=== PATIENT | male | born 1970 | race American Indian/Alaskan Native ===

== ENCOUNTER 2021-09-22 09:37 | Emergency (ER) | payer SELFPAY ==
[2021-09-22] MEDS ORDERED: ASPIRIN 81 MG TAB CHEW PO ONE ×2 (11:11→19:00)
[2021-09-22 12:00] LABS: Basophils # (Auto) 0.1 K/mm3 (0.0-0.1); Basophils % (Auto) 0.9 % (0.0-1.8); Eosinophils % (Auto) 0.5 % (0.0-4.3); Hematocrit 45.8 % (35.5-45.6); Lymphocytes # (Auto) 1.4 K/mm3 (1.2-5.4); Lymphocytes % (Auto) 21.2 % (13.4-35.0); Mean Corpuscular HGB Conc 33 % (32-34); Mean Corpuscular Volume 83 fl (84-94); Monocytes # (Auto) 0.6 K/mm3 (0.0-0.8); Monocytes % (Auto) 8.1 % (0.0-7.3); Platelet Count 407 K/mm3 (140-440); Red Cell Distribution Width 15.9 % (13.2-15.2)
--- NOTE | 2021-09-22 12:16 | XRay Report ---
CHEST 2 VIEWS, 09/22/2021 INDICATION: Shortness of breath COMPARISON: Chest radiograph, 01/06/2014 FINDINGS: Support devices: None. Heart: There is stable moderate enlargement of the cardiac silhouette. Lungs/pleura: Stable faint interstitial markings are noted bilaterally. No focal consolidation, large pleural effusion or pneumothorax. Additional findings: No significant acute abnormality. IMPRESSION: 1. Stable enlargement of the cardiac silhouette. 2. Stable faint interstitial markings suggesting mild pulmonary edema. Signer Name: Kathrine Morejon MD Signed: 09/22/2021 12:06 PM Workstation Name: [id number]
[2021-09-22 12:25] LABS: Albumin 4.1 g/dL (3.9-5); Calcium 9.5 mg/dL (8.4-10.2)
[2021-09-22] MEDS ORDERED: POTASSIUM CHLORIDE ER 20 MEQ TAB PO ONE ×2 (13:19→19:00)
[2021-09-22] MEDS ORDERED: MAGNESIUM SULFATE 2 GM/50 ML BAG IV ONE (13:30)
[2021-09-22 16:29] LABS: Calcium 9.4 mg/dL (8.4-10.2)
--- NOTE | 2021-09-22 18:00 | Emergency Department Report ---
ED General Adult HPI - General Chief complaint: Dyspnea/Respdistress Stated complaint: BREATHING PROBLEMS/STOMACH PAINS Time Seen by Provider: 09/22/21 17:52 Source: patient, RN notes reviewed Mode of arrival: Ambulatory Limitations: No Limitations - History of Present Illness Initial comments: The patient was evaluated in the emergency department for symptoms described in the history of present illness. He/she was evaluated in the context of the [facility] COVID-19 pandemic, which necessitated consideration that the patient might be at risk for infection with the virus that causes COVID-19. Institutional protocols and algorithms that pertain to the evaluation of patients at risk for COVID-19 are in a state of rapid change based on information released by regulatory bodies including the CDC and federal and state organizations. These policies and algorithms were followed during the patient's care in the emergency department. Please note that these policies, procedures and recommendations changed on a rapid basis. This is a 51-year-old gentleman who has a history of hypertension and is poorly compliant with his lisinopril. To the best of his knowledge he does not have a past medical history of renal insufficiency, or congestive heart failure. He presents to the department today with a complaint of shortness of breath, epigastric tightness, some trouble breathing, and lower extremity swelling. He denies physical pain per se. His symptoms are present for about a week. He denies travel, surgery, immobilization, DVT and pulmonary embolism risk factors. -: Gradual, days(s) Location: abdomen, left, right, lower extremity Severity scale (0 -10): 0 Consistency: constant Improves with: none Worsens with: none - Related Data Allergies Allergy/AdvReac Type Severity Reaction Status Date / Time No Known Allergies Allergy Unverified 09/22/21 11:03 ED Review of Systems ROS: Stated complaint: BREATHING PROBLEMS/STOMACH PAINS Other details as noted in HPI Constitutional: denies: fever ENT: congestion Respiratory: orthopnea, shortness of breath, SOB with exertion, SOB at rest, wheezing Cardiovascular: edema Gastrointestinal: abdominal pain. denies: nausea, vomiting, hematemesis, melena, hematochezia Genitourinary: denies: dysuria Musculoskeletal: denies: back pain Neurological: denies: weakness Hematological/Lymphatic: denies: easy bleeding ED Past Medical Hx - Past Medical History Hx Hypertension: Yes - Surgical History Past Surgical History?: Yes Additional Surgical History: abd surgery ED Physical Exam - General Limitations: No Limitations General appearance: alert, in no apparent distress - Head Head exam: Present: atraumatic, normocephalic - Eye Eye exam: Present: normal appearance, EOMI. Absent: nystagmus - ENT ENT exam: Present: normal exam, normal orophraynx, mucous membranes moist, normal external ear exam - Neck Neck exam: Present: normal inspection, full ROM. Absent: tenderness, meningismus - Respiratory Respiratory exam: Present: rales. Absent: respiratory distress, rhonchi, stridor - Cardiovascular Cardiovascular Exam: Present: regular rate, normal rhythm, JVD. Absent: marshal ycardia, tachycardia, irregular rhythm, systolic murmur, diastolic murmur, rubs, gallop - GI/Abdominal GI/Abdominal exam: Present: soft. Absent: distended, tenderness, guarding, rebound, rigid, pulsatile mass - Rectal Rectal exam: Present: deferred - Extremities Exam Extremities exam: Present: normal inspection, full ROM, pedal edema (2+ edema in the bilateral lower extremity), other (2+ pulses noted in the bilateral upper and lower extremities. There is no palpable cord. negative Homans sign. Muscular compartments are soft. The pelvis is stable.). Absent: calf tenderne ss - Back Exam Back exam: Present: normal inspection. Absent: tenderness, CVA tenderness (R), CVA tenderness (L), paraspinal tenderness, vertebral tenderness - Neurological Exam Neurological exam: Present: alert, oriented X3, other (No facial droop. Tongue midline. Extraocular movements intact bilaterally. Facial sensation intact to light touch in V1, V2, V3 distribution bilaterally. 5 and a 5 strength in 4 extremities. Sensation intact to light touch in 4 extremities.). Absent: motor sensory deficit - Psychiatric Psychiatric exam: Present: normal affect, normal mood - Skin Skin exam: Present: warm, dry, intact, normal color. Absent: rash ED Course Vital Signs 09/22/21 10:56 Temperature 98.1 F Pulse Rate 78 Respiratory 20 Rate Blood Pressure 217/145 [Right] O2 Sat by Pulse 97 Oximetry ED Medical Decision Making - Lab Data Result diagrams: 09/22/21 11:31 09/22/21 15:46 Vital Signs 09/22/21 10:56 Temperature 98.1 F Pulse Rate 78 Respiratory 20 Rate Blood Pressure 217/145 [Right] O2 Sat by Pulse 97 Oximetry Lab Results 09/22/21 09/22/21 09/22/21 Range/Units 01:43 11:31 11:31 WBC 6.8 (4.5-11.0) K/mm3 RBC 5.50 H (3.65-5.03) M/mm3 Hgb 15.0 (11.8-15.2) gm/dl Hct 45.8 H (35.5-45.6) % MCV 83 L (84-94) fl MCH 27 L (28-32) pg MCHC 33 (32-34) % RDW 15.9 H (13.2-15.2) % Plt Count 407 (140-440) K/mm3 Lymph % (Auto) 21.2 (13.4-35.0) % [place] % (Auto) 8.1 H (0.0-7.3) % Eos % (Auto) 0.5 (0.0-4.3) % Baso % (Auto) 0.9 (0.0-1.8) % Lymph # (Auto) 1.4 (1.2-5.4) K/mm3 [place] # (Auto) 0.6 (0.0-0.8) K/mm3 Eos # (Auto) 0.0 (0.0-0.4) K/mm3 Baso # (Auto) 0.1 (0.0-0.1) K/mm3 Seg Neutrophils % 69.3 (40.0-70.0) % Seg Neutrophils # 4.7 (1.8-7.7) K/mm3 Sodium 135 L (137-145) mmol/L Potassium 2.7 L* (3.6-5.0) mmol/L Chloride 93.0 L (98-107) mmol/L Carbon Dioxide 27 (22-30) mmol/L Anion Gap 18 mmol/L BUN 44 H (9-20) mg/dL Creatinine 1.9 H (0.8-1.3) mg/dL Estimated GFR 37 ml/min BUN/Creatinine Ratio 23 % Glucose 129 H (75-100) mg/dL Calcium 9.5 (8.4-10.2) mg/dL Magnesium 1.90 (1.7-2.3) mg/dL Total Bilirubin 2.30 H (0.1-1.2) mg/dL AST 57 H (5-40) units/L ALT 64 H (7-56) units/L Alkaline Phosphatase 85 (35-129) units/L Troponin T 0.022 (0.00-0.029) ng/mL NT-Pro-B Natriuret Pep 5697 H (0-900) pg/mL Total Protein 6.9 (6.3-8.2) g/dL Albumin 4.1 (3.9-5) g/dL Albumin/Globulin Ratio 1.5 % Lipase (13-60) units/L 09/22/21 09/22/21 09/22/21 Range/Units 11:31 14:37 15:46 WBC (4.5-11.0) K/mm3 RBC (3.65-5.03) M/mm3 Hgb (11.8-15.2) gm/dl Hct (35.5-45.6) % MCV (84-94) fl MCH (28-32) pg MCHC (32-34) % RDW (13.2-15.2) % Plt Count (140-440) K/mm3 Lymph % (Auto) (13.4-35.0) % [place] % (Auto) (0.0-7.3) % Eos % (Auto) (0.0-4.3) % Baso % (Auto) (0.0-1.8) % Lymph # (Auto) (1.2-5.4) K/mm3 [place] # (Auto) (0.0-0.8) K/mm3 Eos # (Auto) (0.0-0.4) K/mm3 Baso # (Auto) (0.0-0.1) K/mm3 Seg Neutrophils % (40.0-70.0) % Seg Neutrophils # (1.8-7.7) K/mm3 Sodium 136 L (137-145) mmol/L Potassium 2.8 L* (3.6-5.0) mmol/L Chloride 94.5 L (98-107) mmol/L Carbon Dioxide 24 (22-30) mmol/L Anion Gap 20 mmol/L BUN 44 H (9-20) mg/dL Creatinine 1.9 H (0.8-1.3) mg/dL Estimated GFR 37 ml/min BUN/Creatinine Ratio 23 % Glucose 139 H (75-100) mg/dL Calcium 9.4 (8.4-10.2) mg/dL Magnesium (1.7-2.3) mg/dL Total Bilirubin (0.1-1.2) mg/dL AST (5-40) units/L ALT (7-56) units/L Alkaline Phosphatase (35-129) units/L Troponin T 0.017 (0.00-0.029) ng/mL NT-Pro-B Natriuret Pep (0-900) pg/mL Total Protein (6.3-8.2) g/dL Albumin (3.9-5) g/dL Albumin/Globulin Ratio % Lipase 28 (13-60) units/L - EKG Data -: EKG Interpreted by Ca EKG shows normal: sinus rhythm Rate: normal - EKG Data When compared to previous EKG there are: previous EKG unavailable 09/22/21 18:15 The EKG is interpreted at 11: 07 Sinus rhythm, rate 86 bpm. Left axis deviation, left anterior fascicular block, interventricular conduction delay, QTC is 509 ms. This is an abnormal EKG. This is not a STEMI - Radiology Data Radiology results: pending, report reviewed, image reviewed CHEST 2 VIEWS, 09/22/2021 INDICATION: Shortness of breath COMPARISON: Chest radiograph, 01/06/2014 FINDINGS: Support devices: None. Heart: There is stable moderate enlargement of the cardiac silhouette. Lungs/pleura: Stable faint interstitial markings are noted bilaterally. No focal consolidation, large pleural effusion or pneumothorax. Additional findings: No significant acute abnormality. IMPRESSION: 1. Stable enlargement of the cardiac silhouette. 2. Stable faint interstitial markings suggesting mild pulmonary edema. Signer Name: Kathrine Morejon MD Signed: 09/22/2021 11:06 AM Workstation Name: [id number] - Medical Decision Making Differential diagnosis, include but not limited to: Acute congestive heart failure, congestive heart failure with cardiorenal syndrome, hypertensive urgency, noncompliance, hypokalemia, electrolyte derangement, congestive hepatopathy Assessment and plan: 51-year-old gentleman with evidence of mild to moderate decompensated congestive heart failure with cardiorenal syndrome, manifested by JVD, pulmonary edema, congestive hepatopathy, and elevated proBNP. He denies DVT and pulmonary embolism risk factors, and is low risk by Wells criteria for pulmonary embolism, and he also has a component of hypertensive urgency. Start Lasix, labetalol, potassium supplementation. He is agreeable to admission and hospitalization. Hospital physician, Dr. Peralta to assume care. Contacted cardiology on-call, Dr. Sullivan Discussed the patient's history, physical, laboratory studies and imaging studies and clinical impression. Cardiology will follow in consultation and is agreement with the plan of care. Critical Care Time: Yes Critical care time in (mins) excluding proc time.: 35 Critical care attestation.: If time is entered above; I have spent that time in minutes in the direct care of this critically ill patient, excluding procedure time. ED Disposition Clinical Impression: Cardiorenal syndrome with renal failure, Hypertensive urgency, Hypokalemia, No ncompliance with medication regimen Disposition: ADMITTED INPATIENT Is pt being admited?: Yes Does the pt Need Aspirin: No Condition: Good
[2021-09-22] MEDS ORDERED: FUROSEMIDE 40 MG/4 ML INJ IV ONE (18:05)
--- NOTE | 2021-09-22 18:19 | Consultation ---
History of Present Illness - Reason for Consult Consult date: 09/22/21 Hypertension Requesting physician: ROBERT MARTINEZ - History of Present Illness 51 YO Male with HTN, Medication Noncompliance, Obesity presents ED for evaluation. Patient reports "I feel like my food is getting stuck". Patient states that he has experienced epigastric discomfort over the past 2 days and he is running out of his medication. Patient seen and evaluated in the emergency department. All lab and imaging studies reviewed. Patient found to have uncontrolled hypertension, gastroesophageal reflux disease secondary to medication noncompliance. Patient also found to have clinical symptoms consistent with cardiomyopathy. Patient had fever, chills, chest pain, palpitation, productive cough, skin rash and recent contact, unilateral leg swelling, calf pain, individual/family history of DVT/PE/bleeding/blood clotting disorders, known exposure to COVID-19. Patient treated with antihypertensive therapy with normalization of patient blood pressure. Patient medically optimized and safely discharged home. Patient instructed to follow-up with primary care physician within 1 week with blood pressure log. Patient counseled regarding medication compliance. Past History Past Medical History: hypertension Past Surgical History: No surgical history, Other (Reviewed) Social history: . denies: smoking, alcohol abuse, prescription drug abuse Family history: diabetes, hypertension Medications and Allergies Allergies Allergy/AdvReac Type Severity Reaction Status Date / Time No Known Allergies Allergy Unverified 09/22/21 11:03 Home Medications Medication Instructions Recorded Confirmed Last Taken Type Furosemide [Lasix] 20 mg PO QDAY #30 tablet 09/22/21 Unknown Rx Lisinopril [Zestril] 5 mg PO DAILY #30 09/22/21 Unknown Rx Metoprolol [Lopressor TAB] 25 mg PO BID #60 tablet 09/22/21 Unknown Rx Pantoprazole [Protonix TAB] 20 mg PO QDAY #30 tablet 09/22/21 Unknown Rx Potassium Chloride [K-Dur] 10 meq PO QDAY #30 09/22/21 Unknown Rx Simvastatin 10 mg PO QHS #30 09/22/21 Unknown Rx Active Meds: Active Medications Potassium Chloride (Kcl 10meq/100ml) 10 meq in 100 mls @ 100 mls/hr IV Q1H CAROL Stop: 09/22/21 20:59 Review of Systems Constitutional: no weight loss, no weight gain, no fever, no chills, no sweats Ears, nose, mouth and throat: no nose pain, no nasal congestion, no sinus pressure Respiratory: no cough, no excessive sputum, no hemoptysis, no dyspnea on exertion Gastrointestinal: no abdominal pain, no constipation, no change in bowel habits, no hematemesis Genitourinary Male: no hematuria, no flank pain, no urinary hesitancy, no incontinence Rectal: no pain, no incontinence Musculoskeletal: no neck stiffness, no neck pain, no arm numbness/tingling, no low back pain, no shooting leg pain, no redness of joints Integumentary: no pruritis, no redness, no sores Neurological: no head injury, no transient paralysis, no seizures, no tremors Psychiatric: no memory loss, no sleep disturbances, no hypersomnia, no change in appetite, no change in libido, no suicidal ideation Endocrine: no cold intolerance, no excessive thirst, no polydipsia, no nocturia, no flushing Hematologic/Lymphatic: no easy bleeding Allergic/Immunologic: no urticaria, no wheezing Exam - Constitutional Vitals: Temp Pulse Resp BP Pulse Ox 98.1 F 78 20 217/145 97 09/22/21 10:56 09/22/21 10:56 09/22/21 10:56 09/22/21 10:56 09/22/21 10:56 General appearance: Present: no acute distress, well-nourished - EENT Eyes: Present: PERRL ENT: hearing intact, clear oral mucosa - Neck Neck: Present: supple, normal ROM - Respiratory Respiratory effort: normal Respiratory: bilateral: CTA - Cardiovascular Heart Sounds: Present: S1 & S2. Absent: rub, click - Extremities Extremities: pulses symmetrical, No edema Peripheral Pulses: within normal limits - Abdominal General gastrointestinal: Present: soft, non-tender, non-distended, normal bowel sounds Male genitourinary: Present: normal - Integumentary Integumentary: Present: clear, warm, dry - Musculoskeletal Musculoskeletal: gait normal, strength equal bilaterally - Psychiatric Psychiatric: appropriate mood/affect, intact judgment & insight - Neurologic Neurologic: CNII-XII intact, moves all extremities Results - Labs CBC & Chem 7: 09/22/21 11:31 09/22/21 15:46 Labs: Abnormal lab results 09/22/21 09/22/21 09/22/21 Range/Units 11:31 11:31 15:46 RBC 5.50 H (3.65-5.03) M/mm3 Hct 45.8 H (35.5-45.6) % MCV 83 L (84-94) fl MCH 27 L (28-32) pg RDW 15.9 H (13.2-15.2) % [place] % (Auto) 8.1 H (0.0-7.3) % Sodium 135 L 136 L (137-145) mmol/L Potassium 2.7 L* 2.8 L* (3.6-5.0) mmol/L Chloride 93.0 L 94.5 L (98-107) mmol/L BUN 44 H 44 H (9-20) mg/dL Creatinine 1.9 H 1.9 H (0.8-1.3) mg/dL Glucose 129 H 139 H (75-100) mg/dL Total Bilirubin 2.30 H (0.1-1.2) mg/dL AST 57 H (5-40) units/L ALT 64 H (7-56) units/L NT-Pro-B Natriuret Pep 5697 H (0-900) pg/mL Assessment and Plan - Patient Problems (1) Uncontrolled hypertension Status: Acute Plan to address problem: Patient and reinitiated on antihypertensive therapy with lisinopril and metoprolol with concomitant diuretic therapy with Lasix. Patient struck to follow-up with primary care physician within 1 week for blood pressure management. Patient struck to follow-up with cardiology as needed as outpatient. Patient counseled regarding low-sodium diet. (2) Cardiomyopathy Status: Suspected Qualifiers: Cardiomyopathy type: unspecified Qualified Code(s): I42.9 - Cardiomyopathy, unspecified Plan to address problem: Outpatient cardiology follow-up. (3) GERD (gastroesophageal reflux disease) Status: Acute Qualifiers: Esophagitis presence: without esophagitis Qualified Code(s): K21.9 - Gastro-esophageal reflux disease without esophagitis Plan to address problem: PPI therapy, outpatient GI follow-up. (4) Noncompliance with medication regimen Status: Acute Plan to address problem: Patient counseled regarding medication compliance. Patient acknowledges understanding instructions. (5) Advance care planning Status: Acute Plan to address problem: Disease education conducted, care plan discussed, diagnoses discussed, prognosis discussed, patient is full code. Patient acknowledges understanding agreement with care plan, +30 minutes. (6) Preventative health care Status: Acute Plan to address problem: Patient counseled regarding low-sodium diet, increase physical activity discha rge, outpatient follow-up with primary care physician for all age and risk factor appropriate screening test.
[2021-09-22] MEDS ORDERED: POTASSIUM CHLORIDE 10 MEQ 10 MEQ/100 ML BAG IV SCH (19:00)
[2021-09-22 21:53] VITALS: BP 165/118
--- NOTE | 2021-09-24 17:15 | Electrocardiograph Report ---
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
== END 2021-09-22 21:51 | disposition admitted as inpatient to this hospital (09) ==
LOC: EDBD → ED 09:37
DX: I12.9 Hypertensive chronic kidney disease with stage 1 through stage 4 chronic kidney disease, or unspecified chronic kidney disease (principal); N18.9 Chronic kidney disease, unspecified; N17.8 Other acute kidney failure; E87.6 Hypokalemia; Z91.14 Patient's other noncompliance with medication regimen; Z98.890 Other specified postprocedural states
CPT/HCPCS: 36415; 71046; 80048; 80053; 83690; 83735; 83880; 84484; 85025; 93005; 96374; 96375; 99284; J1940; J3490; 99291; J3480

== ENCOUNTER 2021-10-29 18:14 | Inpatient (IN) | payer SELFPAY ==
[2021-10-29] MEDS ORDERED: hydrALAZINE 20 MG/1 ML INJ IV ONE (18:49)
--- NOTE | 2021-10-29 18:50 | Emergency Department Report ---
ED General Adult HPI - General Chief complaint: High BP Stated complaint: I am fine Time Seen by Provider: 10/29/21 18:39 Source: patient, EMS ( EMS documentation not available at time of chart dictation ), RN notes reviewed (Verbal report received from nursing team) Mode of arrival: Stretcher Limitations: Altered Mental Status - History of Present Illness Initial comments: The patient was evaluated in the emergency department for symptoms described in the history of present illness. He/she was evaluated in the context of the global COVID-19 pandemic, which necessitated consideration that the patient might be at risk for infection with the virus that causes COVID-19. Institutional protocols and algorithms that pertain to the evaluation of henrique ents at risk for COVID-19 are in a state of rapid change based on information released by regulatory bodies including the CDC and federal and state organizations. These policies and algorithms were followed during the patient's care in the emergency department. Please note that these policies, procedures and recommendations changed on a rapid basis. This is a 51-year-old gentleman who was brought to the hospital by emergency medical services. As per verbal report from charge nurse, who received report from EMS, 911 was called because the patient has been having intermittent confusion. He is also jaundiced and has lower extremity swelling. Apparently, the patient lives with his girlfriend. EMS reported to the charge nurse who took triage that this patient has no trauma and has unremarkable vital signs with exception of hypertension. In the department, the patient denies physical pain. He states that he thinks he has hypertension, and thinks that he is jaundiced, but he is not certain. He currently denies headache, neck pain, chest pain, abdominal pain, shortness of breath, nausea, vomiting and diarrhea. He is not currently accompanied by friends or family at this time for collateral information or additional information. His last known well time is not explicitly known -: unknown Severity scale (0 -10): 0 - Related Data Allergies Allergy/AdvReac Type Severity Reaction Status Date / Time No Known Allergies Allergy Verified 10/29/21 18:23 ED Review of Systems ROS: Stated complaint: HYPERTENSION Other details as noted in HPI Constitutional: denies: fever Eyes: denies: eye discharge ENT: denies: epistaxis Respiratory: denies: cough Cardiovascular: edema. denies: chest pain Gastrointestinal: denies: abdominal pain, hematemesis, melena, hematochezia Neurological: confusion Hematological/Lymphatic: denies: easy bleeding ED Past Medical Hx - Past Medical History Previous Medical History?: Yes Hx Hypertension: Yes Hx Congestive Heart Failure: Yes ED Physical Exam - General Limitations: Altered Mental Status, Physical Limitation General appearance: in no apparent distress, obese - Head Head exam: Present: atraumatic, normocephalic - Eye Eye exam: Present: normal appearance, EOMI, scleral icterus - ENT ENT exam: Present: normal exam, normal orophraynx, mucous membranes moist, normal external ear exam - Neck Neck exam: Present: normal inspection, full ROM. Absent: tenderness, meningismus - Respiratory Respiratory exam: Present: normal lung sounds bilaterally, decreased breath sounds. Absent: wheezes, rales, rhonchi, stridor - Cardiovascular Cardiovascular Exam: Present: regular rate, normal rhythm, normal heart sounds. Absent: bradycardia, tachycardia, irregular rhythm, systolic murmur, diastolic murmur, rubs, gallop - GI/Abdominal GI/Abdominal exam: Present: soft, normal bowel sounds, organomegaly (There is right-sided hepatomegaly noted). Absent: distended, tenderness, guarding, rebound, rigid - Rectal Rectal exam: Present: deferred - Extremities Exam Extremities exam: Present: normal inspection, full ROM, pedal edema (3+ edema noted in the bilateral lower extremities), other (2+ pulses noted in the bilateral upper and lower extremities. There is no palpable cord. negative Homans sign. Muscular compartments are soft. The pelvis is stable.). Absent: calf tenderness - Back Exam Back exam: Present: normal inspection. Absent: tenderness, CVA tenderness (R), CVA tenderness (L), paraspinal tenderness, vertebral tenderness - Neurological Exam Neurological exam: Present: altered (The patient is awake and alert to name and location. He knows the year is 2021. He does not know the name of the president.), other (There is no facial droop. The tongue is midline. EOMI. 5/5 strength in 4 extremities) - Psychiatric Psychiatric exam: Present: flat affect - Skin Skin exam: Present: warm, dry, intact, normal color. Absent: rash ED Course Vital Signs 10/29/21 18:18 Temperature 97.4 F L Pulse Rate 97 H Respiratory 18 Rate Blood Pressure 203/156 [Left] O2 Sat by Pulse 95 Oximetry - Reevaluation(s) Reevaluation #1: 10/29/21 19:33 Differential diagnosis, including but not limited to: Hepatic encephalopathy, toxic encephalopathy, pneumonia, CHF, intracranial l esion, UTI, thyroid derangement Hypertensive urgency Assessment and plan: 51-year-old gentleman, last known well time not explicitly known, presenting with evidence of probable cirrhosis and/or hepatic disease, manifested by hepatomegaly, scleral icterus, and lower extremity swelling. He is afebrile with reassuring vital signs with exception of hypertension. He is moving 4 extremities and protecting his airway. A noncontrast CT scan of the brain is negative for acute findings. Laboratory studies pending. We will administer hydralazine for blood pressure control. We are awaiting remainder of laboratory studies. Patient is agreeable to admission and hospitalization. 10/29/21 20:02 Laboratory studies reviewed and appreciated Patient found to have hyponatremia, which is likely hypervolemic hyponatremia, in conjunction with metabolic acidosis, azotemia, uremia, elevated proBNP, and elevated CK. Contacted nephrology on-call, Dr. Carrillo. Discussed the patient's history, physical, laboratory studies and imaging studies and clinical impression. Recommend trial dose of Lasix, 80 mg. Request urine studies, as well as renal ultrasound. Nephrology will be able to follow in consultation. I will order Lasix, and renal ultrasound. We will order renal ultrasound as routine. I will defer to inpatient team to follow-up. 10/29/21 20:37 At this point in time, suspect congestive hepatopathy, likely secondary to hypertensive renal insufficiency 10/29/21 20:39 The afternoon hospitalist is capped for admissions. Care will be transferred to the oncoming ER physician, to contact nocturnal physician/hospitalist to arrange admission. ED Medical Decision Making - Lab Data Result diagrams: 10/29/21 19:04 10/29/21 19:04 Vital Signs 10/29/21 18:18 Temperature 97.4 F L Pulse Rate 97 H Respiratory 18 Rate Blood Pressure 203/156 [Left] O2 Sat by Pulse 95 Oximetry - EKG Data -: EKG Interpreted by [place] EKG shows normal: sinus rhythm Rate: normal - EKG Data When compared to previous EKG there are: previous EKG unavailable 10/29/21 20:03 The EKG is interpreted at 19: 50. Sinus rhythm, rate 95 bpm. Normal axis, normal P wave axis, poor R wave progression, QTC 4 8 0 ms, and left ventricular hypertrophy. This is an abnormal EKG. This is not a STEMI - Radiology Data Radiology results: pending, report reviewed, image reviewed CT head/brain wo con INDICATION: Altered Mental Status. TECHNIQUE: All CT scans at this location are performed using CT dose reduction for ALARA by means of automated exposure control. COMPARISON: None available. FINDINGS: There is no evidence of hemorrhage, hydrocephalus, brain edema, or mass effect/mass lesion. There is mild global atrophy and mild chronic small vessel ischemic change. The included paranasal sinuses and mastoid air cells are clear. The orbits appear unremarkable. IMPRESSION: 1. No acute findings. Signer Name: Oumar Chen MD Signed: 10/29/2021 6:22 PM Workstation Name: [id number] CHEST 1 VIEW INDICATION / CLINICAL INFORMATION: Altered Mental Status. COMPARISON: None available. FINDINGS: SUPPORT DEVICES: None. HEART / M EDIASTINUM: Cardiac silhouette is moderately enlarged. LUNGS / PLEURA: Pulmonary venous hypertension is present without interstitial pulmonary edema. The lungs appear grossly clear. No suggestion of pneumonia or significant pleural effusion. No pneumothorax. ADDITIONAL FINDINGS: No significant add itional findings. IMPRESSION: 1. Enlarged cardiac silhouette with pulmonary venous hypertension. Signer Name: Evita Gilbert MD Signed: 10/29/2021 6:42 PM Workstation Name: [id number] Critical Care Time: Yes Critical care time in (mins) excluding proc time.: 35 Critical care attestation.: If time is entered above; I have spent that time in minutes in the direct care of this critically ill patient, excluding procedure time. ED Disposition Clinical Impression: Hypertensive urgency, Volume overload, Renal insufficiency, Uremia, Metabolic acidosis, Elevated CK, Altered mental status Disposition: ADMITTED INPATIENT Is pt being admited?: Yes Does the pt Need Aspirin: No Condition: Fair
--- NOTE | 2021-10-29 19:27 | Cat Scan Report ---
CT head/brain wo con INDICATION: Altered Mental Status. TECHNIQUE: All CT scans at this location are performed using CT dose reduction for ALARA by means of automated e xposure control. COMPARISON: None available. FINDINGS: There is no evidence of hemorrhage, hydrocephalus, brain edema, or mass effect/mass lesion. There is mild global atrophy and mild chronic small vessel ischemic change. The included paranasal sinuses and mastoid air cells are clear. The orbits appear unremarkable. IMPRESSION: 1. No acute findings. Signer Name: Oumar Chen MD Signed: 10/29/2021 7:22 PM Workstation Name: [id number]
[2021-10-29 19:32] LABS: Basophils % (Auto) 0.3 % (0.0-1.8); Hematocrit 49.9 % (35.5-45.6); Hemoglobin 16.1 gm/dl (11.8-15.2); Lymphocytes # (Auto) 0.9 K/mm3 (1.2-5.4); Mean Corpuscular HGB Conc 32 % (32-34); Mean Corpuscular Volume 82 fl (84-94); Monocytes # (Auto) 0.7 K/mm3 (0.0-0.8); Monocytes % (Auto) 5.6 % (0.0-7.3); Platelet Count 353 K/mm3 (140-440); Red Blood Count 6.09 M/mm3 (3.65-5.03); Red Cell Distribution Width 17.5 % (13.2-15.2)
[2021-10-29 19:43] LABS: INR 1.47 (0.87-1.13)
[2021-10-29 19:44] LABS: Albumin 3.4 g/dL (3.9-5); Calcium 9.5 mg/dL (8.4-10.2)
--- NOTE | 2021-10-29 19:47 | XRay Report ---
CHEST 1 VIEW INDICATION / CLINICAL INFORMATION: Altered Mental Status. COMPARISON: None available. FINDINGS: SUPPORT DEVICES: None. HEART / MEDIASTINUM: Cardiac silhouette is moderately enlarged. LUNGS / PLEURA: Pulmonary venous hypertension is present without interstitial pulmonary edema. The rich ngs appear grossly clear. No suggestion of pneumonia or significant pleural effusion. No pneumothorax . ADDITIONAL FINDINGS: No significant additional findings. IMPRESSION: 1. Enlarged cardiac silhouette with pulmonary venous hypertension. Signer Name: Evita Gilbert MD Signed: 10/29/2021 7:42 PM Workstation Name: [id number]
[2021-10-29] MEDS ORDERED: FUROSEMIDE 40 MG/4 ML INJ IV ONE (20:01)
[2021-10-29 20:13] LABS: Hepatitis B Surface Antigen Non-Reactive (Negative); Hepatitis C Virus Antibody Non-Reactive (NonReactive)
--- NOTE | 2021-10-29 22:25 | Event Note ---
Appreciate nephrology consult, will follow with official consult pending. In review of initial labs and discussion with Dr. Hobbs, will move forward with diuretic challenge given edema, BP. May need cardene gtt if unable to safely reduce BP. Suspecting hypertensive urgency contributing to kidney and heart dysfunction with subsequent hepatic congestion, will need further workup.
[2021-10-30] MEDS ORDERED: hydrALAZINE 20 MG/1 ML INJ ONE (00:35)
[2021-10-30] MEDS: hydrALAZINE 20 MG/1 ML INJ IV PRN ×3 (00:40→23:50)
[2021-10-30] MEDS ORDERED: ONDANSETRON 4 MG/2 ML INJ IV PRN (00:44)
[2021-10-30] MEDS ORDERED: MORPHINE 4 MG/1 ML INJ IV PRN ×2 (00:44→17:09)
[2021-10-30] MEDS ORDERED: ACETAMINOPHEN 325 MG TAB PO PRN (00:44)
[2021-10-30] MEDS ORDERED: MORPHINE 2 MG/1 ML INJ IV PRN ×2 (00:44→17:09)
[2021-10-30] MEDS ORDERED: ALBUTEROL 2.5 MG/3 ML NEBU IH PRN (00:44)
[2021-10-30 01:00] LABS: Creatinine,Urine 36.1 mg/dL (0.1-20.0)
--- NOTE | 2021-10-30 01:16 | History and Physical Report ---
History of Present Illness Date of examination: 10/30/21 Date of admission: 10/30/21 00:44 Chief complaint: High blood pressure History of present illness: 51-year-old gentleman, last known well time not explicitly known, presenting with evidence of probable cirrhosis and/or hepatic disease, manifested by hepatomegaly, scleral icterus, and lower extremity swelling. He is afebrile with reassuring vital signs with exception of hypertension. He is moving 4 extremities and protecting his airway. A noncontrast CT scan of the brain is negative for acute findings. Laboratory studies pending. We will administer hydralazine for blood pressure control. In the emergency room patient is found to have BUN of 110 and creatinine 3.1, bicarb 20, sodium 136, total creatinine kinase 1863, ammonia 12.2 total bilirubin 5.80 and proBNP [id number] Contacted nephrology on-call, Dr. Carrillo. Discussed the patient's history, physical, laboratory studies and imaging studies and clinical impression. Recommend trial dose of Lasix, 80 mg. Request urine studies, as well as renal ultrasound. Nephrology will be able to follow in consultation. We also consult GI for evaluation Past History Past Medical History: heart failure, hypertension Past Surgical History: No surgical history Social history: no significant social history Family history: hypertension Medications and Allergies Allergies Allergy/AdvReac Type Severity Reaction Status Date / Time No Known Allergies Allergy Verified 10/29/21 18:23 Active Meds: Active Medications Acetaminophen (Acetaminophen 325 Mg Tab) 650 mg PO Q4H PRN PRN Reason: Pain MILD(1-3)/Fever >100.5/MILTON Albuterol (Albuterol 2.5 Mg/3 Ml Nebu) 2.5 mg IH Q3HRT PRN PRN Reason: Shortness Of Breath Albuterol/Ipratropium (Ipratropium/Albuterol Sulfate 3 Ml Ampul.Neb) 1 ampul IH Q6HRT CAROL Clonidine HCl (Clonidine 0.1 Mg Tab) 0.1 mg PO Q12HR CAROL Famotidine (Famotidine 20 Mg Tab) 20 mg PO BID CAROL Hydralazine HCl (Hydralazine 20 Mg/1 Ml Inj) 10 mg IV Q6H PRN PRN Reason: htn Last Admin: 10/30/21 00:40 Dose: 10 mg Morphine Sulfate (Morphine 2 Mg/1 Ml Inj) 2 mg IV Q4H PRN PRN Reason: Pain, Moderate (4-6) Morphine Sulfate (Morphine 4 Mg/1 Ml Inj) 4 mg IV Q4H PRN PRN Reason: Pain , Severe (7-10) Ondansetron HCl (Ondansetron 4 Mg/2 Ml Inj) 4 mg IV Q8H PRN PRN Reason: Nausea And Vomiting Sodium Chloride (Sodium Chloride 0.9% 10 Ml Flush Syringe) 10 ml IV BID CAROL Sodium Chloride (Sodium Chloride 0.9% 10 Ml Flush Syringe) 10 ml IV PRN PRN PRN Reason: LINE FLUSH Review of Systems All systems: negative Constitutional: other (Confusion, scleral icterus and lower extremity swelling) Exam - Constitutional Vitals: Temp Pulse Resp BP Pulse Ox 97.4 F L 142 H 19 179/140 94 10/29/21 18:18 10/30/21 00:45 10/30/21 00:45 10/30/21 00:45 10/30/21 00:45 General appearance: Present: no acute distress, well-nourished - EENT Eyes: Present: PERRL ENT: hearing intact, clear oral mucosa - Neck Neck: Present: supple, normal ROM - Respiratory Respiratory effort: normal Respiratory: bilateral: CTA - Cardiovascular Heart Sounds: Present: S1 & S2. Absent: rub, click - Extremities Extremities: pulses symmetrical, No edema Peripheral Pulses: within normal limits - Abdominal General gastrointestinal: Present: soft, non-tender, non-distended, normal bowel sounds Male genitourinary: Present: normal - Integumentary Integumentary: Present: clear, warm, dry - Musculoskeletal Musculoskeletal: gait normal, strength equal bilaterally - Psychiatric Psychiatric: appropriate mood/affect, intact judgment & insight - Neurologic Neurologic: CNII-XII intact, moves all extremities Results - Labs CBC & Chem 7: 10/29/21 19:04 10/29/21 19:04 Labs: Laboratory Last Values WBC 11.7 K/mm3 (4.5-11.0) H 10/29/21 19:04 RBC 6.09 M/mm3 (3.65-5.03) H 10/29/21 19:04 Hgb 16.1 gm/dl (11.8-15.2) H 10/29/21 19:04 Hct 49.9 % (35.5-45.6) H 10/29/21 19:04 MCV 82 fl (84-94) L 10/29/21 19:04 MCH 26 pg (28-32) L 10/29/21 19:04 MCHC 32 % (32-34) 10/29/21 19:04 RDW 17.5 % (13.2-15.2) H 10/29/21 19:04 Plt Count 353 K/mm3 (140-440) 10/29/21 19:04 Lymph % (Auto) 8.0 % (13.4-35.0) L 10/29/21 19:04 Gordon % (Auto) 5.6 % (0.0-7.3) 10/29/21 19:04 Eos % (Auto) 0.0 % (0.0-4.3) 10/29/21 19:04 Baso % (Auto) 0.3 % (0.0-1.8) 10/29/21 19:04 Lymph # (Auto) 0.9 K/mm3 (1.2-5.4) L 10/29/21 19:04 Gordon # (Auto) 0.7 K/mm3 (0.0-0.8) 10/29/21 19:04 Eos # (Auto) 0.0 K/mm3 (0.0-0.4) 10/29/21 19:04 Baso # (Auto) 0.0 K/mm3 (0.0-0.1) 10/29/21 19:04 Seg Neutrophils % 86.1 % (40.0-70.0) H 10/29/21 19:04 Seg Neutrophils # 10.0 K/mm3 (1.8-7.7) H 10/29/21 19:04 PT 19.6 Sec. (12.2-14.9) H 10/29/21 19:04 INR 1.47 (0.87-1.13) H 10/29/21 19:04 APTT 29.0 Sec. (24.2-36.6) 10/29/21 19:04 Sodium 136 mmol/L (137-145) L 10/29/21 19:04 Potassium 4.8 mmol/L (3.6-5.0) 10/29/21 19:04 Chloride 86.3 mmol/L (98-107) L 10/29/21 19:04 Carbon Dioxide 20 mmol/L (22-30) L 10/29/21 19:04 Anion Gap 35 mmol/L 10/29/21 19:04 BUN 110 mg/dL (9-20) H 10/29/21 19:04 Creatinine 3.1 mg/dL (0.8-1.3) H 10/29/21 19:04 Estimated GFR 21 ml/min 10/29/21 19:04 BUN/Creatinine Ratio 35 % 10/29/21 19:04 Glucose 119 mg/dL (75-100) H 10/29/21 19:04 Calcium 9.5 mg/dL (8.4-10.2) 10/29/21 19:04 Total Bilirubin 5.80 mg/dL (0.1-1.2) H 10/29/21 19:04 AST 62 units/L (5-40) H 10/29/21 19:04 ALT 40 units/L (7-56) 10/29/21 19:04 Alkaline Phosphatase 89 units/L (35-129) 10/29/21 19:04 Ammonia 12.0 umol/L (25-60) L 10/29/21 19:04 Total Creatine Kinase 1863 units/L (55-170) H 10/29/21 19:04 NT-Pro-B Natriuret Pep 44742 pg/mL (0-900) H 10/29/21 19:04 Total Protein 6.5 g/dL (6.3-8.2) 10/29/21 19:04 Albumin 3.4 g/dL (3.9-5) L 10/29/21 19:04 Albumin/Globulin Ratio 1.1 % 10/29/21 19:04 TSH 2.670 mlU/mL (0.270-4.200) 10/29/21 19:04 Urine Creatinine 36.1 mg/dL (0.1-20.0) H 10/30/21 00:29 Urine Sodium 66 mmol/L 10/30/21 00:29 Salicylates < 0.3 mg/dL (2.8-20.0) L 10/29/21 19:04 Acetaminophen 5.0 ug/mL (10.0-30.0) L 10/29/21 19:04 Plasma/Serum Alcohol < 0.01 % (0-0.07) 10/29/21 19:04 Hepatitis A IgM Ab Non-reactive (NonReactive) 10/29/21 19:04 Hep Bs Antigen Non-reactive (Negative) 10/29/21 19:04 Hep B Core IgM Ab Non-reactive (NonReactive) 10/29/21 19:04 Hepatitis C Antibody Non-reactive (NonReactive) 10/29/21 19:04 - Imaging and Cardiology Chest x-ray: report reviewed CT Scan - head: report reviewed Assessment and Plan VTE prophylaxis?: Mechanical Plan of care discussed with patient/family: Yes - Patient Problems (1) Hypertensive urgency Current Visit: Yes Status: Acute Plan to address problem: Admit the patient to the [facility] overnight. Hydralazine 10 mg IV every 6 hours as needed. Lasix 40 mg IV daily. Clonidine 0.1 mg p.o. twice daily. Will consult nephrology for evaluation. Recheck CBC BMP in the morning (2) TRUONG (acute kidney injury) Current Visit: Yes Status: Acute Plan to address problem: Avoid nephrotoxic drug. Renally dose medication. Renal ultrasound. Nephrology consult. Recheck BMP in the morning (3) Cirrhosis Current Visit: Yes Status: Acute Plan to address problem: We counseled the patient regarding quit drinking. Will consult GI for evaluation. Albumin 25% IV x1 dose. Lasix 40 mg IV daily (4) Elevated CK Current Visit: Yes Status: Acute Plan to address problem: We will monitor the patient closely. Recheck CK in the morning. Nephrology evaluation (5) Uremia Current Visit: Yes Status: Acute Plan to address problem: We will monitor the patient closely. Recheck BMP in the morning. Nephrology evaluation (6) Volume overload Current Visit: Yes Status: Acute Plan to address problem: Fluid restriction. We counseled the patient regarding quit drinking. Will consult GI for evaluation. Albumin 25% IV x1 dose. Lasix 40 mg IV daily (7) Metabolic encephalopathy Current Visit: Yes Status: Acute Plan to address problem: Most likely secondary to cirrhosis/hepatic disease manifested by hepatomegaly scleral icterus and lower extremity swelling and TRUONG. We will monitor the patient closely. We consult GI and nephrology for evaluation (8) DVT prophylaxis Current Visit: Yes Status: Acute Plan to address problem: SCD for DVT prophylaxis. Pepcid 20 mg p.o. twice daily for GI prophylaxis. Patient is a full code
[2021-10-30] MEDS ORDERED: ALBUMIN HUMAN 25% (25 GM/100 ML) INJ IV ONE (01:18)
[2021-10-30 02:52] LABS: Hyaline Casts,Urine 4 /LPF; Mucus,Urine FEW /HPF
[2021-10-30 03:16] LABS: Bilirubin,Urine Negative (Negative); Blood,Urine Negative (Negative); Color,Urine Straw (Yellow)
[2021-10-30] MEDS: cloNIDine 0.1 MG TAB PO SCH ×2 (04:33→23:44)
[2021-10-30] MEDS: IPRATROPIUM/ALBUTEROL SULFATE 3 ML AMPUL.NEB IH SCH ×4 (06:05→19:52)
--- NOTE | 2021-10-30 07:45 | Progress Note ---
Assessment and Plan Assessment and plan: History of present illness: 51-year-old gentleman, last known well time not explicitly known, presenting with evidence of probable cirrhosis and/or hepatic disease, manifested by hepatomegaly, scleral icterus, and lower extremity swelling. He is afebrile with reassuring vital signs with exception of hypertension. He is moving 4 extremities and protecting his airway. A noncontrast CT scan of the brain is negative for acute findings. Laboratory studies pending. We will administer hydralazine for blood pressure control. In the emergency room patient is found to have BUN of 110 and creatinine 3.1, bicarb 20, sodium 136, total creatinine kinase 1863, ammonia 12.2 total bilirubin 5.80 and proBNP 11925 Contacted nephrology on-call, Dr. Carrillo. Discussed the patient's history, physical, laboratory studies and imaging studies and clinical impression. Recommend trial dose of Lasix, 80 mg. Request urine studies, as well as renal ultrasound. Nephrology will be able to follow in consultation. We also consult GI for evaluation Admitted for hypertensive emergency, alcholic hepatitis, acute kidney injury Assessment and Plan: #Hypertensive emergency #Acute kidney injury due to vasomotor nephropathy #Cirrhosis #Alcoholic hepatitis #Jaundice #Acute hepatic encephalopathy #Rhabdomyolysis Plan: - blood pressure regimen initiated: norvasc, amlodipine, nadalol, spironalactone, lasix. prn hydralazine and labetalol. - nephrology consulted, currently recommends trial of lasix, renal us and studies ordered - strict I/O - trend renal makers daily - patient likely has cirrhosis and alcholic hepatitis. GI consultation - US liver ordered, hepatitis panel - trend hepatic markers daily - some concern for hepatorenal syndrome, FeNA ordered - lactulose ordered. DISPO: more alert and oriented on my encounter. VSS. can be downgraded from CCU to med/surg The high probability of a clinically significant, sudden or life threatening deterioration of the [multi] system(s) required my full and direct attention, intervention and personal management. The aggregate critical care time was [60] minutes. This time is in addition to time spent performing reported procedures but includes the following: [x] Data Review and interpretation [x] Patient assessment and monitoring of vital signs [x] Documentation [x] Medication orders and management History Interval history: More alert and oriented on bedside encounter. AOx4 however slightly confused at times. Fiance present during conversation. Patient is a heavy alcoholic drinking 12 pack per day. Hospitalist Physical - Physical exam Narrative exam: Physical Exam: VITAL SIGNS: Reviewed. GENERAL: The patient appears normally developed, Vital signs as documented. HEAD: No signs of head trauma. EYES: Jaundice sclera EARS: Hearing grossly intact. MOUTH: Oropharynx is normal. NECK: No adenopathy, no JVD. CHEST: Chest with clear breath sounds bilaterally. No wheezes, rales, or rhonchi. CARDIAC: Regular rate and rhythm. S1 and S2, without murmurs, gallops, or rubs. VASCULAR: Bilateral lower extremity edema peripheral pulses normal and equal in all extremities. ABDOMEN: Soft, non tender and non distended. No rebound or guarding, and no masses palpated. Bowel Sounds normal. MUSCULOSKELETAL: Good range of motion of all major joints. Extremities without clubbing, cyanosis or edema. NEUROLOGIC EXAM: Alert and oriented x 4. no focal sensory or strength deficits. PSYCHIATRIC: Mood normal. SKIN: detail exam as documented in skin assessment - Constitutional Vitals: Temp Pulse Resp BP Pulse Ox 97.4 F L 138 H 18 177/137 95 10/29/21 18:18 10/30/21 05:01 10/30/21 05:01 10/30/21 06:45 10/30/21 06:45 General appearance: Present: no acute distress, well-nourished Results - Labs CBC & Chem 7: 10/29/21 19:04 10/29/21 19:04 Labs: Laboratory Last Values WBC 11.7 K/mm3 (4.5-11.0) H 10/29/21 19:04 RBC 6.09 M/mm3 (3.65-5.03) H 10/29/21 19:04 Hgb 16.1 gm/dl (11.8-15.2) H 10/29/21 19:04 Hct 49.9 % (35.5-45.6) H 10/29/21 19:04 MCV 82 fl (84-94) L 10/29/21 19:04 MCH 26 pg (28-32) L 10/29/21 19:04 MCHC 32 % (32-34) 10/29/21 19:04 RDW 17.5 % (13.2-15.2) H 10/29/21 19:04 Plt Count 353 K/mm3 (140-440) 10/29/21 19:04 Lymph % (Auto) 8.0 % (13.4-35.0) L 10/29/21 19:04 [place] % (Auto) 5.6 % (0.0-7.3) 10/29/21 19:04 Eos % (Auto) 0.0 % (0.0-4.3) 10/29/21 19:04 Baso % (Auto) 0.3 % (0.0-1.8) 10/29/21 19:04 Lymph # (Auto) 0.9 K/mm3 (1.2-5.4) L 10/29/21 19:04 [place] # (Auto) 0.7 K/mm3 (0.0-0.8) 10/29/21 19:04 Eos # (Auto) 0.0 K/mm3 (0.0-0.4) 10/29/21 19:04 Baso # (Auto) 0.0 K/mm3 (0.0-0.1) 10/29/21 19:04 Seg Neutrophils % 86.1 % (40.0-70.0) H 10/29/21 19:04 Seg Neutrophils # 10.0 K/mm3 (1.8-7.7) H 10/29/21 19:04 PT 19.6 Sec. (12.2-14.9) H 10/29/21 19:04 INR 1.47 (0.87-1.13) H 10/29/21 19:04 APTT 29.0 Sec. (24.2-36.6) 10/29/21 19:04 Sodium 136 mmol/L (137-145) L 10/29/21 19:04 Potassium 4.8 mmol/L (3.6-5.0) 10/29/21 19:04 Chloride 86.3 mmol/L (98-107) L 10/29/21 19:04 Carbon Dioxide 20 mmol/L (22-30) L 10/29/21 19:04 Anion Gap 35 mmol/L 10/29/21 19:04 BUN 110 mg/dL (9-20) H 10/29/21 19:04 Creatinine 3.1 mg/dL (0.8-1.3) H 10/29/21 19:04 Estimated GFR 21 ml/min 10/29/21 19:04 BUN/Creatinine Ratio 35 % 10/29/21 19:04 Glucose 119 mg/dL (75-100) H 10/29/21 19:04 Calcium 9.5 mg/dL (8.4-10.2) 10/29/21 19:04 Total Bilirubin 5.80 mg/dL (0.1-1.2) H 10/29/21 19:04 AST 62 units/L (5-40) H 10/29/21 19:04 ALT 40 units/L (7-56) 10/29/21 19:04 Alkaline Phosphatase 89 units/L (35-129) 10/29/21 19:04 Ammonia 12.0 umol/L (25-60) L 10/29/21 19:04 Total Creatine Kinase 1863 units/L (55-170) H 10/29/21 19:04 NT-Pro-B Natriuret Pep 20198 pg/mL (0-900) H 10/29/21 19:04 Total Protein 6.5 g/dL (6.3-8.2) 10/29/21 19:04 Albumin 3.4 g/dL (3.9-5) L 10/29/21 19:04 Albumin/Globulin Ratio 1.1 % 10/29/21 19:04 TSH 2.670 mlU/mL (0.270-4.200) 10/29/21 19:04 Urine Color Straw (Yellow) 10/30/21 00:29 Urine Turbidity Clear (Clear) 10/30/21 00:29 Urine pH 7.0 (5.0-7.0) 10/30/21 00:29 Ur Specific [place] 1.030 (1.003-1.030) 10/30/21 00:29 Urine Protein 100 mg/dl mg/dL (Negative) 10/30/21 00:29 Urine Glucose (UA) Negative mg/dL (Negative) 10/30/21 00:29 Urine Ketones Negative mg/dL (Negative) 10/30/21 00:29 Urine Blood Negative (Negative) 10/30/21 00: Urine Nitrite Negative (Negative) 10/30/21 00: Ur Reducing Substances Not Reportable 10/30/21 00:29 Urine Bilirubin Negative (Negative) 10/30/21 00:29 Urine Ictotest Not Reportable 10/30/21 00:29 Urine Urobilinogen 0.0 mg/dL (<2.0) 10/30/21 00:29 Ur Leukocyte Esterase 1+ (Negative) 10/30/21 00:29 Urine WBC (Auto) 3.0 /HPF (0.0-6.0) 10/30/21 00:29 Urine RBC (Auto) 5.0 /HPF (0.0-6.0) 10/30/21 00:29 U Epithel Cells (Auto) 1.0 /HPF (0-13.0) 10/30/21 00:29 Hyaline Casts 4 /LPF 10/30/21 00:29 Urine Mucus Few /HPF 10/30/21 00:29 Urine Osmolality 339 Mosm/kg 10/30/21 00:29 Urine Creatinine 36.1 mg/dL (0.1-20.0) H 10/30/21 00:29 Urine Sodium 66 mmol/L 10/30/21 00:29 Salicylates < 0.3 mg/dL (2.8-20.0) L 10/29/21 19:04 Acetaminophen 5.0 ug/mL (10.0-30.0) L 10/29/21 19:04 Plasma/Serum Alcohol < 0.01 % (0-0.07) 10/29/21 19:04 Hepatitis A IgM Ab Non-reactive (NonReactive) 10/29/21 19:04 Hep Bs Antigen Non-reactive (Negative) 10/29/21 19:04 Hep B Core IgM Ab Non-reactive (NonReactive) 10/29/21 19:04 Hepatitis C Antibody Non-reactive (NonReactive) 10/29/21 19:04 Active Medications - Current Medications Current Medications: Generic Name Dose Route Start Last Admin Trade Name Freq PRN Reason Stop Dose Admin Acetaminophen 650 mg 10/30/21 00:44 Acetaminophen 325 Mg Tab PO Q4H PRN Pain MILD(1-3)/Fever >100.5/[place]ILTON Albuterol 2.5 mg 10/30/21 00:44 Albuterol 2.5 Mg/3 Ml Nebu IH Q3HRT PRN Shortness Of Breath Albuterol/Ipratropium 1 ampul 10/30/21 02:00 10/30/21 06:05 Ipratropium/Albuterol Sulfate 3 Ml Ampul.Neb IH Not Given Q6HRT [facility] Amlodipine Besylate 5 mg 10/30/21 10:00 Amlodipine 5 Mg Tab PO QDAY [facility] Clonidine HCl 0.1 mg 10/30/21 04:30 10/30/21 04:33 Clonidine 0.1 Mg Tab PO 0.1 mg Q12HR CAROL Administration Famotidine 10 mg 10/30/21 10:00 Famotidine 10 Mg Tab PO BID [facility] Furosemide 40 mg 10/30/21 10:00 Furosemide 40 Mg/4 Ml Inj IV QDAY [facility] Hydralazine HCl 10 mg 10/30/21 00:35 10/30/21 00:40 Hydralazine 20 Mg/1 Ml Inj IV 10 mg Q6H PRN Administration htn Morphine Sulfate 2 mg 10/30/21 00:44 Morphine 2 Mg/1 Ml Inj IV Q4H PRN Pain, Moderate (4-6) Morphine Sulfate 4 mg 10/30/21 00:44 Morphine 4 Mg/1 Ml Inj IV Q4H PRN Pain , Severe (7-10) Ondansetron HCl 4 mg 10/30/21 00:44 Ondansetron 4 Mg/2 Ml Inj IV Q8H PRN Nausea And Vomiting Sodium Chloride 10 ml 10/30/21 10:00 Sodium Chloride 0.9% 10 Ml Flush Syringe IV BID [facility] Sodium Chloride 10 ml 10/30/21 00:44 Sodium Chloride 0.9% 10 Ml Flush Syringe IV PRN PRN LINE FLUSH
[2021-10-30] MEDS ORDERED: NORepinephrine/NS 8 MG-250 ML 8 MG/250 ML INFUS..BTL IV SCH (09:00)
--- NOTE | 2021-10-30 09:16 | Ultrasound Report ---
ULTRASOUND RENAL INDICATION: Renal insufficiency. COMPARISON: No relevant prior imaging study available. FINDINGS: RIGHT KIDNEY: Size: 11.1 cm. Echogenicity: Normal. Cortical thickness: Normal. Hydronephrosis: None. Cyst or mass: None. Stones: None. LEFT KIDNEY: Size: 10.1 cm. Echogenicity: Normal. Cortical thickness: Normal. Hydronephrosis: None. Cyst or mass: None. Stones: None. Urinary Bladder: No significant abnormality. Free Fluid: None. Additional Findings: None. IMPRESSION 1. No acute sonographic abnormality of the kidneys. Signer Name: Evita Gilbert MD Signed: 10/30/2021 9:12 AM Workstation Name: [id number]
[2021-10-30] MEDS: FAMOTIDINE 10 MG TAB PO SCH ×2 (09:30→14:59)
[2021-10-30] MEDS ORDERED: FAMOTIDINE 20 MG TAB PO SCH (10:00)
[2021-10-30] MEDS: amLODIPine 5 MG TAB PO SCH (10:03)
[2021-10-30] MEDS: FUROSEMIDE 40 MG/4 ML INJ IV SCH (10:10)
[2021-10-30] MEDS ORDERED: LACTULOSE 20 GM/30 ML ORAL LIQD PO SCH (12:00)
[2021-10-30] MEDS: SPIRONOLACTONE 50 MG TAB PO SCH (13:52)
--- NOTE | 2021-10-30 14:41 | Consultation ---
History of Present Illness - Reason for Consult Consult date: 10/30/21 acute renal failure - History of Present Illness 51-year-old man who presents with edema, hypertensive crisis with findings of probable cirrhosis and/or hepatic disease, manifested by hepatomegaly, scleral icterus, TRUONG. Patient denies any history of known kidney disease, never seen nephrology. Notes long history of hypertension and is not compliant with his medications regularly. Currently notes edema, denies dyspnea. Patient however is poor historian. Family at bedside confirms poor compliance with medications. Past History Past Medical History: heart failure, hypertension Past Surgical History: No surgical history Social history: no significant social history Family history: hypertension Medications and Allergies Allergies Allergy/AdvReac Type Severity Reaction Status Date / Time No Known Allergies Allergy Verified 10/29/21 18:23 Active Meds: Active Medications Acetaminophen (Acetaminophen 325 Mg Tab) 650 mg PO Q4H PRN PRN Reason: Pain MILD(1-3)/Fever >100.5/[place] Albuterol (Albuterol 2.5 Mg/3 Ml Nebu) 2.5 mg IH Q3HRT PRN PRN Reason: Shortness Of Breath Albuterol/Ipratropium (Ipratropium/Albuterol Sulfate 3 Ml Ampul.Neb) 1 ampul IH Q6HRT [facility] Last Admin: 10/30/21 06:05 Dose: Not Given Amlodipine Besylate (Amlodipine 5 Mg Tab) 5 mg PO QDAY [facility] Last Admin: 10/30/21 10:03 Dose: 5 mg Clonidine HCl (Clonidine 0.1 Mg Tab) 0.1 mg PO Q12HR [facility] Last Admin: 10/30/21 04:33 Dose: 0.1 mg Famotidine (Famotidine 10 Mg Tab) 10 mg PO BID [facility] Last Admin: 10/30/21 09:30 Dose: 10 mg Furosemide (Furosemide 40 Mg/4 Ml Inj) 40 mg IV QDAY [facility] Last Admin: 10/30/21 10:10 Dose: 40 mg Hydralazine HCl (Hydralazine 20 Mg/1 Ml Inj) 10 mg IV Q6H PRN PRN Reason: htn Last Admin: 10/30/21 00:40 Dose: 10 mg Labetalol HCl (Labetalol 20 Mg/4 Ml Inj) 10 mg IV Q4HR PRN PRN Reason: sbp>160 Last Admin: 10/30/21 09:25 Dose: 10 mg Lactulose (Lactulose 20 Gm/30 Ml Oral Liqd) 20 gm PO Q6HR [facility] Last Admin: 10/30/21 13:00 Dose: 20 gm Morphine Sulfate (Morphine 2 Mg/1 Ml Inj) 2 mg IV Q4H PRN PRN Reason: Pain, Moderate (4-6) Morphine Sulfate (Morphine 4 Mg/1 Ml Inj) 4 mg IV Q4H PRN PRN Reason: Pain , Severe (7-10) Nadolol (Nadolol 20 Mg Tab) 40 mg PO QDAY [facility] Ondansetron HCl (Ondansetron 4 Mg/2 Ml Inj) 4 mg IV Q8H PRN PRN Reason: Nausea And Vomiting Sodium Chloride (Sodium Chloride 0.9% 10 Ml Flush Syringe) 10 ml IV BID [facility] Last Admin: 10/30/21 10:00 Dose: 10 ml Sodium Chloride (Sodium Chloride 0.9% 10 Ml Flush Syringe) 10 ml IV PRN PRN PRN Reason: LINE FLUSH Spironolactone (Spironolactone 50 Mg Tab) 50 mg PO QDAY [facility] Last Admin: 10/30/21 13:52 Dose: 50 mg Review of Systems All systems: negative (as per HPI) Exam - Vital Signs Vital signs: Vital Signs Temp Pulse Resp BP Pulse Ox 97.4 F L 97 H 18 203/156 95 10/29/21 18:18 10/29/21 18:18 10/29/21 18:18 10/29/21 18:18 10/29/21 18:18 - Physical Exam Narrative exam: Constitutional: no acute distress Head: NC/AT Neck: supple Lungs: clear to auscultation CV: RRR, no M/R/G Abdomen: soft, non-tender, bowel sounds present Back: nontender Extremities: 3+ edema, pulses WNL Skin: intact Neuro: no focal deficits, alert Results - Lab Results 10/29/21 19:04 10/29/21 19:04 Most recent lab results Calcium 9.5 mg/dL (8.4-10.2) 10/29/21 19:04 Urine Creatinine 36.1 mg/dL (0.1-20.0) H 10/30/21 00:29 Urine Sodium 66 mmol/L 10/30/21 00:29 Assessment and Plan # Acute Kidney Injury: suspect underlying CKD in setting of HTN. May be having cardio-renal and/or hepatorenal changes. - continue with IV Lasix, agree with spironolactone for now pending lab trend - strict Is/Os - renal imaging WNL - urinalysis, urine studies reviewed- no hematuria, check UP/C - alcohol, salicylate negative - serologies ordered - BP control - avoid nephrotoxins - renally dose medications - no immediate need for renal replacement therapy pending course - may benefit from IV albumin, HRS treatments pending course # Edema: check UP/C. Agree with hepatology consult regarding cirrhosis, jaundice. May benefit from echocardiogram given history of uncontrolled HTN, potential cardiac effects and hepatic congestion # HTN: BP improving, agree with current regimen # Alcohol Hepatitis, Likely Cirrhosis: ultrasound pending, GI consult pending.
--- NOTE | 2021-10-30 17:06 | Gastroenterology Consultation ---
History of Present Illness - Reason for Consult Consult date: 10/30/21 Cirrhosis Requesting physician: BIGG HAN - History of Present Illness The patient is seen with his brother, and they both provide the history. He was brought to the ER for confusion in the last 24 hours, but per the brother, he has been unwell for 2-4 weeks. The family had noted severe BLE edema, and abdominal swelling. He was also very weak. There was no GI bleeding, fevers, or CP at home, but he did have SOB. There is no hx of hepatitis by report, but he does have a history of his "esophagus closing up." There is mention in an old chart of possible achalasia, but the patient can not provide information on that. The patient does have a multiyear history of daily EtOH consumption, of up to 12 beers/day, with frequent bouts of liquor too. Past History Past Medical History: heart failure, hypertension Past Surgical History: No surgical history Social history: smoking, alcohol abuse Family history: hypertension Medications and Allergies Allergies Allergy/AdvReac Type Severity Reaction Status Date / Time No Known Allergies Allergy Verified 10/29/21 18:23 Active Meds: Active Medications Acetaminophen (Acetaminophen 325 Mg Tab) 650 mg PO Q4H PRN PRN Reason: Pain MILD(1-3)/Fever >100.5/[place] Albuterol (Albuterol 2.5 Mg/3 Ml Nebu) 2.5 mg IH Q3HRT PRN PRN Reason: Shortness Of Breath Albuterol/Ipratropium (Ipratropium/Albuterol Sulfate 3 Ml Ampul.Neb) 1 ampul IH Q6HRT [facility] Last Admin: 10/30/21 14:47 Dose: Not Given Amlodipine Besylate (Amlodipine 5 Mg Tab) 5 mg PO QDAY [facility] Last Admin: 10/30/21 10:03 Dose: 5 mg Clonidine HCl (Clonidine 0.1 Mg Tab) 0.1 mg PO Q12HR [facility] Last Admin: 10/30/21 04:33 Dose: 0.1 mg Famotidine (Famotidine 10 Mg Tab) 10 mg PO BID [facility] Last Admin: 10/30/21 14:59 Dose: Not Given Furosemide (Furosemide 40 Mg/4 Ml Inj) 40 mg IV QDAY [facility] Last Admin: 10/30/21 10:10 Dose: 40 mg Hydralazine HCl (Hydralazine 20 Mg/1 Ml Inj) 10 mg IV Q6H PRN PRN Reason: htn Last Admin: 10/30/21 15:23 Dose: 10 mg Labetalol HCl (Labetalol 20 Mg/4 Ml Inj) 10 mg IV Q4HR PRN PRN Reason: sbp>160 Last Admin: 10/30/21 09:25 Dose: 10 mg Lactulose (Lactulose 20 Gm/30 Ml Oral Liqd) 20 gm PO Q6HR [facility] Last Admin: 10/30/21 13:00 Dose: 20 gm Morphine Sulfate (Morphine 2 Mg/1 Ml Inj) 2 mg IV Q4H PRN PRN Reason: Pain, Moderate (4-6) Morphine Sulfate (Morphine 4 Mg/1 Ml Inj) 4 mg IV Q4H PRN PRN Reason: Pain , Severe (7-10) Nadolol (Nadolol 20 Mg Tab) 40 mg PO QDAY [facility] Ondansetron HCl (Ondansetron 4 Mg/2 Ml Inj) 4 mg IV Q8H PRN PRN Reason: Nausea And Vomiting Sodium Chloride (Sodium Chloride 0.9% 10 Ml Flush Syringe) 10 ml IV BID [facility] Last Admin: 10/30/21 10:00 Dose: 10 ml Sodium Chloride (Sodium Chloride 0.9% 10 Ml Flush Syringe) 10 ml IV PRN PRN PRN Reason: LINE FLUSH Spironolactone (Spironolactone 50 Mg Tab) 50 mg PO QDAY [facility] Last Admin: 10/30/21 13:52 Dose: 50 mg I HAVE REVIEWED/RECONCILED MEDICATIONS Review of Systems - Review of Systems All systems: negative (as noted in the HPI.) Exam - Constitutional Vital Signs: Temp Pulse Resp BP Pulse Ox 97.4 F L 73 14 151/115 97 10/29/21 18:18 10/30/21 15:23 10/30/21 11:31 10/30/21 15:23 10/30/21 15:16 General appearance: no acute distress - EENT Eyes: PERRL, EOM intact, scleral icterus ENT: hearing intact, clear oral mucosa, poor dentition - Neck Neck: supple, normal ROM - Respiratory Respiratory effort: normal Respiratory: bilateral: CTA - Cardiovascular Rhythm: regular Heart Sounds: Present: S1 & S2 Extremities: no ischemia Extremity abnormal: edema (3+ BLE) - Gastrointestinal General gastrointestinal: Present: soft, non-tender, distended (Moderate ascites present) - Integumentary Integumentary: Present: clear, warm, dry - Neurologic Neurological: oriented to person, oriented to place, other (No gross asterixis, but the patient is slow to answer some questions.) - Psychiatric Psychiatric: appropriate mood/affect - Labs CBC & Chem 7: 10/29/21 19:04 10/30/21 15:51 Lab Results: Laboratory Results - last 24 hr 10/29/21 10/29/21 10/29/21 19:04 19:04 19:04 WBC 11.7 H RBC 6.09 H Hgb 16.1 H Hct 49.9 H MCV 82 L MCH 26 L MCHC 32 RDW 17.5 H Plt Count 353 Lymph % (Auto) 8.0 L [place] % (Auto) 5.6 Eos % (Auto) 0.0 Baso % (Auto) 0.3 Lymph # (Auto) 0.9 L [place] # (Auto) 0.7 Eos # (Auto) 0.0 Baso # (Auto) 0.0 Seg Neutrophils % 86.1 H Seg Neutrophils # 10.0 H PT INR APTT Sodium Potassium Chloride Carbon Dioxide Anion Gap BUN Creatinine Estimated GFR BUN/Creatinine Ratio Glucose Calcium Total Bilirubin AST ALT Alkaline Phosphatase Ammonia Total Creatine Kinase NT-Pro-B Natriuret Pep 83551 H Total Protein Albumin Albumin/Globulin Ratio TSH Urine Color Urine Turbidity Urine pH Ur Specific [place] Urine Protein Urine Glucose (UA) Urine Ketones Urine Blood Urine Nitrite Ur Reducing Substances Urine Bilirubin Urine Ictotest Urine Urobilinogen Ur Leukocyte Esterase Urine WBC (Auto) Urine RBC (Auto) U Epithel Cells (Auto) Hyaline Casts Urine Mucus Urine Osmolality Urine Creatinine Urine Sodium Salicylates Acetaminophen Plasma/Serum Alcohol Hepatitis A IgM Ab Non-reactive Hep Bs Antigen Non-reactive Hep B Core IgM Ab Non-reactive Hepatitis C Antibody Non-reactive 10/29/21 10/29/21 10/29/21 19:04 19:04 19:04 WBC RBC Hgb Hct MCV MCH MCHC RDW Plt Count Lymph % (Auto) [place] % (Auto) Eos % (Auto) Baso % (Auto) Lymph # (Auto) [place] # (Auto) Eos # (Auto) Baso # (Auto) Seg Neutrophils % Seg Neutrophils # PT 19.6 H INR 1.47 H APTT 29.0 Sodium 136 L Potassium 4.8 Chloride 86.3 L Carbon Dioxide 20 L Anion Gap 35 BUN 110 H Creatinine 3.1 H Estimated GFR 21 BUN/Creatinine Ratio 35 Glucose 119 H Calcium 9.5 Total Bilirubin 5.80 H AST 62 H ALT 40 Alkaline Phosphatase 89 Ammonia 12.0 L Total Creatine Kinase 1863 H NT-Pro-B Natriuret Pep Total Protein 6.5 Albumin 3.4 L Albumin/Globulin Ratio 1.1 TSH Urine Color Urine Turbidity Urine pH Ur Specific [place] Urine Protein Urine Glucose (UA) Urine Ketones Urine Blood Urine Nitrite Ur Reducing Substances Urine Bilirubin Urine Ictotest Urine Urobilinogen Ur Leukocyte Esterase Urine WBC (Auto) Urine RBC (Auto) U Epithel Cells (Auto) Hyaline Casts Urine Mucus Urine Osmolality Urine Creatinine Urine Sodium Salicylates Acetaminophen Plasma/Serum Alcohol Hepatitis A IgM Ab Hep Bs Antigen Hep B Core IgM Ab Hepatitis C Antibody 10/29/21 10/29/21 10/29/21 19:04 19:04 19:04 WBC RBC Hgb Hct MCV MCH MCHC RDW Plt Count Lymph % (Auto) [place] % (Auto) Eos % (Auto) Baso % (Auto) Lymph # (Auto) [place] # (Auto) Eos # (Auto) Baso # (Auto) Seg Neutrophils % Seg Neutrophils # PT INR APTT Sodium Potassium Chloride Carbon Dioxide Anion Gap BUN Creatinine Estimated GFR BUN/Creatinine Ratio Glucose Calcium Total Bilirubin AST ALT Alkaline Phosphatase Ammonia Total Creatine Kinase NT-Pro-B Natriuret Pep Total Protein Albumin Albumin/Globulin Ratio TSH 2.670 Urine Color Urine Turbidity Urine pH Ur Specific [place] Urine Protein Urine Glucose (UA) Urine Ketones Urine Blood Urine Nitrite Ur Reducing Substances Urine Bilirubin Urine Ictotest Urine Urobilinogen Ur Leukocyte Esterase Urine WBC (Auto) Urine RBC (Auto) U Epithel Cells (Auto) Hyaline Casts Urine Mucus Urine Osmolality Urine Creatinine Urine Sodium Salicylates < 0.3 L Acetaminophen 5.0 L Plasma/Serum Alcohol Hepatitis A IgM Ab Hep Bs Antigen Hep B Core IgM Ab Hepatitis C Antibody 10/29/21 10/30/21 10/30/21 19:04 00:29 00:29 WBC RBC Hgb Hct MCV MCH MCHC RDW Plt Count Lymph % (Auto) [place] % (Auto) Eos % (Auto) Baso % (Auto) Lymph # (Auto) [place] # (Auto) Eos # (Auto) Baso # (Auto) Seg Neutrophils % Seg Neutrophils # PT INR APTT Sodium Potassium Chloride Carbon Dioxide Anion Gap BUN Creatinine Estimated GFR BUN/Creatinine Ratio Glucose Calcium Total Bilirubin AST ALT Alkaline Phosphatase Ammonia Total Creatine Kinase NT-Pro-B Natriuret Pep Total Protein Albumin Albumin/Globulin Ratio TSH Urine Color Straw Urine Turbidity Clear Urine pH 7.0 Ur Specific [place] 1.030 Urine Protein 100 mg/dl Urine Glucose (UA) Negative Urine Ketones Negative Urine Blood Negative Urine Nitrite Negative Ur Reducing Substances Not Reportable Urine Bilirubin Negative Urine Ictotest Not Reportable Urine Urobilinogen 0.0 Ur Leukocyte Esterase 1+ Urine WBC (Auto) 3.0 Urine RBC (Auto) 5.0 U Epithel Cells (Auto) 1.0 Hyaline Casts 4 Urine Mucus Few Urine Osmolality 339 Urine Creatinine 36.1 H Urine Sodium 66 Salicylates Acetaminophen Plasma/Serum Alcohol < 0.01 Hepatitis A IgM Ab Hep Bs Antigen Hep B Core IgM Ab Hepatitis C Antibody Assessment and Plan - Patient Problems (1) TRUONG (acute kidney injury) Current Visit: Yes Status: Acute Plan to address problem: - Per renal service. - His baseline Cr appears to be 1.9 on labs from September (different MRN). - Agree with albumin use. (2) Alcoholic cirrhosis of liver with ascites Current Visit: Yes Status: Acute Plan to address problem: - Use diuretics with caution as per Renal, as I suspect developing HRS, but may also have TRUONG from his CHF/mild rhabdo/poorly controlled HTN. - Will start MVI and protonix therapy. - Hepatitis serologies already negative; if Cr improves enough, would like to get a CT with IV contrast to assess for mass or vascular problem. - Discriminate function too low to consider steroids at this point. - Will give IV albumin since on diuretics at present, for 6 doses. (3) CHF (congestive heart failure) Current Visit: Yes Status: Acute Plan to address problem: - Recommend TTE based on clinical course; currently not in florid failure, but per the brother, patient has had an "enlarged heart since 2009."
[2021-10-30] MEDS: LACTULOSE 20 GM/30 ML ORAL LIQD PO SCH (23:46)
[2021-10-30] MEDS: ALBUMIN HUMAN 25% (25 GM/100 ML) INJ IV SCH (23:49)
[2021-10-31] MEDS: ALBUMIN HUMAN 25% (25 GM/100 ML) INJ IV SCH ×3 (05:09→22:59)
[2021-10-31] MEDS: LACTULOSE 20 GM/30 ML ORAL LIQD PO SCH ×3 (05:09→22:11)
[2021-10-31 06:21] LABS: Hemoglobin 14.1 gm/dl (11.8-15.2); Mean Corpuscular HGB Conc 31 % (32-34); Mean Corpuscular Volume 81 fl (84-94); Platelet Count 296 K/mm3 (140-440); Red Blood Count 5.53 M/mm3 (3.65-5.03); Red Cell Distribution Width 17.1 % (13.2-15.2)
[2021-10-31 06:46] LABS: Albumin 3.8 g/dL (3.9-5); Calcium 9.1 mg/dL (8.4-10.2)
--- NOTE | 2021-10-31 08:38 | Progress Note ---
Assessment and Plan Assessment and plan: History of present illness: 51-year-old gentleman, last known well time not explicitly known, presenting with evidence of probable cirrhosis and/or hepatic disease, manifested by hepatomegaly, scleral icterus, and lower extremity swelling. He is afebrile with reassuring vital signs with exception of hypertension. He is moving 4 extremities and protecting his airway. A noncontrast CT scan of the brain is negative for acute findings. Laboratory studies pending. We will administer hydralazine for blood pressure control. In the emergency room patient is found to have BUN of 110 and creatinine 3.1, bicarb 20, sodium 136, total creatinine kinase 1863, ammonia 12.2 total bilirubin 5.80 and proBNP 32967 Contacted nephrology on-call, Dr. Carrillo. Discussed the patient's history, physical, laboratory studies and imaging studies and clinical impression. Recommend trial dose of Lasix, 80 mg. Request urine studies, as well as renal ultrasound. Nephrology will be able to follow in consultation. We also consult GI for evaluation Admitted for hypertensive emergency, alcholic hepatitis, acute kidney injury Hospital Course: 10/31: Albumin infusion noted. Continue lasix mehdi for diuresis. Awaiting interpretation of US liver. When renal function stabilizes, will order CTAP w/ con if ok with nephrology. ECHO pending as well for cardiac eval. Assessment and Plan: #Acute kidney injury due to vasomotor nephropathy #Hypokalemia - Cr: 4.1 on admission, downtrending now 2.1 - strict I/O - trend renal makers daily - nephrology consulted, currently recommends trial of lasix, renal us and studies ordered - ERP: ordered 40 MEQ K IV and 40 MEQ K PO. 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 - lasix, nadalol, spironalactone #Rhabdomyolysis - trend CK - gentle hydration #Hypertensive emergency (resolved) - blood pressure regimen initiated: norvasc, amlodipine, nadalol, spironalactone, lasix. prn hydralazine and labetalol. #Advance care planning Disease education conducted, care plan discussed, diagnoses discussed, prognosis discussed, patient is full code, patient acknowledges understanding and agree with care plan, +30 minutes. DISPO: Med/surg History Interval history: Patient still slightly confused but oriented x 4 on my encounter. Denies audio or visual hallucinations. Family at bedside updated. Hospitalist Physical - Physical exam Narrative exam: Physical Exam: VITAL SIGNS: Reviewed. GENERAL: The patient appears normally developed, Vital signs as documented. HEAD: No signs of head trauma. EYES: Jaundice sclera EARS: Hearing grossly intact. MOUTH: Oropharynx is normal. NECK: No adenopathy, no JVD. CHEST: Chest with clear breath sounds bilaterally. No wheezes, rales, or rhonchi. CARDIAC: Regular rate and rhythm. S1 and S2, without murmurs, gallops, or rubs. VASCULAR: Bilateral lower extremity edema peripheral pulses normal and equal in all extremities. ABDOMEN: Soft, non tender and non distended. No rebound or guarding, and no masses palpated. Bowel Sounds normal. MUSCULOSKELETAL: Good range of motion of all major joints. Extremities without clubbing, cyanosis or edema. NEUROLOGIC EXAM: Alert and oriented x 4. no focal sensory or strength deficits. PSYCHIATRIC: Mood normal. SKIN: detail exam as documented in skin assessment - Constitutional Vitals: Temp Pulse Resp BP Pulse Ox 97.7 F 78 20 158/124 98 10/31/21 05:10 10/31/21 05:10 10/31/21 05:10 10/31/21 05:10 10/31/21 05:10 General appearance: Present: no acute distress, well-nourished Results - Labs CBC & Chem 7: 10/31/21 04:59 10/31/21 04:59 Labs: Laboratory Last Values WBC 12.4 K/mm3 (4.5-11.0) H 10/31/21 04:59 RBC 5.53 M/mm3 (3.65-5.03) H 10/31/21 04:59 Hgb 14.1 gm/dl (11.8-15.2) 10/31/21 04:59 Hct 45.0 % (35.5-45.6) 10/31/21 04:59 MCV 81 fl (84-94) L 10/31/21 04:59 MCH 26 pg (28-32) L 10/31/21 04:59 MCHC 31 % (32-34) L 10/31/21 04:59 RDW 17.1 % (13.2-15.2) H 10/31/21 04:59 Plt Count 296 K/mm3 (140-440) 10/31/21 04:59 Lymph % (Auto) 8.0 % (13.4-35.0) L 10/29/21 19:04 [place] % (Auto) 5.6 % (0.0-7.3) 10/29/21 19:04 Eos % (Auto) 0.0 % (0.0-4.3) 10/29/21 19:04 Baso % (Auto) 0.3 % (0.0-1.8) 10/29/21 19:04 Lymph # (Auto) 0.9 K/mm3 (1.2-5.4) L 10/29/21 19:04 [place] # (Auto) 0.7 K/mm3 (0.0-0.8) 10/29/21 19:04 Eos # (Auto) 0.0 K/mm3 (0.0-0.4) 10/29/21 19:04 Baso # (Auto) 0.0 K/mm3 (0.0-0.1) 10/29/21 19:04 Seg Neutrophils % [place] 10/31/21 04:59 Seg Neutrophils # 10.0 K/mm3 (1.8-7.7) H 10/29/21 19:04 PT 19.6 Sec. (12.2-14.9) H 10/29/21 19:04 INR 1.47 (0.87-1.13) H 10/29/21 19:04 APTT 29.0 Sec. (24.2-36.6) 10/29/21 19:04 Sodium 140 mmol/L (137-145) 10/31/21 04:59 Potassium 2.6 mmol/L (3.6-5.0) L* D 10/31/21 04:59 Chloride 90.0 mmol/L (98-107) L 10/31/21 04:59 Carbon Dioxide 30 mmol/L (22-30) D 10/31/21 04:59 Anion Gap 23 mmol/L 10/31/21 04:59 BUN 105 mg/dL (9-20) H 10/31/21 04:59 Creatinine 2.1 mg/dL (0.8-1.3) H 10/31/21 04:59 Estimated GFR 40 ml/min 10/31/21 04:59 BUN/Creatinine Ratio 50 % 10/31/21 04:59 Glucose 110 mg/dL (75-100) H 10/31/21 04:59 Calcium 9.1 mg/dL (8.4-10.2) 10/31/21 04:59 Total Bilirubin 6.40 mg/dL (0.1-1.2) H 10/31/21 04:59 AST 99 units/L (5-40) H 10/31/21 04:59 ALT 55 units/L (7-56) 10/31/21 04:59 Alkaline Phosphatase 77 units/L (35-129) 10/31/21 04:59 Ammonia 12.0 umol/L (25-60) L 10/29/21 19:04 Total Creatine Kinase 1863 units/L (55-170) H 10/29/21 19:04 NT-Pro-B Natriuret Pep 97272 pg/mL (0-900) H 10/29/21 19:04 Total Protein 6.7 g/dL (6.3-8.2) 10/31/21 04:59 Albumin 3.8 g/dL (3.9-5) L 10/31/21 04:59 Albumin/Globulin Ratio 1.3 % 10/31/21 04:59 TSH 2.670 mlU/mL (0.270-4.200) 10/29/21 19:04 PTH Intact 170.9 pg/mL (15-65) H 10/31/21 04:59 Urine Color Straw (Yellow) 10/30/21 00:29 Urine Turbidity Clear (Clear) 10/30/21 00:29 Urine pH 7.0 (5.0-7.0) 10/30/21 00:29 Ur Specific [place] 1.030 (1.003-1.030) 10/30/21 00:29 Urine Protein 100 mg/dl mg/dL (Negative) 10/30/21 00:29 Urine Glucose (UA) Negative mg/dL (Negative) 10/30/21 00: Urine Ketones Negative mg/dL (Negative) 10/30/21 00: Urine Blood Negative (Negative) 10/30/21 00: Urine Nitrite Negative (Negative) 10/30/21 00: Ur Reducing Substances Not Reportable 10/30/21 00: Urine Bilirubin Negative (Negative) 10/30/21 00: Urine Ictotest Not Reportable 10/30/21 00: Urine Urobilinogen 0.0 mg/dL (<2.0) 10/30/21 00:29 Ur Leukocyte Esterase 1+ (Negative) 10/30/21 00: Urine WBC (Auto) 3.0 /HPF (0.0-6.0) 10/30/21 00: Urine RBC (Auto) 5.0 /HPF (0.0-6.0) 10/30/21 00: U Epithel Cells (Auto) 1.0 /HPF (0-13.0) 10/30/21: Hyaline Casts 4 /LPF 10/30/21 00: Urine Mucus Few /HPF 10/30/21 00:29 Urine Osmolality 339 Mosm/kg 10/30/21 00:29 Urine Creatinine 36.1 mg/dL (0.1-20.0) H 10/30/21 00:29 Urine Sodium 66 mmol/L 10/30/21 00:29 Salicylates < 0.3 mg/dL (2.8-20.0) L 10/29/21 19:04 Acetaminophen 5.0 ug/mL (10.0-30.0) L 10/29/21 19:04 Plasma/Serum Alcohol < 0.01 % (0-0.07) 10/29/21 19:04 Hepatitis A IgM Ab Non-reactive (NonReactive) 10/29/21 19:04 Hep Bs Antigen Non-reactive (Negative) 10/29/21 19:04 Hep B Core IgM Ab Non-reactive (NonReactive) 10/29/21 19:04 Hepatitis C Antibody Non-reactive (NonReactive) 10/29/21 19:04 Wu/IV: Voiding Method Urinal Active Medications - Current Medications Current Medications: Generic Name Dose Route Start Last Admin Trade Name Freq PRN Reason Stop Dose Admin Acetaminophen 650 mg 10/30/21 00:44 Acetaminophen 325 Mg Tab PO Q4H PRN Pain MILD(1-3)/Fever >100.5/MILTON Albumin Human 25 gm 10/30/21 22:00 10/31/21 05:09 Albumin Human 25% (25 Gm/100 Ml) Inj IV 11/01/21 14:01 25 gm Q8HR CAROL Administration Albuterol 2.5 mg 10/30/21 00:44 Albuterol 2.5 Mg/3 Ml Nebu IH Q3HRT PRN Shortness Of Breath Amlodipine Besylate 5 mg 10/30/21 10:00 10/30/21 10:03 Amlodipine 5 Mg Tab PO 5 mg QDAY CAROL Administration Clonidine HCl 0.1 mg 10/30/21 04:30 10/30/21 23:44 Clonidine 0.1 Mg Tab PO 0.1 mg Q12HR CAROL Administration Furosemide 40 mg 10/30/21 10:00 10/30/21 10:10 Furosemide 40 Mg/4 Ml Inj IV 40 mg QDAY CAROL Administration Hydralazine HCl 10 mg 10/30/21 00:35 10/30/21 23:50 Hydralazine 20 Mg/1 Ml Inj IV 10 mg Q6H PRN Administration htn Labetalol HCl 10 mg 10/30/21 08:51 10/30/21 09:25 Labetalol 20 Mg/4 Ml Inj IV 10 mg Q4HR PRN Administration sbp>160 Lactulose 20 gm 10/30/21 22:00 10/31/21 05:09 Lactulose 20 Gm/30 Ml Oral Liqd PO 20 gm Q8HR CAROL Administration Morphine Sulfate 2 mg 10/30/21 17:09 Morphine 4 Mg/1 Ml Inj IV Q4H PRN Pain , Severe (7-10) Morphine Sulfate 1 mg 10/30/21 17:09 Morphine 2 Mg/1 Ml Inj IV Q4H PRN Pain, Moderate (4-6) Multivitamins 1 each 10/31/21 10:00 Multivitamins ,Therapeutic Tab PO QDAY [facility] Nadolol 40 mg 10/31/21 10:00 Nadolol 20 Mg Tab PO QDAY CAROL Ondansetron HCl 4 mg 10/30/21 00:44 Ondansetron 4 Mg/2 Ml Inj IV Q8H PRN Nausea And Vomiting Pantoprazole Sodium 40 mg 10/31/21 07:30 Pantoprazole 40 Mg Tab PO QDAC CAROL Sodium Chloride 10 ml 10/30/21 10:00 10/30/21 23:45 Sodium Chloride 0.9% 10 Ml Flush Syringe IV 10 ml BID CAROL Administration Sodium Chloride 10 ml 10/30/21 00:44 Sodium Chloride 0.9% 10 Ml Flush Syringe IV PRN PRN LINE FLUSH Spironolactone 50 mg 10/30/21 12:00 10/30/21 13:52 Spironolactone 50 Mg Tab PO 50 mg QDAY CAROL Administration Nutrition/Malnutrition Assess - Dietary Evaluation Nutrition/Malnutrition Findings: Nutrition Notes Start: 10/30/21 09:50 Freq: Status: Active Protocol: Document 10/30/21 09:50 CRISTIANE (Rec: 10/30/21 09:55 CRISTIANE [id number]) Nutrition Notes Need for Assessment generated from: MD Order,Education Current Diagnosis Acute Kidney Injury, Hypertension,Heart Failure Other Pertinent Diagnosis Hypertensive emergency, Uremia , Volume overload, Metabolic encephalopathy Current Diet Cardiac Labs/Tests (10/29/21) BUN 110 Cr 3.1 tBili 5.8 BNP 46299 Pertinent Medications Lasix Height 5 ft 8 in Weight 92.079 kg Etlan Body Weight (kg) 70.00 BMI 30.9 Weight change and time frame Current wt likely sec to fluid overload Weight Status Obese Subjective/Other Information RD consulted for diet education. Pt in ED at this time. Pt admitted with BP of 179/140; BP remains elevated this am. Nephrology following ; GI consulted. PMHx includes EtOH dependence and cirrhosis . Burn Absent Trauma Absent Minimum of two criteria No Nutrition Intervention Follow-Up By: 11/04/21 Additional Comments F/U: intakes, BP, renal function, diet education needs
[2021-10-31] MEDS ORDERED: POTASSIUM CHLORIDE ER 20 MEQ TAB PO SCH (09:00)
[2021-10-31] MEDS ORDERED: NADOLOL 20 MG TAB PO SCH (10:00)
[2021-10-31] MEDS: FUROSEMIDE 40 MG/4 ML INJ IV SCH (10:06)
[2021-10-31] MEDS: cloNIDine 0.1 MG TAB PO SCH ×2 (10:06→22:11)
[2021-10-31] MEDS: MULTIVITAMINS ,THERAPEUTIC TAB PO SCH (10:06)
[2021-10-31] MEDS: amLODIPine 5 MG TAB PO SCH (10:06)
[2021-10-31] MEDS: PANTOPRAZOLE 40 MG TAB PO SCH (10:06)
[2021-10-31] MEDS: POTASSIUM CHLORIDE 10 MEQ 10 MEQ/100 ML BAG IV SCH ×4 (10:10→18:08)
[2021-10-31] MEDS ORDERED: LORazepam 2 MG/ML VIAL IV PRN (12:20)
[2021-10-31] MEDS: SPIRONOLACTONE 50 MG TAB PO SCH (12:29)
[2021-10-31 13:07] LABS: Basophils % (Manual) 0 % (0.0-1.8); Eosinophils % (Manual) 0 % (0.0-4.3); Hypochromasia 1+; Platelet Estimate Consistent w Auto; Total Cells Counted 100
[2021-10-31] MEDS ORDERED: GLUCAGON (HUMAN RECOMBINANT) 1 MG/ML INJ IV STA (13:47)
[2021-10-31 14:13] LABS: Calcium 9.2 mg/dL (8.4-10.2)
--- NOTE | 2021-10-31 14:37 | XRay Report ---
CHEST 1 VIEW 10/31/2021 1:19 PM INDICATION / CLINICAL INFORMATION: s/p code met. COMPARISON: 10/29/2021 FINDINGS: SUPPORT DEVICES: None. HEART / MEDIASTINUM: Stable cardiomegaly LUNGS / PLEURA: Mild pulmonary vascular indistinctness. No pneumothorax. ADDITIONAL FINDINGS: No significant additional findings. IMPRESSION: 1. No acute cardiac pulmonary abnormality. Cardiomegaly and pulmonary edema. Signer Name: Jose Miranda DO Signed: 10/31/2021 2:33 PM Workstation Name: [id number]
--- NOTE | 2021-10-31 14:40 | Electrocardiograph Report ---
[facility] Test Date: 2021-10-30 Test Time: 01:33:55 Pat Name: LEONARD BLACKMON Department: Room: A374 Gender: M [employer]: ALEX : 1970 Requested By: ROBERT MARTINEZ Order Number: [id number] Reading MD: Etienne Moffett Measurements Intervals [place] Rate: 139 P: -78 [place]: 66 QRS: 47 QRSD: 119 T: 153 QT: 346 QTc: 526 Interpretive Statements Sinus or ectopic atrial tachycardia LVH with secondary repolarization abnormality Anterior ST elevation, probably due to LVH Prolonged QT interval No previous ECG available for comparison Electronically Signed On 10-31-2021 14:40:14 EDT by Etienne Moffett
--- NOTE | 2021-10-31 15:29 | Progress Note ---
Assessment and Plan # Acute Kidney Injury: suspect underlying CKD in setting of HTN. May be having cardio-renal and/or hepatorenal changes. Creatinine improving 3.1->2.1 - continue with IV Lasix for now, agree with spironolactone for now - agree with IV albumin per GI - strict Is/Os - renal imaging WNL - urinalysis, urine studies reviewed- no hematuria, check UP/C - alcohol, salicylate negative - serologies ordered - BP control - avoid nephrotoxins - renally dose medications - no immediate need for renal replacement therapy # Edema: check UP/C. Appreciate GI consult regarding cirrhosis, jaundice. May benefit from echocardiogram given history of uncontrolled HTN, potential cardiac effects and hepatic congestion # HTN: BP improving, agree with current regimen # Alcohol Hepatitis, Likely Cirrhosis: ultrasound pending, GI consult noted Subjective Date of service: 10/31/21 Interval history: Resting in bed, no acute issues noted Objective - Exam Narrative Exam: Constitutional: no acute distress Head: NC/AT Neck: supple Lungs: clear to auscultation CV: RRR, no M/R/G Abdomen: soft, non-tender, bowel sounds present Back: nontender Extremities: 3+ edema, pulses WNL Skin: intact Neuro: no focal deficits, alert - Vital Signs Vital signs: Vital Signs - 12hr 10/31/21 10/31/21 10/31/21 04:53 05:10 10:00 Temperature 97.7 F 97.7 F Pulse Rate 78 78 Respiratory 18 20 Rate Blood Pressure 158/124 158/124 [Left] O2 Sat by Pulse 98 98 99 Oximetry 10/31/21 14:18 Temperature Pulse Rate 60 Respiratory Rate Blood Pressure 133/78 [Left] O2 Sat by Pulse 99 Oximetry - Lab 10/31/21 04:59 10/31/21 13:54 Most recent lab results Calcium 9.2 mg/dL (8.4-10.2) 10/31/21 13:54 Urine Creatinine 36.1 mg/dL (0.1-20.0) H 10/30/21 00:29 Urine Sodium 66 mmol/L 10/30/21 00:29 Medications & Allergies - Medications Allergies/Adverse Reactions: Allergies No Known Allergies Allergy (Verified 10/29/21 18:23) Active Medications: Generic Name Dose Route Start Last Admin Trade Name Freq PRN Reason Stop Dose Admin Acetaminophen 650 mg 10/30/21 00:44 Acetaminophen 325 Mg Tab PO Q4H PRN Pain MILD(1-3)/Fever >100.5/[place] Albumin Human 25 gm 10/30/21 22:00 10/31/21 05:09 Albumin Human 25% (25 Gm/100 Ml) Inj IV 11/01/21 14:01 25 gm Q8HR CAROL Administration Albuterol 2.5 mg 10/30/21 00:44 Albuterol 2.5 Mg/3 Ml Nebu IH Q3HRT PRN Shortness Of Breath Amlodipine Besylate 5 mg 10/30/21 10:00 10/31/21 10:06 Amlodipine 5 Mg Tab PO 5 mg QDAY CAROL Administration Clonidine HCl 0.1 mg 10/30/21 04:30 10/31/21 10:06 Clonidine 0.1 Mg Tab PO 0.1 mg Q12HR CAROL Administration Furosemide 40 mg 10/30/21 10:00 10/31/21 10:06 Furosemide 40 Mg/4 Ml Inj IV 40 mg QDAY CAROL Administration Hydralazine HCl 10 mg 10/30/21 00:35 10/30/21 23:50 Hydralazine 20 Mg/1 Ml Inj IV 10 mg Q6H PRN Administration htn Labetalol HCl 10 mg 10/30/21 08:51 10/30/21 09:25 Labetalol 20 Mg/4 Ml Inj IV 10 mg Q4HR PRN Administration sbp>160 Lactulose 20 gm 10/30/21 22:00 10/31/21 05:09 Lactulose 20 Gm/30 Ml Oral Liqd PO 20 gm Q8HR CAROL Administration Lorazepam 2 mg 10/31/21 12:20 Lorazepam 2 Mg/Ml Vial IV Q1H PRN CIWA-Ar 8-15 Lorazepam 4 mg 10/31/21 12:20 Lorazepam 2 Mg/Ml Vial IV Q1H PRN CIWA-Ar 16-25 Morphine Sulfate 2 mg 10/30/21 17:09 Morphine 4 Mg/1 Ml Inj IV Q4H PRN Pain , Severe (7-10) Morphine Sulfate 1 mg 10/30/21 17:09 Morphine 2 Mg/1 Ml Inj IV Q4H PRN Pain, Moderate (4-6) Multivitamins 1 each 10/31/21 10:00 10/31/21 10:06 Multivitamins ,Therapeutic Tab PO 1 each QDAY CAROL Administration Ondansetron HCl 4 mg 10/30/21 00:44 Ondansetron 4 Mg/2 Ml Inj IV Q8H PRN Nausea And Vomiting Pantoprazole Sodium 40 mg 10/31/21 07:30 10/31/21 10:06 Pantoprazole 40 Mg Tab PO 40 mg QDAC CAROL Administration Potassium Chloride 40 meq 10/31/21 14:00 Potassium Chloride Er 20 Meq Tab PO QDAY CAROL Sodium Chloride 10 ml 10/30/21 10:00 10/31/21 10:06 Sodium Chloride 0.9% 10 Ml Flush Syringe IV 10 ml BID CAROL Administration Sodium Chloride 10 ml 10/30/21 00:44 Sodium Chloride 0.9% 10 Ml Flush Syringe IV PRN PRN LINE FLUSH Spironolactone 50 mg 10/30/21 12:00 10/31/21 12:29 Spironolactone 50 Mg Tab PO 50 mg QDAY CAROL Administration
[2021-10-31] MEDS: POTASSIUM CHLORIDE ER 20 MEQ TAB PO SCH (15:57)
[2021-10-31] MEDS ORDERED: SODIUM CHLORIDE 0.9% 500 ML 500 ML IV ONE (16:13)
--- NOTE | 2021-10-31 16:44 | Gastroenterology Progress Note ---
Assessment and Plan - Patient Problems (1) TRUONG (acute kidney injury) Current Visit: Yes Status: Acute Plan to address problem: - Per renal service. - His baseline Cr appears to be 1.9 on labs from September (different MRN). - Agree with albumin use. (2) Alcoholic cirrhosis of liver with ascites Current Visit: Yes Status: Acute Plan to address problem: - Use diuretics with caution as per Renal, as I suspect developing HRS, but may also have TRUONG from his CHF/mild rhabdo/poorly controlled HTN. - Will continue MVI and protonix therapy. - Hepatitis serologies already negative; if Cr improves enough, would like to get a CT with IV contrast to assess for mass or vascular problem. - Discriminate function too low to consider steroids at this point. - Will give IV albumin since on diuretics at present, for 9 doses. (3) CHF (congestive heart failure) Current Visit: Yes Status: Acute Plan to address problem: - Recommend TTE based on clinical course; currently not in florid failure, but per the brother, patient has had an "enlarged heart since 2009." - TTE pending final read (completed). (4) Altered mental status Current Visit: Yes Status: Acute Plan to address problem: - Likely combo of asterixis and DTs. - Will start xifaxan and wean of lactulose given TRUONG and diarrhea. - Continue CIWA and make NPO given somnolence. - Stop all narcotics. Subjective Date of service: 10/31/21 Principal diagnosis: Cirrhosis Interval history: The patient has had a poor appetite and intermittent somnolence and confusion. Urinating and (+) BM without blood, but without continence. He has had no fevers, and VS are improved. No emesis but difficult to swallow (has to be stimulated). Objective - Constitutional Vitals: Temp Pulse Resp BP Pulse Ox 97.7 F 60 20 133/78 99 10/31/21 05:10 10/31/21 14:18 10/31/21 05:10 10/31/21 14:18 10/31/21 14:18 General appearance: disheveled, other (Sleepy) - EENT Eyes: PERRL, EOM intact, scleral icterus ENT: hearing intact, clear oral mucosa, poor dentition - Neck Neck: supple, normal ROM - Respiratory Respiratory effort: normal Respiratory: bilateral: CTA - Cardiovascular Rhythm: regular Heart Sounds: Present: S1 & S2 - Extremities Extremities: no ischemia, No edema - Gastrointestinal General gastrointestinal: Present: soft, non-tender, distended (Moderate ascites) - Neurologic Neurological: disoriented, strength equal bilaterally, asterixis - Labs CBC & Chem 7: 10/31/21 04:59 10/31/21 13:54 Labs: Laboratory Results - last 24 hr 10/30/21 10/31/21 10/31/21 15:51 04:59 04:59 WBC 12.4 H RBC 5.53 H Hgb 14.1 Hct 45.0 MCV 81 L MCH 26 L MCHC 31 L RDW 17.1 H Plt Count 296 Add Manual Diff Complete Total Counted 100 Seg Neutrophils % Serging Machine Operator Seg Neuts % (Manual) 98.0 H Band Neutrophils % 0 Lymphocytes % (Manual) 0 L Reactive Lymphs % (Man) 0 Monocytes % (Manual) 2.0 Eosinophils % (Manual) 0 Basophils % (Manual) 0 Metamyelocytes % 0 Myelocytes % 0 Promyelocytes % 0 Blast Cells % 0 Nucleated RBC % 2.0 H Seg Neutrophils # Man 12.2 H Band Neutrophils # 0.0 Lymphocytes # (Manual) 0.0 L Abs React Lymphs (Man) 0.0 Monocytes # (Manual) 0.2 Eosinophils # (Manual) 0.0 Basophils # (Manual) 0.0 Metamyelocytes # 0.0 Myelocytes # 0.0 Promyelocytes # 0.0 Blast Cells # 0.0 WBC Morphology Not Reportable Hypersegmented Neuts Not Reportable Hyposegmented Neuts Not Reportable Hypogranular Neuts Not Reportable Smudge Cells Not Reportable Toxic Granulation Not Reportable Toxic Vacuolation Not Reportable Dohle Bodies Not Reportable Pelger-Huet Anomaly Not Reportable Osmar Rods Not Reportable Platelet Estimate Consistent w auto Clumped Platelets Not Reportable Plt Clumps, EDTA Not Reportable Large Platelets Not Reportable Giant Platelets Not Reportable Platelet Satelliting Not Reportable Plt Morphology Comment Not Reportable RBC Morphology Not Reportable Dimorphic RBCs Not Reportable Polychromasia Not Reportable Hypochromasia 1+ Poikilocytosis Not Reportable Anisocytosis Not Reportable Microcytosis Not Reportable Macrocytosis Not Reportable Spherocytes Not Reportable Pappenheimer Bodies Not Reportable Sickle Cells Not Reportable Target Cells Not Reportable Tear Drop Cells Not Reportable Ovalocytes Not Reportable Helmet Cells Not Reportable Ramos-[place] Bodies Not Reportable Birchleaf Rings Not Reportable [place] Cells Not Reportable Bite Cells Not Reportable Crenated Cell Not Reportable Elliptocytes Not Reportable Acanthocytes (Spur) Not Reportable Rouleaux Not Reportable Hemoglobin C Crystals Not Reportable Schistocytes Not Reportable Malaria parasites Not Reportable Jerry Bodies Not Reportable Hem Pathologist Commnt No Sodium 138 Potassium Chloride Carbon Dioxide Anion Gap BUN Creatinine 2.4 H Estimated GFR BUN/Creatinine Ratio Glucose POC Glucose Calcium Total Bilirubin AST ALT Alkaline Phosphatase Ammonia Total Protein Albumin Albumin/Globulin Ratio PTH Intact 170.9 H 10/31/21 10/31/21 10/31/21 04:59 13:45 13:54 WBC RBC Hgb Hct MCV MCH MCHC RDW Plt Count Add Manual Diff Total Counted Seg Neutrophils % Seg Neuts % (Manual) Band Neutrophils % Lymphocytes % (Manual) Reactive Lymphs % (Man) Monocytes % (Manual) Eosinophils % (Manual) Basophils % (Manual) Metamyelocytes % Myelocytes % Promyelocytes % Blast Cells % Nucleated RBC % Seg Neutrophils # Man Band Neutrophils # Lymphocytes # (Manual) Abs React Lymphs (Man) Monocytes # (Manual) Eosinophils # (Manual) Basophils # (Manual) Metamyelocytes # Myelocytes # Promyelocytes # Blast Cells # WBC Morphology Hypersegmented Neuts Hyposegmented Neuts Hypogranular Neuts Smudge Cells Toxic Granulation Toxic Vacuolation Dohle Bodies Pelger-Huet Anomaly Osmar Rods Platelet Estimate Clumped Platelets Plt Clumps, EDTA Large Platelets Giant Platelets Platelet Satelliting Plt Morphology Comment RBC Morphology Dimorphic RBCs Polychromasia Hypochromasia Poikilocytosis Anisocytosis Microcytosis Macrocytosis Spherocytes Pappenheimer Bodies Sickle Cells Target Cells Tear Drop Cells Ovalocytes Helmet Cells Ramos-[place] Bodies [place] Rings [place] Cells Bite Cells Crenated Cell Elliptocytes Acanthocytes (Spur) Rouleaux Hemoglobin C Crystals Schistocytes Malaria parasites Jerry Bodies Hem Pathologist Commnt Sodium 140 134 L Potassium 2.6 L* D 3.5 L D Chloride 90.0 L 87.1 L Carbon Dioxide 30 D 29 Anion Gap 23 21 BUN 105 H 95 H Creatinine 2.1 H 2.1 H Estimated GFR 40 40 BUN/Creatinine Ratio 50 45 Glucose 110 H 130 H POC Glucose 148 H Calcium 9.1 9.2 Total Bilirubin 6.40 H 7.00 H AST 99 H 114 H ALT 55 66 H Alkaline Phosphatase 77 84 Ammonia Total Protein 6.7 6.9 Albumin 3.8 L 4.0 Albumin/Globulin Ratio 1.3 1.4 PTH Intact 10/31/21 13:54 WBC RBC Hgb Hct MCV MCH MCHC RDW Plt Count Add Manual Diff Total Counted Seg Neutrophils % Seg Neuts % (Manual) Band Neutrophils % Lymphocytes % (Manual) Reactive Lymphs % (Man) Monocytes % (Manual) Eosinophils % (Manual) Basophils % (Manual) Metamyelocytes % Myelocytes % Promyelocytes % Blast Cells % Nucleated RBC % Seg Neutrophils # Man Band Neutrophils # Lymphocytes # (Manual) Abs React Lymphs (Man) Monocytes # (Manual) Eosinophils # (Manual) Basophils # (Manual) Metamyelocytes # Myelocytes # Promyelocytes # Blast Cells # WBC Morphology Hypersegmented Neuts Hyposegmented Neuts Hypogranular Neuts Smudge Cells Toxic Granulation Toxic Vacuolation Dohle Bodies Pelger-Huet Anomaly Osmar Rods Platelet Estimate Clumped Platelets Plt Clumps, EDTA Large Platelets Giant Platelets Platelet Satelliting Plt Morphology Comment RBC Morphology Dimorphic RBCs Polychromasia Hypochromasia Poikilocytosis Anisocytosis Microcytosis Macrocytosis Spherocytes Pappenheimer Bodies Sickle Cells Target Cells Tear Drop Cells Ovalocytes Helmet Cells Ramos-[place] Bodies [place] Rings Jarrett Cells Bite Cells Crenated Cell Elliptocytes Acanthocytes (Spur) Rouleaux Hemoglobin C Crystals Schistocytes Malaria parasites Jerry Bodies Hem Pathologist Commnt Sodium Potassium Chloride Carbon Dioxide Anion Gap BUN Creatinine Estimated GFR BUN/Creatinine Ratio Glucose POC Glucose Calcium Total Bilirubin AST ALT Alkaline Phosphatase Ammonia 43.0 Total Protein Albumin Albumin/Globulin Ratio PTH Intact
[2021-10-31] MEDS: D5W/LACTATED RINGERS 1,000 ML IV SCH (17:26)
[2021-10-31] MEDS: RIFAXIMIN 550 MG TAB PO SCH (22:11)
[2021-11-01] MEDS: ALBUMIN HUMAN 25% (25 GM/100 ML) INJ IV SCH ×3 (05:00→22:42)
[2021-11-01] MEDS: D5W/LACTATED RINGERS 1,000 ML IV SCH ×2 (05:49→22:42)
[2021-11-01 08:28] LABS: Basophils % (Auto) 0.5 % (0.0-1.8); Eosinophils % (Auto) 0.4 % (0.0-4.3); Hematocrit 46.2 % (35.5-45.6); Hemoglobin 14.6 gm/dl (11.8-15.2); INR 1.76 (0.87-1.13); Lymphocytes # (Auto) 0.5 K/mm3 (1.2-5.4); Lymphocytes % (Auto) 4.5 % (13.4-35.0); Mean Corpuscular HGB Conc 32 % (32-34); Mean Corpuscular Volume 82 fl (84-94); Monocytes # (Auto) 0.6 K/mm3 (0.0-0.8); Platelet Count 205 K/mm3 (140-440); Red Blood Count 5.62 M/mm3 (3.65-5.03); Red Cell Distribution Width 17.2 % (13.2-15.2)
[2021-11-01 08:36] LABS: Albumin 4.4 g/dL (3.9-5); Calcium 9.4 mg/dL (8.4-10.2)
--- NOTE | 2021-11-01 08:37 | Ultrasound Report ---
ULTRASOUND ABDOMEN, LIMITED INDICATION: cirrhosis. COMPARISON: No relevant prior imaging study available. FINDINGS: Pancreas: No significant abnormality. Abdominal Aorta: No significant abnormality. IVC: No significant abnormality. Liver: The liver measures 16.7 cm in length. The liver appears borderline to mildly enlarged but no significant parenchymal disease or mass is detected. Normal hepatopedal blood flow in the main portal vein. Gallbladder: There is a small amount of sludge in the gallbladder. No shadowing gallstones or abnorma l dilatation.. Bile ducts: No significant abnormality. Common bile duct measures 2 mm. Kidneys: Right: 12.5 cm in length. No significant abnormality. Free fluid: None. Additional Findings: None. IMPRESSION: Small amount of sludge in the gallbladder. No findings to suggest acute cholecystitis. Signer Name: Vu Hawthorne Jr, MD Signed: 11/01/2021 8:33 AM Workstation Name: [id number]
[2021-11-01] MEDS: FUROSEMIDE 40 MG/4 ML INJ IV SCH (10:24)
[2021-11-01] MEDS: RIFAXIMIN 550 MG TAB PO SCH ×2 (10:24→22:43)
[2021-11-01] MEDS: cloNIDine 0.1 MG TAB PO SCH (10:24)
[2021-11-01] MEDS: LACTULOSE 20 GM/30 ML ORAL LIQD PO SCH ×2 (10:24→22:43)
[2021-11-01] MEDS: amLODIPine 5 MG TAB PO SCH (10:25)
[2021-11-01] MEDS: PANTOPRAZOLE 40 MG TAB PO SCH (10:25)
[2021-11-01] MEDS: POTASSIUM CHLORIDE ER 20 MEQ TAB PO SCH (10:25)
[2021-11-01] MEDS: MULTIVITAMINS ,THERAPEUTIC TAB PO SCH (10:25)
[2021-11-01] MEDS: SPIRONOLACTONE 50 MG TAB PO SCH (10:26)
--- NOTE | 2021-11-01 10:46 | Progress Note ---
Assessment and Plan # Acute Kidney Injury: suspect underlying CKD in setting of HTN. May be having cardio-renal and/or hepatorenal changes. Creatinine improving 3.1->2.1-->2.7 - Stop lasix - Stop potassium supplementation - Recommend decreasing D5W rate - Place miller - s/p IV albumin per GI - strict Is/Os - renal imaging WNL - urinalysis, urine studies reviewed- no hematuria, check UP/C - alcohol, salicylate negative - serologies ordered - BP control - avoid nephrotoxins - renally dose medications - no immediate need for renal replacement therapy # Edema: Appreciate GI consult regarding cirrhosis, jaundice. 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 Significant other at bedside. Voided x 1 today per report. Objective - Exam Narrative Exam: Constitutional: no acute distress Head: NC/AT Neck: supple Lungs: clear to auscultation CV: RRR, no M/R/G Abdomen: soft, non-tender, bowel sounds present Back: nontender Extremities: 3+ edema, pulses WNL Skin: intact Neuro: Confused - Vital Signs Vital signs: Vital Signs - 12hr 11/01/21 11/01/21 11/01/21 04:12 10:24 10:25 Temperature 98.8 F Pulse Rate 55 L Respiratory 16 Rate Blood Pressure 131/99 133/106 133/103 O2 Sat by Pulse 96 Oximetry 11/01/21 10:26 Temperature Pulse Rate Respiratory Rate Blood Pressure 133/103 O2 Sat by Pulse Oximetry - Lab 11/01/21 07:51 11/01/21 07:51 Most recent lab results Calcium 9.4 mg/dL (8.4-10.2) 11/01/21 07:51 Urine Creatinine 36.1 mg/dL (0.1-20.0) H 10/30/21 00:29 Urine Sodium 66 mmol/L 10/30/21 00:29 Medications & Allergies - Medications Allergies/Adverse Reactions: Allergies No Known Allergies Allergy (Verified 10/29/21 18:23) Active Medications: Generic Name Dose Route Start Last Admin Trade Name Freq PRN Reason Stop Dose Admin Acetaminophen 650 mg 10/30/21 00:44 Acetaminophen 325 Mg Tab PO Q4H PRN Pain MILD(1-3)/Fever >100.5/MILTON Albumin Human 25 gm 10/30/21 22:00 11/01/21 05:00 Albumin Human 25% (25 Gm/100 Ml) Inj IV 11/02/21 14:01 25 gm Q8HR CAROL Administration Albuterol 2.5 mg 10/30/21 00:44 Albuterol 2.5 Mg/3 Ml Nebu IH Q3HRT PRN Shortness Of Breath Amlodipine Besylate 5 mg 10/30/21 10:00 11/01/21 10:25 Amlodipine 5 Mg Tab PO 5 mg QDAY CAROL Administration Clonidine HCl 0.1 mg 10/30/21 04:30 11/01/21 10:24 Clonidine 0.1 Mg Tab PO 0.1 mg Q12HR CAROL Administration Furosemide 40 mg 10/30/21 10:00 11/01/21 10:24 Furosemide 40 Mg/4 Ml Inj IV 40 mg QDAY CAROL Administration Hydralazine HCl 10 mg 10/30/21 00:35 10/30/21 23:50 Hydralazine 20 Mg/1 Ml Inj IV 10 mg Q6H PRN Administration htn Dextrose/Lactated Ringer's 1,000 mls @ 75 mls/hr 10/31/21 17:00 11/01/21 05:49 D5lr IV 75 mls/hr DIRECT CAROL Administration Labetalol HCl 10 mg 10/30/21 08:51 10/30/21 09:25 Labetalol 20 Mg/4 Ml Inj IV 10 mg Q4HR PRN Administration sbp>160 Lactulose 20 gm 10/31/21 22:00 11/01/21 10:24 Lactulose 20 Gm/30 Ml Oral Liqd PO 20 gm Q12HR CAROL Administration Lorazepam 2 mg 10/31/21 12:20 Lorazepam 2 Mg/Ml Vial IV Q1H PRN CIWA-Ar 8-15 Lorazepam 4 mg 10/31/21 12:20 Lorazepam 2 Mg/Ml Vial IV Q1H PRN CIWA-Ar 16-25 Multivitamins 1 each 10/31/21 10:00 11/01/21 10:25 Multivitamins ,Therapeutic Tab PO 1 each QDAY CAROL Administration Ondansetron HCl 4 mg 10/30/21 00:44 Ondansetron 4 Mg/2 Ml Inj IV Q8H PRN Nausea And Vomiting Pantoprazole Sodium 40 mg 10/31/21 07:30 11/01/21 10:25 Pantoprazole 40 Mg Tab PO 40 mg QDAC CAROL Administration Potassium Chloride 40 meq 10/31/21 14:00 11/01/21 10:25 Potassium Chloride Er 20 Meq Tab PO 40 meq QDAY CAROL Administration Rifaximin 550 mg 10/31/21 22:00 11/01/21 10:24 Rifaximin 550 Mg Tab PO 550 mg BID CAROL Administration Sodium Chloride 10 ml 10/30/21 10:00 11/01/21 10:26 Sodium Chloride 0.9% 10 Ml Flush Syringe IV 10 ml BID CAROL Administration Sodium Chloride 10 ml 10/30/21 00:44 Sodium Chloride 0.9% 10 Ml Flush Syringe IV PRN PRN LINE FLUSH Spironolactone 50 mg 10/30/21 12:00 11/01/21 10:26 Spironolactone 50 Mg Tab PO 50 mg QDAY CAROL Administration
[2021-11-01] MEDS ORDERED: ACETAMINOPHEN 325 MG TAB PO PRN (12:39)
--- NOTE | 2021-11-01 12:44 | Gastroenterology Progress Note ---
Assessment and Plan - Patient Problems (1) TRUONG (acute kidney injury) Current Visit: Yes Status: Acute Plan to address problem: - Per renal service. - His baseline Cr appears to be 1.9 on labs from September (different MRN). - Agree with albumin use. (2) Alcoholic cirrhosis of liver with ascites Current Visit: Yes Status: Acute Plan to address problem: - Use diuretics with caution as per Renal, as I suspect developing HRS, but may also have TRUONG from his CHF/mild rhabdo/poorly controlled HTN. - Will continue MVI and protonix therapy. - Hepatitis serologies already negative; if Cr improves enough, would like to get a CT with IV contrast to assess for mass or vascular problem. - Discriminate function too low to consider steroids at this point but bili slo wly rising. - Will give IV albumin since on diuretics at present, for 9 doses. (3) CHF (congestive heart failure) Current Visit: Yes Status: Acute Plan to address problem: - EF 20-25% this admit. (4) Altered mental status Current Visit: Yes Status: Acute Plan to address problem: - Likely combo of asterixis and DTs. - Will continue xifaxan and wean off lactulose given TRUONG and diarrhea (convert lactulose to QD on Monday). - Continue CIWA and clear liquids given somnolence. - Stop all narcotics. Subjective Date of service: 11/01/21 Principal diagnosis: Cirrhosis Interval history: The patient is much calmer today, but still disoriented. Does not know where he is, but is oriented to self. No N/V and denies abdominal pain; compliant with taking meds per nursing. Multiple BMs with lactulose over last 24 hours. Objective - Constitutional Vitals: Temp Pulse Resp BP Pulse Ox 98.8 F 55 L 16 133/103 96 11/01/21 04:12 11/01/21 04:12 11/01/21 04:12 11/01/21 10:26 11/01/21 04:12 General appearance: no acute distress, other (Less agitated/sleepy) - EENT Eyes: PERRL, scleral icterus ENT: hearing intact, poor dentition - Respiratory Respiratory effort: normal Respiratory: bilateral: CTA - Cardiovascular Rhythm: regular Heart Sounds: Present: S1 & S2 - Gastrointestinal General gastrointestinal: Present: soft, non-tender, distended (Moderate ascites) - Neurologic Neurological: oriented to person, strength equal bilaterally - Labs CBC & Chem 7: 11/01/21 07:51 11/01/21 07:51 Labs: Laboratory Results - last 24 hr 10/31/21 10/31/21 10/31/21 04:59 13:45 13:54 WBC RBC Hgb Hct MCV MCH MCHC RDW Plt Count Lymph % (Auto) Burt % (Auto) Eos % (Auto) Baso % (Auto) Lymph # (Auto) Burt # (Auto) Eos # (Auto) Baso # (Auto) Add Manual Diff Complete Total Counted 100 Seg Neutrophils % Seg Neuts % (Manual) 98.0 H Band Neutrophils % 0 Lymphocytes % (Manual) 0 L Reactive Lymphs % (Man) 0 Monocytes % (Manual) 2.0 Eosinophils % (Manual) 0 Basophils % (Manual) 0 Metamyelocytes % 0 Myelocytes % 0 Promyelocytes % 0 Blast Cells % 0 Nucleated RBC % 2.0 H Seg Neutrophils # Seg Neutrophils # Man 12.2 H Band Neutrophils # 0.0 Lymphocytes # (Manual) 0.0 L Abs React Lymphs (Man) 0.0 Monocytes # (Manual) 0.2 Eosinophils # (Manual) 0.0 Basophils # (Manual) 0.0 Metamyelocytes # 0.0 Myelocytes # 0.0 Promyelocytes # 0.0 Blast Cells # 0.0 WBC Morphology Not Reportable Hypersegmented Neuts Not Reportable Hyposegmented Neuts Not Reportable Hypogranular Neuts Not Reportable Smudge Cells Not Reportable Toxic Granulation Not Reportable Toxic Vacuolation Not Reportable Dohle Bodies Not Reportable Pelger-Huet Anomaly Not Reportable Osmar Rods Not Reportable Platelet Estimate Consistent w auto Clumped Platelets Not Reportable Plt Clumps, EDTA Not Reportable Large Platelets Not Reportable Giant Platelets Not Reportable Platelet Satelliting Not Reportable Plt Morphology Comment Not Reportable RBC Morphology Not Reportable Dimorphic RBCs Not Reportable Polychromasia Not Reportable Hypochromasia 1+ Poikilocytosis Not Reportable Anisocytosis Not Reportable Microcytosis Not Reportable Macrocytosis Not Reportable Spherocytes Not Reportable Pappenheimer Bodies Not Reportable Sickle Cells Not Reportable Target Cells Not Reportable Tear Drop Cells Not Reportable Ovalocytes Not Reportable Helmet Cells Not Reportable Ramos-[place] Bodies Not Reportable [place] Rings Not Reportable [place] Cells Not Reportable Bite Cells Not Reportable Crenated Cell Not Reportable Elliptocytes Not Reportable Acanthocytes (Spur) Not Reportable Rouleaux Not Reportable Hemoglobin C Crystals Not Reportable Schistocytes Not Reportable Malaria parasites Not Reportable Jerry Bodies Not Reportable Hem Pathologist Commnt No PT INR Sodium 134 L Potassium 3.5 L D Chloride 87.1 L Carbon Dioxide 29 Anion Gap 21 BUN 95 H Creatinine 2.1 H Estimated GFR 40 BUN/Creatinine Ratio 45 Glucose 130 H POC Glucose 148 H Calcium 9.2 Total Bilirubin 7.00 H AST 114 H ALT 66 H Alkaline Phosphatase 84 Ammonia Total Creatine Kinase Total Protein 6.9 Albumin 4.0 Albumin/Globulin Ratio 1.4 10/31/21 11/01/21 11/01/21 13:54 07:51 07:51 WBC 10.3 RBC 5.62 H Hgb 14.6 Hct 46.2 H MCV 82 L MCH 26 L MCHC 32 RDW 17.2 H Plt Count 205 Lymph % (Auto) 4.5 L Burt % (Auto) Social Services Analyst Eos % (Auto) 0.4 Baso % (Auto) 0.5 Lymph # (Auto) 0.5 L Burt # (Auto) 0.6 Eos # (Auto) 0.0 Baso # (Auto) 0.0 Add Manual Diff Total Counted Seg Neutrophils % Social Services Analyst Seg Neuts % (Manual) Band Neutrophils % Lymphocytes % (Manual) Reactive Lymphs % (Man) Monocytes % (Manual) Eosinophils % (Manual) Basophils % (Manual) Metamyelocytes % Myelocytes % Promyelocytes % Blast Cells % Nucleated RBC % Seg Neutrophils # 9.1 H Seg Neutrophils # Man Band Neutrophils # Lymphocytes # (Manual) Abs React Lymphs (Man) Monocytes # (Manual) Eosinophils # (Manual) Basophils # (Manual) Metamyelocytes # Myelocytes # Promyelocytes # Blast Cells # WBC Morphology Hypersegmented Neuts Hyposegmented Neuts Hypogranular Neuts Smudge Cells Toxic Granulation Toxic Vacuolation Dohle Bodies Pelger-Huet Anomaly Osmar Rods Platelet Estimate Clumped Platelets Plt Clumps, EDTA Large Platelets Giant Platelets Platelet Satelliting Plt Morphology Comment RBC Morphology Dimorphic RBCs Polychromasia Hypochromasia Poikilocytosis Anisocytosis Microcytosis Macrocytosis Spherocytes Pappenheimer Bodies Sickle Cells Target Cells Tear Drop Cells Ovalocytes Helmet Cells Ramos-[place] Bodies [place] Rings [place] Cells Bite Cells Crenated Cell Elliptocytes Acanthocytes (Spur) Rouleaux Hemoglobin C Crystals Schistocytes Malaria parasites Jerry Bodies Hem Pathologist Commnt PT 22.7 H INR 1.76 H Sodium Potassium Chloride Carbon Dioxide Anion Gap BUN Creatinine Estimated GFR BUN/Creatinine Ratio Glucose POC Glucose Calcium Total Bilirubin AST ALT Alkaline Phosphatase Ammonia 43.0 Total Creatine Kinase Total Protein Albumin Albumin/Globulin Ratio 11/01/21 07:51 WBC RBC Hgb Hct MCV MCH MCHC RDW Plt Count Lymph % (Auto) Burt % (Auto) Eos % (Auto) Baso % (Auto) Lymph # (Auto) Burt # (Auto) Eos # (Auto) Baso # (Auto) Add Manual Diff Total Counted Seg Neutrophils % Seg Neuts % (Manual) Band Neutrophils % Lymphocytes % (Manual) Reactive Lymphs % (Man) Monocytes % (Manual) Eosinophils % (Manual) Basophils % (Manual) Metamyelocytes % Myelocytes % Promyelocytes % Blast Cells % Nucleated RBC % Seg Neutrophils # Seg Neutrophils # Man Band Neutrophils # Lymphocytes # (Manual) Abs React Lymphs (Man) Monocytes # (Manual) Eosinophils # (Manual) Basophils # (Manual) Metamyelocytes # Myelocytes # Promyelocytes # Blast Cells # WBC Morphology Hypersegmented Neuts Hyposegmented Neuts Hypogranular Neuts Smudge Cells Toxic Granulation Toxic Vacuolation Dohle Bodies Pelger-Huet Anomaly Osmar Rods Platelet Estimate Clumped Platelets Plt Clumps, EDTA Large Platelets Giant Platelets Platelet Satelliting Plt Morphology Comment RBC Morphology Dimorphic RBCs Polychromasia Hypochromasia Poikilocytosis Anisocytosis Microcytosis Macrocytosis Spherocytes Pappenheimer Bodies Sickle Cells Target Cells Tear Drop Cells Ovalocytes Helmet Cells Ramos-[place] Bodies [place] Rings [place] Cells Bite Cells Crenated Cell Elliptocytes Acanthocytes (Spur) Rouleaux Hemoglobin C Crystals Schistocytes Malaria parasites Jerry Bodies Hem Pathologist Commnt PT INR Sodium 137 Potassium 4.8 D Chloride 87.2 L Carbon Dioxide 23 Anion Gap 32 BUN 105 H Creatinine 2.7 H Estimated GFR 30 BUN/Creatinine Ratio 39 Glucose 93 POC Glucose Calcium 9.4 Total Bilirubin 9.60 H AST 100 H ALT 80 H Alkaline Phosphatase 83 Ammonia Total Creatine Kinase 1594 H Total Protein 6.5 Albumin 4.4 Albumin/Globulin Ratio 2.1
--- NOTE | 2021-11-01 13:50 | Progress Note ---
Assessment and Plan Assessment and plan: History of present illness: 51-year-old gentleman, last known well time not explicitly known, presenting with evidence of probable cirrhosis and/or hepatic disease, manifested by hepatomegaly, scleral icterus, and lower extremity swelling. He is afebrile with reassuring vital signs with exception of hypertension. He is moving 4 extremities and protecting his airway. A noncontrast CT scan of the brain is negative for acute findings. Laboratory studies pending. We will administer hydralazine for blood pressure control. In the emergency room patient is found to have BUN of 110 and creatinine 3.1, bicarb 20, sodium 136, total creatinine kinase 1863, ammonia 12.2 total bilirubin 5.80 and proBNP 53415 Contacted nephrology on-call, Dr. Carrillo. Discussed the patient's history, physical, laboratory studies and imaging studies and clinical impression. Recommend trial dose of Lasix, 80 mg. Request urine studies, as well as renal ultrasound. Nephrology will be able to follow in consultation. We also consult GI for evaluation Admitted for hypertensive emergency, alcholic hepatitis, acute kidney injury Hospital Course: 10/31: Albumin infusion noted. Continue lasix mehdi for diuresis. Awaiting interpretation of US liver. When renal function stabilizes, will order CTAP w/ con if ok with nephrology. ECHO pending as well for cardiac eval. Code MET called in afternoon. patient was noted to be in respiratory distress with fluctuating mentation. Noted to be bradycardic in low 40's. Nadalol dc and patient admin glucagon. Will avoid BB the rest of the admission. CXR negative for pulmonary edema or pneumonia. Placed on nasal cannula with subsequent improvement. D/w GI, will start rifaximin, lactulose decreased. 11/01 : D/w GI. mentation improved. OK to start CLD. Renal function worse today, will follow nephro input. ECHO completed, demonstrated reduced EF of 20-25%. Will consult cardiology. 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 - lasix, spironalactone . d/c spironalactone #Acute kidney injury due to vasomotor nephropathy #Hypokalemia - Cr: 4.1 on admission, downtrending now 2.1 - strict I/O - trend renal makers daily - nephrology consulted, currently recommends trial of lasix, renal us and studies ordered - ERP: ordered 40 MEQ K IV and 40 MEQ K PO. #Rhabdomyolysis - trend CK - gentle hydration #Hypertensive emergency (resolved) - blood pressure regimen initiated: norvasc, amlodipine, nadalol, spironalactone, lasix. prn hydralazine and labetalol. #Advance care planning Disease education conducted, care plan discussed, diagnoses discussed, prognosis discussed, patient is full code, patient acknowledges understanding and agree with care plan, +30 minutes. DISPO: Med/surg History Interval history: Remains drowsy but able to converse on encounter. Less confused today. Requiring Nasal cannula as patient will desat on room air. Hospitalist Physical - Physical exam Narrative exam: Physical Exam: VITAL SIGNS: Reviewed. GENERAL: The patient appears normally developed, Vital signs as documented. on 2l NC. HEAD: No signs of head trauma. EYES: Jaundice sclera EARS: Hearing grossly intact. MOUTH: Oropharynx is normal. NECK: No adenopathy, no JVD. CHEST: Chest with clear breath sounds bilaterally. No wheezes, rales, or rhonchi. CARDIAC: Regular rate and rhythm. S1 and S2, without murmurs, gallops, or rubs. VASCULAR: Bilateral lower extremity edema peripheral pulses normal and equal in all extremities. ABDOMEN: Soft, non tender and slightly distended. No rebound or guarding, and no masses palpated. Bowel Sounds normal. MUSCULOSKELETAL: Good range of motion of all major joints. Extremities without clubbing, cyanosis or edema. NEUROLOGIC EXAM: Alert but drowsy and oriented x 4. no focal sensory or strength deficits. PSYCHIATRIC: Mood normal. SKIN: detail exam as documented in skin assessment - Constitutional Vitals: Temp Pulse Resp BP Pulse Ox 98.8 F 55 L 16 133/103 95 11/01/21 04:12 11/01/21 04:12 11/01/21 04:12 11/01/21 10:26 11/01/21 13:24 General appearance: Present: no acute distress, well-nourished Results - Labs CBC & Chem 7: 11/01/21 07:51 11/01/21 07:51 Labs: Laboratory Last Values WBC 10.3 K/mm3 (4.5-11.0) 11/01/21 07:51 RBC 5.62 M/mm3 (3.65-5.03) H 11/01/21 07:51 Hgb 14.6 gm/dl (11.8-15.2) 11/01/21 07:51 Hct 46.2 % (35.5-45.6) H 11/01/21 07:51 MCV 82 fl (84-94) L 11/01/21 07:51 MCH 26 pg (28-32) L 11/01/21 07:51 MCHC 32 % (32-34) 11/01/21 07:51 RDW 17.2 % (13.2-15.2) H 11/01/21 07:51 Plt Count 205 K/mm3 (140-440) 11/01/21 07:51 Lymph % (Auto) 4.5 % (13.4-35.0) L 11/01/21 07:51 Emmet % (Auto) Planning Engineer 11/01/21 07:51 Eos % (Auto) 0.4 % (0.0-4.3) 11/01/21 07:51 Baso % (Auto) 0.5 % (0.0-1.8) 11/01/21 07:51 Lymph # (Auto) 0.5 K/mm3 (1.2-5.4) L 11/01/21 07:51 Emmet # (Auto) 0.6 K/mm3 (0.0-0.8) 11/01/21 07:51 Eos # (Auto) 0.0 K/mm3 (0.0-0.4) 11/01/21 07:51 Baso # (Auto) 0.0 K/mm3 (0.0-0.1) 11/01/21 07:51 Add Manual Diff Complete 10/31/21 04:59 Total Counted 100 10/31/21 04:59 Seg Neutrophils % Planning Engineer 11/01/21 07:51 Seg Neuts % (Manual) 98.0 % (40.0-70.0) H 10/31/21 04:59 Band Neutrophils % 0 % 10/31/21 04:59 Lymphocytes % (Manual) 0 % (13.4-35.0) L 10/31/21 04:59 Reactive Lymphs % (Man) 0 % 10/31/21 04:59 Monocytes % (Manual) 2.0 % (0.0-7.3) 10/31/21 04:59 Eosinophils % (Manual) 0 % (0.0-4.3) 10/31/21 04:59 Basophils % (Manual) 0 % (0.0-1.8) 10/31/21 04:59 Metamyelocytes % 0 % 10/31/21 04:59 Myelocytes % 0 % 10/31/21 04:59 Promyelocytes % 0 % 10/31/21 04:59 Blast Cells % 0 % 10/31/21 04:59 Nucleated RBC % 2.0 % (0.0-0.9) H 10/31/21 04:59 Seg Neutrophils # 9.1 K/mm3 (1.8-7.7) H 11/01/21 07:51 Seg Neutrophils # Man 12.2 K/mm3 (1.8-7.7) H 10/31/21 04:59 Band Neutrophils # 0.0 K/mm3 10/31/21 04:59 Lymphocytes # (Manual) 0.0 K/mm3 (1.2-5.4) L 10/31/21 04:59 Abs React Lymphs (Man) 0.0 K/mm3 10/31/21 04:59 Monocytes # (Manual) 0.2 K/mm3 (0.0-0.8) 10/31/21 04:59 Eosinophils # (Manual) 0.0 K/mm3 (0.0-0.4) 10/31/21 04:59 Basophils # (Manual) 0.0 K/mm3 (0.0-0.1) 10/31/21 04:59 Metamyelocytes # 0.0 K/mm3 10/31/21 04:59 Myelocytes # 0.0 K/mm3 10/31/21 04:59 Promyelocytes # 0.0 K/mm3 10/31/21 04:59 Blast Cells # 0.0 K/mm3 10/31/21 04:59 WBC Morphology Not Reportable 10/31/21 04:59 Hypersegmented Neuts Not Reportable 10/31/21 04:59 Hyposegmented Neuts Not Reportable 10/31/21 04:59 Hypogranular Neuts Not Reportable 10/31/21 04:59 Smudge Cells Not Reportable 10/31/21 04:59 Toxic Granulation Not Reportable 10/31/21 04:59 Toxic Vacuolation Not Reportable 10/31/21 04:59 Dohle Bodies Not Reportable 10/31/21 04:59 Pelger-Huet Anomaly Not Reportable 10/31/21 04:59 Osmar Rods Not Reportable 10/31/21 04:59 Platelet Estimate Consistent w auto 10/31/21 04:59 Clumped Platelets Not Reportable 10/31/21 04:59 Plt Clumps, EDTA Not Reportable 10/31/21 04:59 Large Platelets Not Reportable 10/31/21 04:59 Giant Platelets Not Reportable 10/31/21 04:59 Platelet Satelliting Not Reportable 10/31/21 04:59 Plt Morphology Comment Not Reportable 10/31/21 04:59 RBC Morphology Not Reportable 10/31/21 04:59 Dimorphic RBCs Not Reportable 10/31/21 04:59 Polychromasia Not Reportable 10/31/21 04:59 Hypochromasia 1+ 10/31/21 04:59 Poikilocytosis Not Reportable 10/31/21 04:59 Anisocytosis Not Reportable 10/31/21 04:59 Microcytosis Not Reportable 10/31/21 04:59 Macrocytosis Not Reportable 10/31/21 04:59 Spherocytes Not Reportable 10/31/21 04:59 Pappenheimer Bodies Not Reportable 10/31/21 04:59 Sickle Cells Not Reportable 10/31/21 04:59 Target Cells Not Reportable 10/31/21 04:59 Tear Drop Cells Not Reportable 10/31/21 04:59 Ovalocytes Not Reportable 10/31/21 04:59 Helmet Cells Not Reportable 10/31/21 04:59 [place] Bodies Not Reportable 10/31/21 04:59 [place] Rings Not Reportable 10/31/21 04:59 Bailey Cells Not Reportable 10/31/21 04:59 Bite Cells Not Reportable 10/31/21 04:59 Crenated Cell Not Reportable 10/31/21 04:59 Elliptocytes Not Reportable 10/31/21 04:59 Acanthocytes (Spur) Not Reportable 10/31/21 04:59 Rouleaux Not Reportable 10/31/21 04:59 Hemoglobin C Crystals Not Reportable 10/31/21 04:59 Schistocytes Not Reportable 10/31/21 04:59 Malaria parasites Not Reportable 10/31/21 04:59 Jerry Bodies Not Reportable 10/31/21 04:59 Hem Pathologist Commnt No 10/31/21 04:59 PT 22.7 Sec. (12.2-14.9) H 11/01/21 07:51 INR 1.76 (0.87-1.13) H 11/01/21 07:51 APTT 29.0 Sec. (24.2-36.6) 10/29/21 19:04 Sodium 137 mmol/L (137-145) 11/01/21 07:51 Potassium 4.8 mmol/L (3.6-5.0) D 11/01/21 07:51 Chloride 87.2 mmol/L (98-107) L 11/01/21 07:51 Carbon Dioxide 23 mmol/L (22-30) 11/01/21 07:51 Anion Gap 32 mmol/L 11/01/21 07:51 BUN 105 mg/dL (9-20) H 11/01/21 07:51 Creatinine 2.7 mg/dL (0.8-1.3) H 11/01/21 07:51 Estimated GFR 30 ml/min 11/01/21 07:51 BUN/Creatinine Ratio 39 % 11/01/21 07:51 Glucose 93 mg/dL (75-100) 11/01/21 07:51 POC Glucose 148 mg/dL (70-105) H 10/31/21 13:45 Calcium 9.4 mg/dL (8.4-10.2) 11/01/21 07:51 Total Bilirubin 9.60 mg/dL (0.1-1.2) H 11/01/21 07:51 AST 100 units/L (5-40) H 11/01/21 07:51 ALT 80 units/L (7-56) H 11/01/21 07:51 Alkaline Phosphatase 83 units/L (35-129) 11/01/21 07:51 Ammonia 43.0 umol/L (25-60) 10/31/21 13:54 Total Creatine Kinase 1594 units/L (55-170) H 11/01/21 07:51 NT-Pro-B Natriuret Pep 52871 pg/mL (0-900) H 10/29/21 19:04 Total Protein 6.5 g/dL (6.3-8.2) 11/01/21 07:51 Albumin 4.4 g/dL (3.9-5) 11/01/21 07:51 Albumin/Globulin Ratio 2.1 % 11/01/21 07:51 TSH 2.670 mlU/mL (0.270-4.200) 10/29/21 19:04 PTH Intact 170.9 pg/mL (15-65) H 10/31/21 04:59 Urine Color Straw (Yellow) 10/30/21 00:29 Urine Turbidity Clear (Clear) 10/30/21 00:29 Urine pH 7.0 (5.0-7.0) 10/30/21 00:29 Ur Specific [place] 1.030 (1.003-1.030) 10/30/21 00:29 Urine Protein 100 mg/dl mg/dL (Negative) 10/30/21 00:29 Urine Glucose (UA) Negative mg/dL (Negative) 10/30/21 00:29 Urine Ketones Negative mg/dL (Negative) 10/30/21 00: Urine Blood Negative (Negative) 10/30/21 00: Urine Nitrite Negative (Negative) 10/30/21 00:29 Ur Reducing Substances Not Reportable 10/30/21 00:29 Urine Bilirubin Negative (Negative) 10/30/21 00:29 Urine Ictotest Not Reportable 10/30/21 00: Urine Urobilinogen 0.0 mg/dL (<2.0) 10/30/21 00:29 Ur Leukocyte Esterase 1+ (Negative) 10/30/21 00:29 Urine WBC (Auto) 3.0 /HPF (0.0-6.0) 10/30/21 00:29 Urine RBC (Auto) 5.0 /HPF (0.0-6.0) 10/30/21 00:29 U Epithel Cells (Auto) 1.0 /HPF (0-13.0) 10/30/21 00:29 Hyaline Casts 4 /LPF 10/30/21 00:29 Urine Mucus Few /HPF 10/30/21 00:29 Urine Osmolality 339 Mosm/kg 10/30/21 00:29 Urine Creatinine 36.1 mg/dL (0.1-20.0) H 10/30/21 00:29 Urine Sodium 66 mmol/L 10/30/21 00:29 Salicylates < 0.3 mg/dL (2.8-20.0) L 10/29/21 19:04 Acetaminophen 5.0 ug/mL (10.0-30.0) L 10/29/21 19:04 Plasma/Serum Alcohol < 0.01 % (0-0.07) 10/29/21 19:04 Hepatitis A IgM Ab Non-reactive (NonReactive) 10/29/21 19:04 Hep Bs Antigen Non-reactive (Negative) 10/29/21 19:04 Hep B Core IgM Ab Non-reactive (NonReactive) 10/29/21 19:04 Hepatitis C Antibody Non-reactive (NonReactive) 10/29/21 19:04 Microbiology: Microbiology 10/30/21 00:55 Urine,Clean Catch Urine Culture - Final Wu/IV: Voiding Method Incontinent Active Medications - Current Medications Current Medications: Generic Name Dose Route Start Last Admin Trade Name Freq PRN Reason Stop Dose Admin Acetaminophen 650 mg 11/01/21 12:39 Acetaminophen 325 Mg Tab PO Q6H PRN Pain MILD(1-3)/Fever >100.5/MILTON Albumin Human 25 gm 10/30/21 22:00 11/01/21 05:00 Albumin Human 25% (25 Gm/100 Ml) Inj IV 11/02/21 14:01 25 gm Q8HR CAROL Administration Albuterol 2.5 mg 10/30/21 00:44 Albuterol 2.5 Mg/3 Ml Nebu IH Q3HRT PRN Shortness Of Breath Amlodipine Besylate 5 mg 10/30/21 10:00 11/01/21 10:25 Amlodipine 5 Mg Tab PO 5 mg QDAY CAROL Administration Clonidine HCl 0.1 mg 11/02/21 10:00 Clonidine 0.1 Mg Tab PO DAILY CAROL Furosemide 40 mg 10/30/21 10:00 11/01/21 10:24 Furosemide 40 Mg/4 Ml Inj IV 40 mg QDAY CAROL Administration Hydralazine HCl 10 mg 10/30/21 00:35 10/30/21 23:50 Hydralazine 20 Mg/1 Ml Inj IV 10 mg Q6H PRN Administration htn Dextrose/Lactated Ringer's 1,000 mls @ 75 mls/hr 10/31/21 17:00 11/01/21 05:49 D5lr IV 75 mls/hr DIRECT CAROL Administration Labetalol HCl 10 mg 10/30/21 08:51 10/30/21 09:25 Labetalol 20 Mg/4 Ml Inj IV 10 mg Q4HR PRN Administration sbp>160 Lactulose 20 gm 10/31/21 22:00 11/01/21 10:24 Lactulose 20 Gm/30 Ml Oral Liqd PO 20 gm Q12HR CAROL Administration Lorazepam 2 mg 10/31/21 12:20 Lorazepam 2 Mg/Ml Vial IV Q1H PRN CIWA-Ar 8-15 Lorazepam 4 mg 10/31/21 12:20 Lorazepam 2 Mg/Ml Vial IV Q1H PRN CIWA-Ar 16-25 Multivitamins 1 each 10/31/21 10:00 11/01/21 10:25 Multivitamins ,Therapeutic Tab PO 1 each QDAY CAROL Administration Ondansetron HCl 4 mg 10/30/21 00:44 Ondansetron 4 Mg/2 Ml Inj IV Q8H PRN Nausea And Vomiting Pantoprazole Sodium 40 mg 10/31/21 07:30 11/01/21 10:25 Pantoprazole 40 Mg Tab PO 40 mg QDAC CAROL Administration Potassium Chloride 40 meq 10/31/21 14:00 11/01/21 10:25 Potassium Chloride Er 20 Meq Tab PO 40 meq QDAY CAROL Administration Rifaximin 550 mg 10/31/21 22:00 11/01/21 10:24 Rifaximin 550 Mg Tab PO 550 mg BID CAROL Administration Sodium Chloride 10 ml 10/30/21 10:00 11/01/21 10:26 Sodium Chloride 0.9% 10 Ml Flush Syringe IV 10 ml BID CAROL Administration Sodium Chloride 10 ml 10/30/21 00:44 Sodium Chloride 0.9% 10 Ml Flush Syringe IV PRN PRN LINE FLUSH Spironolactone 50 mg 10/30/21 12:00 11/01/21 10:26 Spironolactone 50 Mg Tab PO 50 mg QDAY CAROL Administration Nutrition/Malnutrition Assess - Dietary Evaluation Nutrition/Malnutrition Findings: Nutrition Notes Start: 10/30/21 09:50 Freq: Status: Active Protocol: Document 10/30/21 09:50 CRISTIANE (Rec: 10/30/21 09:55 CRISTIANE [id number]) Nutrition Notes Need for Assessment generated from: MD Order,Education Current Diagnosis Acute Kidney Injury, Hypertension,Heart Failure Other Pertinent Diagnosis Hypertensive emergency, Uremia , Volume overload, Metabolic encephalopathy Current Diet Cardiac Labs/Tests (10/29/21) BUN 110 Cr 3.1 tBili 5.8 BNP 59676 Pertinent Medications Lasix Height 5 ft 8 in Weight 92.079 kg [place] Body Weight (kg) 70.00 BMI 30.9 Weight change and time frame Current wt likely sec to fluid overload Weight Status Obese Subjective/Other Information RD consulted for diet education. Pt in ED at this time. Pt admitted with BP of 179/140; BP remains elevated this am. Nephrology following ; GI consulted. PMHx includes EtOH dependence and cirrhosis . Burn Absent Trauma Absent Minimum of two criteria No Nutrition Intervention Follow-Up By: 11/04/21 Additional Comments F/U: intakes, BP, renal function, diet education needs
[2021-11-01] MEDS ORDERED: cloNIDine 0.1 MG TAB PO SCH (14:00)
--- NOTE | 2021-11-01 15:07 | Consultation ---
History of Present Illness Consult date: 11/01/21 Requesting physician: BIGG HAN Consult reason: congestive heart failure History of present illness: Patient is a 51-year-old male with a past medical history of EtOH abuse, hypertension, achalasia, cardiomyopathy and medical noncompliance who presents to the ED with a complaint of AMS. History is taken from chart and patient's family members who were at bedside. Per conversation with family patient has not been feeling well for the last several weeks reporting edema and weakness. In the ED patient was found to be in hypertensive emergency, TRUONG, be volume overload. Echocardiogram this admission, patient did have reduced EF of 20 to 25%. Patient's family does report that he was he has an enlarged/weak heart however patient was noncompliant on medications. Of note patient was previously seen in hospital in early September for similar complaints of edema, weakness and high blood pressure. Patient was seen by our practice previously in 2013 however has not followed up as an outpatient. Cardiology consulted for heart failure. Past History Past Medical History: heart failure, hypertension Past Surgical History: No surgical history Social history: smoking, alcohol abuse Family history: cancer, hypertension Medications and Allergies Allergies Allergy/AdvReac Type Severity Reaction Status Date / Time No Known Allergies Allergy Verified 10/29/21 18:23 Active Meds: Active Medications Acetaminophen (Acetaminophen 325 Mg Tab) 650 mg PO Q6H PRN PRN Reason: Pain MILD(1-3)/Fever >100.5/MILTON Albumin Human (Albumin Human 25% (25 Gm/100 Ml) Inj) 25 gm IV Q8HR CAROL Stop: 11/02/21 14:01 Last Admin: 11/01/21 05:00 Dose: 25 gm Albuterol (Albuterol 2.5 Mg/3 Ml Nebu) 2.5 mg IH Q3HRT PRN PRN Reason: Shortness Of Breath Amlodipine Besylate (Amlodipine 5 Mg Tab) 5 mg PO QDAY CAROL Last Admin: 11/01/21 10:25 Dose: 5 mg Clonidine HCl (Clonidine 0.1 Mg Tab) 0.1 mg PO DAILY CAROL Furosemide (Furosemide 40 Mg/4 Ml Inj) 40 mg IV QDAY CAROL Last Admin: 11/01/21 10:24 Dose: 40 mg Hydralazine HCl (Hydralazine 20 Mg/1 Ml Inj) 10 mg IV Q6H PRN PRN Reason: htn Last Admin: 10/30/21 23:50 Dose: 10 mg Hydralazine HCl (Hydralazine 10 Mg Tab) 10 mg PO Q8HR [facility] Dextrose/Lactated Ringer's (D5lr) 1,000 mls @ 75 mls/hr IV DIRECT [facility] Last Admin: 11/01/21 05:49 Dose: 75 mls/hr Labetalol HCl (Labetalol 20 Mg/4 Ml Inj) 10 mg IV Q4HR PRN PRN Reason: sbp>160 Last Admin: 10/30/21 09:25 Dose: 10 mg Lactulose (Lactulose 20 Gm/30 Ml Oral Liqd) 20 gm PO Q12HR [facility] Last Admin: 11/01/21 10:24 Dose: 20 gm Lorazepam (Lorazepam 2 Mg/Ml Vial) 2 mg IV Q1H PRN PRN Reason: CIWA-Ar 8-15 Lorazepam (Lorazepam 2 Mg/Ml Vial) 4 mg IV Q1H PRN PRN Reason: CIWA-Ar 16-25 Multivitamins (Multivitamins ,Therapeutic Tab) 1 each PO QDAY [facility] Last Admin: 11/01/21 10:25 Dose: 1 each Ondansetron HCl (Ondansetron 4 Mg/2 Ml Inj) 4 mg IV Q8H PRN PRN Reason: Nausea And Vomiting Pantoprazole Sodium (Pantoprazole 40 Mg Tab) 40 mg PO QDAC [facility] Last Admin: 11/01/21 10:25 Dose: 40 mg Potassium Chloride (Potassium Chloride Er 20 Meq Tab) 40 meq PO QDAY [facility] Last Admin: 11/01/21 10:25 Dose: 40 meq Rifaximin (Rifaximin 550 Mg Tab) 550 mg PO BID [facility] Last Admin: 11/01/21 10:24 Dose: 550 mg Sodium Chloride (Sodium Chloride 0.9% 10 Ml Flush Syringe) 10 ml IV BID [facility] Last Admin: 11/01/21 10:26 Dose: 10 ml Sodium Chloride (Sodium Chloride 0.9% 10 Ml Flush Syringe) 10 ml IV PRN PRN PRN Reason: LINE FLUSH Spironolactone (Spironolactone 50 Mg Tab) 50 mg PO QDAY [facility] Last Admin: 11/01/21 10:26 Dose: 50 mg Review of Systems ROS unobtainable: due to mental status Physical Examination Vital Signs Temp Pulse Resp BP Pulse Ox 97.4 F L 97 H 18 203/156 95 10/29/21 18:18 10/29/21 18:18 10/29/21 18:18 10/29/21 18:18 10/29/21 18:18 General appearance: other (AMS) HEENT: Positive: Jaundice Neck: Positive: trachea midline, JVD/HJR Cardiac: Positive: Reg Rate and Rhythm Lungs: Positive: Normal Breath Sounds Neuro: Positive: Grossly Intact Abdomen: Positive: Ascites Skin: Positive: Cool Extremities: Present: upper extr. pulses, edema Results 11/01/21 07:51 11/01/21 07:51 Cardiac Enzymes 11/01/21 Range/Units 07:51 AST 100 H (5-40) units/L Coagulation 11/01/21 Range/Units 07:51 PT 22.7 H (12.2-14.9) Sec. INR 1.76 H (0.87-1.13) CBC 11/01/21 Range/Units 07:51 WBC 10.3 (4.5-11.0) K/mm3 RBC 5.62 H (3.65-5.03) M/mm3 Hgb 14.6 (11.8-15.2) gm/dl Hct 46.2 H (35.5-45.6) % Plt Count 205 (140-440) K/mm3 Lymph # (Auto) 0.5 L (1.2-5.4) K/mm3 [place] # (Auto) 0.6 (0.0-0.8) K/mm3 Eos # (Auto) 0.0 (0.0-0.4) K/mm3 Baso # (Auto) 0.0 (0.0-0.1) K/mm3 Comprehensive Metabolic Panel 11/01/21 Range/Units 07:51 Sodium 137 (137-145) mmol/L Potassium 4.8 D (3.6-5.0) mmol/L Chloride 87.2 L (98-107) mmol/L Carbon Dioxide 23 (22-30) mmol/L BUN 105 H (9-20) mg/dL Creatinine 2.7 H (0.8-1.3) mg/dL Glucose 93 (75-100) mg/dL Calcium 9.4 (8.4-10.2) mg/dL AST 100 H (5-40) units/L ALT 80 H (7-56) units/L Alkaline Phosphatase 83 (35-129) units/L Total Protein 6.5 (6.3-8.2) g/dL Albumin 4.4 (3.9-5) g/dL - Imaging and Cardiology Echo: report reviewed EKG interpretations - Telemetry EKG Rhythm: Sinus Tachycardia - EKG Sinus rhythms and dysrhythmias: sinus tachycardia Chamber hypertrophy or enlargement: left ventricular hypertro Assessment and Plan Patient is a 51-year-old male with a past medical history of EtOH abuse, hypertension, achalasia, cardiomyopathy and medical noncompliance who presents to the ED with a complaint of AMS. AMS Hypertensive urgency Acute on chronic HFrEF TRUONG-nephrology following Volume overload Cirrhosis-GI following EtOH abuse Hypokalemia Echo 10/31/2021-EF 20 to 25%. Grade 3 diastolic dysfunction with elevated LV filling pressures. Flattening of interventricular septum suggestive of RV volume overload. RV is dilated. Left atrium mildly dilated. Echo 01/06/2014-EF 40 to 45%. Mild concentric LVH. Left atrium is mildly dilated. Right ventricle systolic function normal Lexiscan MPI 01/07/2014-small mild reversible inferolateral basal defect. Moderate global LV hypokinesis. LVEF 40% Plan: EKG shows sinus ectopic atrial tachycardia LVH with secondary repolarization abnormality. No acute ischemic changes Due to patient's mental status and other comorbidities we will plan for conservative management at this time. Patient here. Volume overloaded on exam with bilateral lower extremity edema. Patient currently on IV Lasix for diuresis. Will defer to nephrology for volume management due to renal No COLBY or ARB due to renal function Per documentation patient was on beta-yenifer and became bradycardic. We will hold beta-yenifer at this time Patient currently not on telemetry. Order placed for tactical response group officer Patient currently on amlodipine, clonidine, and Aldactone Patient is hypertensive will initiate hydralazine 10 mg p.o. 3 times daily Will hold statin due to elevated liver enzymes Patient appears to have several different MRNs Patient on CIWA protocol Patient seen in conjunction with Dr. Perez who agrees with plan of care - Patient Problems (1) Acute on chronic HFrEF (heart failure with reduced ejection fraction) Current Visit: Yes Status: Acute (2) Hypertensive urgency Current Visit: Yes Status: Acute (3) Volume overload Current Visit: Yes Status: Acute (4) Renal insufficiency Current Visit: Yes Status: Acute (5) Uremia Current Visit: Yes Status: Acute (6) Elevated CK Current Visit: Yes Status: Acute (7) Altered mental status Current Visit: Yes Status: Acute (8) Alcoholic cirrhosis of liver with ascites Current Visit: Yes Status: Acute
--- NOTE | 2021-11-01 15:54 | Event Note ---
Date: 11/01/21 Worsening encephalopathy. Monique still arousable when calling his name or sternal rub. Able to identify family at bedside. Concerned about worsening of liver function. Discussed with both biological sons about DNR/AND. They stated they would like everything done for their father and would like for him to remain a full code.
[2021-11-01] MEDS: hydrALAZINE 10 MG TAB PO SCH ×2 (16:31→22:43)
--- NOTE | 2021-11-01 20:56 | Event Note ---
Date: 11/01/21 Patient found to have increased work of breathing. Patient upgraded to ICU. Critical care team consulted. Patient will be treated with noninvasive positive pressure ventilation and supportive care at this time.
[2021-11-01] MEDS: LORazepam 2 MG/ML VIAL IV PRN (22:44)
[2021-11-02] MEDS: LORazepam 2 MG/ML VIAL IV PRN (01:10)
[2021-11-02] MEDS: ALBUMIN HUMAN 25% (25 GM/100 ML) INJ IV SCH ×2 (06:25→14:06)
[2021-11-02] MEDS: hydrALAZINE 10 MG TAB PO SCH (06:26)
[2021-11-02 07:30] LABS: Hematocrit 42.6 % (35.5-45.6); Hemoglobin 13.7 gm/dl (11.8-15.2); Mean Corpuscular HGB Conc 32 % (32-34); Mean Corpuscular Volume 81 fl (84-94); Platelet Count 178 K/mm3 (140-440); Red Blood Count 5.24 M/mm3 (3.65-5.03); Red Cell Distribution Width 17.7 % (13.2-15.2)
[2021-11-02 07:49] LABS: Calcium 9.2 mg/dL (8.4-10.2)
--- NOTE | 2021-11-02 08:45 | Consultation ---
History of Present Illness Consult date: 11/02/21 Requesting physician: RAJANI MO Reason for consult: other (Acute encephalopathy, apneic episodes, TRUONG) History of present illness: This is a 51-year-old male with known past medical history of probable cirrhosis and/or hepatic disease, manifested by hepatomegaly, scleral icterus, and lower extremity swelling admitted for hypertensive emergency, alcoholic hepatitis, and acute kidney injury Transferred to ICU for worsening apnea requiring BIPAP, worsening encephalopathy. Critical care consult was placed. Patient seen and examined, currently on BIPAP, riding set rate. Unresponsive- groans to sternal rub. He was apparently extremely agitated overnight, received 4mg IV Lorazepam at about 2am. Past History Past Medical History: heart failure, hypertension Past Surgical History: No surgical history Social history: smoking, alcohol abuse Family history: cancer, hypertension Medications and Allergies Allergies Allergy/AdvReac Type Severity Reaction Status Date / Time No Known Allergies Allergy Unverified 11/02/21 15:49 Home Medications Medication Instructions Recorded Confirmed Last Taken Type Furosemide [Lasix] 20 mg PO QDAY #30 tablet 09/22/21 Unknown Rx Lisinopril [Zestril] 5 mg PO DAILY #30 09/22/21 Unknown Rx Metoprolol [Lopressor TAB] 25 mg PO BID #60 tablet 09/22/21 Unknown Rx Pantoprazole [Protonix TAB] 20 mg PO QDAY #30 tablet.dr 09/22/21 Unknown Rx Potassium Chloride [K-Dur] 10 meq PO QDAY #30 09/22/21 Unknown Rx Simvastatin 10 mg PO QHS #30 09/22/21 Unknown Rx Active Meds: Active Medications Acetaminophen (Acetaminophen 325 Mg Tab) 650 mg PO Q6H PRN PRN Reason: Pain MILD(1-3)/Fever >100.5/[place] Albumin Human (Albumin Human 25% (25 Gm/100 Ml) Inj) 25 gm IV Q8HR ACROL Stop: 11/02/21 14:01 Last Admin: 11/02/21 06:25 Dose: 25 gm Albuterol (Albuterol 2.5 Mg/3 Ml Nebu) 2.5 mg IH Q3HRT PRN PRN Reason: Shortness Of Breath Amlodipine Besylate (Amlodipine 5 Mg Tab) 5 mg PO QDAY [facility] Last Admin: 11/01/21 10:25 Dose: 5 mg Clonidine HCl (Clonidine 0.1 Mg Tab) 0.1 mg PO DAILY [facility] Hydralazine HCl (Hydralazine 20 Mg/1 Ml Inj) 10 mg IV Q6H PRN PRN Reason: htn Last Admin: 10/30/21 23:50 Dose: 10 mg Hydralazine HCl (Hydralazine 10 Mg Tab) 10 mg PO Q8HR [facility] Last Admin: 11/02/21 06:26 Dose: Not Given Dextrose/Lactated Ringer's (D5lr) 1,000 mls @ 75 mls/hr IV DIRECT [facility] Last Admin: 11/01/21 22:42 Dose: 75 mls/hr Labetalol HCl (Labetalol 20 Mg/4 Ml Inj) 10 mg IV Q4HR PRN PRN Reason: sbp>160 Last Admin: 10/30/21 09:25 Dose: 10 mg Lactulose (Lactulose 20 Gm/30 Ml Oral Liqd) 20 gm PO Q12HR [facility] Last Admin: 11/01/21 22:43 Dose: 20 gm Lorazepam (Lorazepam 2 Mg/Ml Vial) 2 mg IV Q1H PRN PRN Reason: Reynaldo 11-01 Last Admin: 11/02/21 01:10 Dose: 2 mg Lorazepam (Lorazepam 2 Mg/Ml Vial) 4 mg IV Q1H PRN PRN Reason: Reynaldo Last Admin: 11/02/21 02:35 Dose: 4 mg Multivitamins (Multivitamins ,Therapeutic Tab) 1 each PO QDAY [facility] Last Admin: 11/01/21 10:25 Dose: 1 each Ondansetron HCl (Ondansetron 4 Mg/2 Ml Inj) 4 mg IV Q8H PRN PRN Reason: Nausea And Vomiting Pantoprazole Sodium (Pantoprazole 40 Mg Tab) 40 mg PO QDAC [facility] Last Admin: 11/01/21 10:25 Dose: 40 mg Rifaximin (Rifaximin 550 Mg Tab) 550 mg PO BID [facility] Last Admin: 11/01/21 22:43 Dose: 550 mg Sodium Chloride (Sodium Chloride 0.9% 10 Ml Flush Syringe) 10 ml IV BID [facility] Last Admin: 11/01/21 22:43 Dose: Not Given Sodium Chloride (Sodium Chloride 0.9% 10 Ml Flush Syringe) 10 ml IV PRN PRN PRN Reason: LINE FLUSH Spironolactone (Spironolactone 50 Mg Tab) 50 mg PO QDAY CAROL Last Admin: 11/01/21 10:26 Dose: 50 mg Review of Systems ROS unobtainable: due to mental status Physical Examination Vital signs: Vital Signs Temp Pulse Resp BP Pulse Ox 97.4 F L 97 H 18 203/156 95 10/29/21 18:18 10/29/21 18:18 10/29/21 18:18 10/29/21 18:18 10/29/21 18:18 General appearance: other (minimally rsponisve, FFM on BIPAP) Neck: supple, no lymphadenopathy Effort: mildly labored Ascultation: Bilateral: diminished breath sounds (Poor AE) Cardiovascular: regular rate and rhythm, other (S1,S2) Gastrointestinal: soft, non-tender, other (Distended, Wu catheter in pace -no urine in urine bag) Extremities: no cyanosis, edema (lower extremity) unable to assess Results - Laboratory Findings CBC and BMP: 11/02/21 07:00 11/02/21 Unknown PT/INR, D-dimer PT 22.7 Sec. (12.2-14.9) H 11/01/21 07:51 INR 1.76 (0.87-1.13) H 11/01/21 07:51 Abnormal lab findings: Abnormal Labs 10/29/21 10/29/21 10/29/21 19:04 19:04 19:04 WBC 11.7 H RBC 6.09 H Hgb 16.1 H Hct 49.9 H MCV 82 L MCH 26 L MCHC RDW 17.5 H Lymph % (Auto) 8.0 L Lymph # (Auto) 0.9 L Seg Neutrophils % 86.1 H Seg Neuts % (Manual) Lymphocytes % (Manual) Nucleated RBC % Seg Neutrophils # 10.0 H Seg Neutrophils # Man Lymphocytes # (Manual) PT 19.6 H INR 1.47 H Sodium Potassium Chloride Carbon Dioxide BUN Creatinine Glucose POC Glucose Total Bilirubin AST ALT Ammonia Total Creatine Kinase NT-Pro-B Natriuret Pep 34759 H Albumin PTH Intact Urine Creatinine Salicylates Acetaminophen 10/29/21 10/29/21 10/29/21 19:04 19:04 19:04 WBC RBC Hgb Hct MCV MCH MCHC RDW Lymph % (Auto) Lymph # (Auto) Seg Neutrophils % Seg Neuts % (Manual) Lymphocytes % (Manual) Nucleated RBC % Seg Neutrophils # Seg Neutrophils # Man Lymphocytes # (Manual) PT INR Sodium 136 L Potassium Chloride 86.3 L Carbon Dioxide 20 L BUN 110 H Creatinine 3.1 H Glucose 119 H POC Glucose Total Bilirubin 5.80 H AST 62 H ALT Ammonia 12.0 L Total Creatine Kinase 1863 H NT-Pro-B Natriuret Pep Albumin 3.4 L PTH Intact Urine Creatinine Salicylates < 0.3 L Acetaminophen 10/29/21 10/30/21 10/30/21 19:04 00:29 15:51 WBC RBC Hgb Hct MCV MCH MCHC RDW Lymph % (Auto) Lymph # (Auto) Seg Neutrophils % Seg Neuts % (Manual) Lymphocytes % (Manual) Nucleated RBC % Seg Neutrophils # Seg Neutrophils # Man Lymphocytes # (Manual) PT INR Sodium Potassium Chloride Carbon Dioxide BUN Creatinine 2.4 H Glucose POC Glucose Total Bilirubin AST ALT Ammonia Total Creatine Kinase NT-Pro-B Natriuret Pep Albumin PTH Intact Urine Creatinine 36.1 H Salicylates Acetaminophen 5.0 L 10/31/21 10/31/21 10/31/21 04:59 04:59 04:59 WBC 12.4 H RBC 5.53 H Hgb Hct MCV 81 L MCH 26 L MCHC 31 L RDW 17.1 H Lymph % (Auto) Lymph # (Auto) Seg Neutrophils % Seg Neuts % (Manual) 98.0 H Lymphocytes % (Manual) 0 L Nucleated RBC % 2.0 H Seg Neutrophils # Seg Neutrophils # Man 12.2 H Lymphocytes # (Manual) 0.0 L PT INR Sodium Potassium 2.6 L* D Chloride 90.0 L Carbon Dioxide BUN 105 H Creatinine 2.1 H Glucose 110 H POC Glucose Total Bilirubin 6.40 H AST 99 H ALT Ammonia Total Creatine Kinase NT-Pro-B Natriuret Pep Albumin 3.8 L PTH Intact 170.9 H Urine Creatinine Salicylates Acetaminophen 10/31/21 10/31/21 11/01/21 13:45 13:54 07:51 WBC RBC 5.62 H Hgb Hct 46.2 H MCV 82 L MCH 26 L MCHC RDW 17.2 H Lymph % (Auto) 4.5 L Lymph # (Auto) 0.5 L Seg Neutrophils % Seg Neuts % (Manual) Lymphocytes % (Manual) Nucleated RBC % Seg Neutrophils # 9.1 H Seg Neutrophils # Man Lymphocytes # (Manual) PT INR Sodium 134 L Potassium 3.5 L D Chloride 87.1 L Carbon Dioxide BUN 95 H Creatinine 2.1 H Glucose 130 H POC Glucose 148 H Total Bilirubin 7.00 H AST 114 H ALT 66 H Ammonia Total Creatine Kinase NT-Pro-B Natriuret Pep Albumin PTH Intact Urine Creatinine Salicylates Acetaminophen 11/01/21 11/01/21 11/02/21 07:51 07:51 00:12 WBC RBC Hgb Hct MCV MCH MCHC RDW Lymph % (Auto) Lymph # (Auto) Seg Neutrophils % Seg Neuts % (Manual) Lymphocytes % (Manual) Nucleated RBC % Seg Neutrophils # Seg Neutrophils # Man Lymphocytes # (Manual) PT 22.7 H INR 1.76 H Sodium Potassium Chloride 87.2 L Carbon Dioxide BUN 105 H Creatinine 2.7 H Glucose POC Glucose 131 H Total Bilirubin 9.60 H AST 100 H ALT 80 H Ammonia Total Creatine Kinase 1594 H NT-Pro-B Natriuret Pep Albumin PTH Intact Urine Creatinine Salicylates Acetaminophen 11/02/21 11/02/21 11/02/21 06:08 07:00 07:00 WBC 13.4 H RBC 5.24 H Hgb Hct MCV 81 L MCH 26 L MCHC RDW 17.7 H Lymph % (Auto) Lymph # (Auto) Seg Neutrophils % Seg Neuts % (Manual) Lymphocytes % (Manual) Nucleated RBC % Seg Neutrophils # Seg Neutrophils # Man Lymphocytes # (Manual) PT INR Sodium Potassium 5.8 H D Chloride 91.9 L Carbon Dioxide BUN 122 H Creatinine 2.6 H Glucose 136 H POC Glucose 160 H Total Bilirubin AST ALT Ammonia Total Creatine Kinase NT-Pro-B Natriuret Pep Albumin PTH Intact Urine Creatinine Salicylates Acetaminophen - Diagnostic Findings Chest x-ray: image reviewed (Cardiomegaly, increased interstial markings) Additional studies: Echo 10/31/2021-EF 20 to 25%. Grade 3 diastolic dysfunction with elevated LV filling pressures. Flattening of interventricular septum suggestive of RV volume overload. RV is dilated. Left atrium mildly dilated. Echo 01/06/2014-EF 40 to 45%. Mild concentric LVH. Left atrium is mildly dilated. Right ventricle systolic function normal Lexiscan MPI 01/07/2014-small mild reversible inferolateral basal defect. Moderate global LV hypokinesis. 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 Hyperkalemia with worsening renal failure Alcoholic hepatitis Alcohol Abuse disorder Possible Hepatorenal Syndrome Acute kidney injury due to vasomotor nephropathy Hypertensive emergency (resolved) Cardiomyopathy EF 20- 25%, possible alcohol induced -Get ABG -Titrate supplemental oxygen to keep SpO2 90-92% -Continue with NIPPV for now -Place small bowel feeding tube fro oral medications and nutritional support -Aspiration precautions -Medical management of hyperkalemia-Kayexalate, insulin-glucose, follow up BMP at 4pm -Nutrition consult for tube feeding -Avoid nephrotoxins, dose all medications for GFR/CrCL -Renal service managing fluids and diuretic therapy at this time -Stop benzodiazepines, use Pheonobarbital for alcohol withdrawal management -[facility] protocol -VTE prophylaxis -Maintain sleep-wake cycle -Continue all therapies for hepatic encephalopathy-Lactulose titrate to 2-3 BMs daily, Rifixamin -Stop Spironolactone -Continue with Wu catheter fro strict intake and output monitoring -Trend CBC -Supportive transfusions as clinically indicated to keep HgB >7g/dL -Monitor hemodynamics closely-with RV overload, he may benefit from ionotrpic support with diuretic therapy. Will discuss with cardiology CONDITION: CRITICAL PROGNOSIS: GUARDED CODE STATUS: FULL CODE Critical care time 35 minutes
[2021-11-02] MEDS ORDERED: SODIUM BICARB 8.4% 50 MEQ/50 ML SYRINGE IV SCH (09:00)
[2021-11-02] MEDS ORDERED: INSULIN REGULAR, HUMAN 100 UNITS/1 ML IV SCH (09:00)
[2021-11-02] MEDS ORDERED: DEXTROSE 50% IN WATER (25GM) 50 ML SYRINGE IV SCH (09:00)
[2021-11-02 09:12] LABS: ABG Base Excess 0.4 mmol/L (-2.0-3.0); ABG HCO3 26.1 mmol/L (20.0-26.0); ABG Methemoglobin 0.5 % (0.0-1.5); ABG Oxygen Saturation 98.4 % (95.0-99.0); ABG PCO2 46.2 mm Hg; ABG PH 7.37 pH Units (7.350-7.450); ABG PO2 126.7 mm Hg (80.0-90.0)
[2021-11-02] MEDS: SPIRONOLACTONE 50 MG TAB PO SCH (09:42)
--- NOTE | 2021-11-02 09:46 | XRay Report ---
ABDOMEN 1 VIEW 11/02/2021 8:28 AM INDICATION / CLINICAL INFORMATION: tube placement. COMPARISON: None available. FINDINGS: TUBES / LINES: Nasogastric tube tip projects the level the body of the stomach. BOWEL GAS PATTERN: No significant abnormality. FREE AIR / EXTRALUMINAL GAS: None. ADDITIONAL FINDINGS: No significant additional findings. IMPRESSION: 1. Esophagogastric tube in expected position. Signer Name: Jose Carlos Schmitz MD Signed: 11/02/2021 9:42 AM Workstation Name: [id number]
[2021-11-02] MEDS: amLODIPine 5 MG TAB FEEDTUBE SCH (09:52)
[2021-11-02] MEDS: cloNIDine 0.1 MG TAB FEEDTUBE SCH (09:52)
[2021-11-02] MEDS: LACTULOSE 20 GM/30 ML ORAL LIQD FEEDTUBE SCH ×2 (09:52→22:55)
[2021-11-02] MEDS: FUROSEMIDE 40 MG/4 ML INJ IV SCH ×2 (09:53→17:17)
[2021-11-02] MEDS ORDERED: LANSOPRAZOLE 30 MG SOLUTAB FEEDTUBE SCH (10:00)
[2021-11-02] MEDS ORDERED: SPIRONOLACTONE 50 MG TAB FEEDTUBE SCH (10:00)
[2021-11-02] MEDS ORDERED: cloNIDine 0.1 MG TAB PO SCH (10:00)
[2021-11-02] MEDS: PANTOPRAZOLE 40 MG TAB PO SCH (10:05)
[2021-11-02] MEDS: MULTIVITAMIN / MINERAL ORAL LIQUID 15 ML PO SCH (10:14)
[2021-11-02] MEDS: RIFAXIMIN 550 MG TAB FEEDTUBE SCH ×2 (10:49→22:56)
[2021-11-02] MEDS ORDERED: SODIUM POLYSTYRENE 15 GM/60 ML ORAL LIQD PO SCH (12:00)
--- NOTE | 2021-11-02 12:29 | Progress Note ---
<NUNU HOLLEY - Last Filed: 11/02/21 21:27> Assessment and Plan Assessment and plan: This is a 51-year-old male with known past medical history of probable cirrhosis and/or hepatic disease, manifested by hepatomegaly, scleral icterus, and lower extremity swelling admitted for hypertensive emergency, alcholic hepatitis, and acute kidney injury Hospital Course to Date: 10/31: Albumin infusion noted. Continue lasix mehdi for diuresis. Awaiting interpretation of US liver. When renal function stabilizes, will order CTAP w/ con if ok with nephrology. ECHO pending as well for cardiac eval. Code MET called in afternoon. patient was noted to be in respiratory distress with fluctuating mentation. Noted to be bradycardic in low 40's. Nadalol dc and patient admin glucagon. Will avoid BB the rest of the admission. CXR negative for pulmonary edema or pneumonia. Placed on nasal cannula with subsequent improvement. D/w GI, will start rifaximin, lactulose decreased. 11/01 : D/w GI. mentation improved. OK to start CLD. Renal function worse today, will follow nephro input. ECHO completed, demonstrated reduced EF of 20-25%. Will consult cardiology. 11/01: Patient transferred to ICU overnight due to worsening respiratory status and periods of apnea now on continuous Bipap. This am CXR with mild CHF, renal function continue to worsen. On IV Lasix per Nephro. Patient remains encephalopatic, remains on CIWA protocol and on lactulose BID, repeat ammonia level in the am. 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 - lasix, spironalactone . d/c spironalactone #Acute Respiratory Distress #Apneic Episodes - Went into respirtaory distress overnight requiring continuous Bipap - Peroids of apnea observed - Remains on Bipap this am - CXR reveal mild CHF, now on IV Lasix per Nephro - This am ABG noted - Continue O2 supplement for now and wean as tolerated - Continue SPO2 monitor for SPO2 goal above 92% #Congestive Heart Failure with Reduced EF #Cardiomyopathy #Hypertensive emergency (resolved) - Recent ECHO EF 20-25% - Cardiology consulted, appreciate recommendations - IV Lasix added per Nephro - blood pressure regimen initiated: norvasc, amlodipine, nadalol, prn hydralazine and labetalol. - Continue blood pressure monitor per protocol - Maintain MAP above 65 - Strict I&Os and daily weight #Acute kidney injury due to vasomotor nephropathy #Hypokalemia - Cr: 4.1 on admission - trend renal makers daily - nephrology consulted, currently recommends trial of lasix, renal us and studies ordered - Strict intake and output - Avoid nephrotoxic medications; Renally dose medications - Monitor and replace electrolytes as needed #Acute Hepatic Encephalopathy #Possible ETOH Withdrawal #S/p Witnessed Fall - extensive alcohol use history, 12 pack per day - Worsen mental status probable DTs - On CIWA protocol - CT head with no acute findings - On Lactulose BID, ammonia wnr- repeat in the am - Fall precaution - Maintenance of sleep-wake cycle #Rhabdomyolysis - trend CK - gentle hydration #GI/DVT Prophylaxis - PPI- Lansoprazole - SCDs to bilateral lower extremities while in bed #Advance care planning - Disease education, care plan, diagnoses, and prognosis discussed with patient's son. Patient is a FULL code. Patient's family acknowledged understanding and agree with care plan The high probability of a clinically significant, sudden or life threatening deterioration of the [multiple] system(s) required my full and direct attention, intervention and personal management. The aggregate critical care time was [60] minutes. This time is in addition to time spent performing reported procedures but includes the following: [x] Data Review and interpretation [x] Patient assessment and monitoring of vital signs [x] Documentation [x] Medication orders and management Disposition Plan: ICU Total Time Spent with Patient (Minutes): 60 History Interval history: Patient seen and examined at the bedside. Patient remains encephalopathic, only arousable with tactile stimuli. Upgraded to ICU overnight due to worsen respiratory status and episodes of apnea requiring continuous Bipap. Patient also had a witnessed fall overnight, no obvious injury noted. SB, HR in the 50- 60s noted on the monitor, VSS. Hospitalist Physical - Constitutional Vitals: Temp Pulse Resp BP Pulse Ox 96.8 F L 60 17 141/111 100 11/02/21 12:06 11/02/21 11:00 11/02/21 11:00 11/02/21 11:00 11/02/21 11:00 General appearance: Present: no acute distress, other (Lethargic, only arousable to tactile stimuli) - EENT Eyes: Present: PERRL - Neck Neck: Present: normal ROM - Respiratory Respiratory effort: normal Respiratory: bilateral: wheezing - Cardiovascular Rhythm: regular Heart Sounds: Present: S1 & S2 - Extremities Extremities: no ischemia, pulses intact, pulses symmetrical Extremity abnormal: edema - Peripheral Assessment Generalized Edema Type: Pitting Edema Degree: 2+ Capillary Refill: < 3 seconds Peripheral Pulses: within normal limits - Abdominal General gastrointestinal: soft, non-distended, normal bowel sounds - Integumentary Integumentary: Present: warm, dry, jaundice - Psychiatric Psychiatric: other (Lethargic, only arousable to tactile stimuli) - Neurologic Neurologic: moves all extremities, other (Lethargic, only arousable to tactile stimuli) - Allied Health Allied health notes reviewed: nursing, case management Results - Labs CBC & Chem 7: 11/02/21 07:00 11/02/21 Unknown Labs: Laboratory Last Values WBC 13.4 K/mm3 (4.5-11.0) H 11/02/21 07:00 RBC 5.24 M/mm3 (3.65-5.03) H 11/02/21 07:00 Hgb 13.7 gm/dl (11.8-15.2) 11/02/21 07:00 Hct 42.6 % (35.5-45.6) 11/02/21 07:00 MCV 81 fl (84-94) L 11/02/21 07:00 MCH 26 pg (28-32) L 11/02/21 07:00 MCHC 32 % (32-34) 11/02/21 07:00 RDW 17.7 % (13.2-15.2) H 11/02/21 07:00 Plt Count 178 K/mm3 (140-440) 11/02/21 07:00 Lymph % (Auto) 4.5 % (13.4-35.0) L 11/01/21 07:51 [place] % (Auto) General Partner 11/01/21 07:51 Eos % (Auto) 0.4 % (0.0-4.3) 11/01/21 07:51 Baso % (Auto) 0.5 % (0.0-1.8) 11/01/21 07:51 Lymph # (Auto) 0.5 K/mm3 (1.2-5.4) L 11/01/21 07:51 [place] # (Auto) 0.6 K/mm3 (0.0-0.8) 11/01/21 07:51 Eos # (Auto) 0.0 K/mm3 (0.0-0.4) 11/01/21 07:51 Baso # (Auto) 0.0 K/mm3 (0.0-0.1) 11/01/21 07:51 Add Manual Diff Complete 10/31/21 04:59 Total Counted 100 10/31/21 04:59 Seg Neutrophils % General Partner 11/01/21 07:51 Seg Neuts % (Manual) 98.0 % (40.0-70.0) H 10/31/21 04:59 Band Neutrophils % 0 % 10/31/21 04:59 Lymphocytes % (Manual) 0 % (13.4-35.0) L 10/31/21 04:59 Reactive Lymphs % (Man) 0 % 10/31/21 04:59 Monocytes % (Manual) 2.0 % (0.0-7.3) 10/31/21 04:59 Eosinophils % (Manual) 0 % (0.0-4.3) 10/31/21 04:59 Basophils % (Manual) 0 % (0.0-1.8) 10/31/21 04:59 Metamyelocytes % 0 % 10/31/21 04:59 Myelocytes % 0 % 10/31/21 04:59 Promyelocytes % 0 % 10/31/21 04:59 Blast Cells % 0 % 10/31/21 04:59 Nucleated RBC % 2.0 % (0.0-0.9) H 10/31/21 04:59 Seg Neutrophils # 9.1 K/mm3 (1.8-7.7) H 11/01/21 07:51 Seg Neutrophils # Man 12.2 K/mm3 (1.8-7.7) H 10/31/21 04:59 Band Neutrophils # 0.0 K/mm3 10/31/21 04:59 Lymphocytes # (Manual) 0.0 K/mm3 (1.2-5.4) L 10/31/21 04:59 Abs React Lymphs (Man) 0.0 K/mm3 10/31/21 04:59 Monocytes # (Manual) 0.2 K/mm3 (0.0-0.8) 10/31/21 04:59 Eosinophils # (Manual) 0.0 K/mm3 (0.0-0.4) 10/31/21 04:59 Basophils # (Manual) 0.0 K/mm3 (0.0-0.1) 10/31/21 04:59 Metamyelocytes # 0.0 K/mm3 10/31/21 04:59 Myelocytes # 0.0 K/mm3 10/31/21 04:59 Promyelocytes # 0.0 K/mm3 10/31/21 04:59 Blast Cells # 0.0 K/mm3 10/31/21 04:59 WBC Morphology Not Reportable 10/31/21 04:59 Hypersegmented Neuts Not Reportable 10/31/21 04:59 Hyposegmented Neuts Not Reportable 10/31/21 04:59 Hypogranular Neuts Not Reportable 10/31/21 04:59 Smudge Cells Not Reportable 10/31/21 04:59 Toxic Granulation Not Reportable 10/31/21 04:59 Toxic Vacuolation Not Reportable 10/31/21 04:59 Dohle Bodies Not Reportable 10/31/21 04:59 Pelger-Huet Anomaly Not Reportable 10/31/21 04:59 Osmar Rods Not Reportable 10/31/21 04:59 Platelet Estimate Consistent w auto 10/31/21 04:59 Clumped Platelets Not Reportable 10/31/21 04:59 Plt Clumps, EDTA Not Reportable 10/31/21 04:59 Large Platelets Not Reportable 10/31/21 04:59 Giant Platelets Not Reportable 10/31/21 04:59 Platelet Satelliting Not Reportable 10/31/21 04:59 Plt Morphology Comment Not Reportable 10/31/21 04:59 RBC Morphology Not Reportable 10/31/21 04:59 Dimorphic RBCs Not Reportable 10/31/21 04:59 Polychromasia Not Reportable 10/31/21 04:59 Hypochromasia 1+ 10/31/21 04:59 Poikilocytosis Not Reportable 10/31/21 04:59 Anisocytosis Not Reportable 10/31/21 04:59 Microcytosis Not Reportable 10/31/21 04:59 Macrocytosis Not Reportable 10/31/21 04:59 Spherocytes Not Reportable 10/31/21 04:59 Pappenheimer Bodies Not Reportable 10/31/21 04:59 Sickle Cells Not Reportable 10/31/21 04:59 Target Cells Not Reportable 10/31/21 04:59 Tear Drop Cells Not Reportable 10/31/21 04:59 Ovalocytes Not Reportable 10/31/21 04:59 Helmet Cells Not Reportable 10/31/21 04:59 Ramos-Haugan Bodies Not Reportable 10/31/21 04:59 Shaniko Rings Not Reportable 10/31/21 04:59 [place] Cells Not Reportable 10/31/21 04:59 Bite Cells Not Reportable 10/31/21 04:59 Crenated Cell Not Reportable 10/31/21 04:59 Elliptocytes Not Reportable 10/31/21 04:59 Acanthocytes (Spur) Not Reportable 10/31/21 04:59 Rouleaux Not Reportable 10/31/21 04:59 Hemoglobin C Crystals Not Reportable 10/31/21 04:59 Schistocytes Not Reportable 10/31/21 04:59 Malaria parasites Not Reportable 10/31/21 04:59 Jerry Bodies Not Reportable 10/31/21 04:59 Hem Pathologist Commnt No 10/31/21 04:59 PT 22.7 Sec. (12.2-14.9) H 11/01/21 07:51 INR 1.76 (0.87-1.13) H 11/01/21 07:51 APTT 29.0 Sec. (24.2-36.6) 10/29/21 19:04 ABG pH 7.370 pH Units (7.350-7.450) 11/02/21 08:54 ABG pCO2 46.2 mm Hg 11/02/21 08:54 ABG pO2 126.7 mm Hg (80.0-90.0) H 11/02/21 08:54 ABG HCO3 26.1 mmol/L (20.0-26.0) H 11/02/21 08:54 ABG O2 Saturation 98.4 % (95.0-99.0) 11/02/21 08:54 ABG O2 Content 19.0 (0.0-44) 11/02/21 08:54 ABG Base Excess 0.4 mmol/L (-2.0-3.0) 11/02/21 08:54 ABG Hemoglobin 14.0 gm/dl (14.0-18.0) 11/02/21 08:54 ABG Carboxyhemoglobin 1.8 % (0.0-5.0) 11/02/21 08:54 ABG Methemoglobin 0.5 % (0.0-1.5) 11/02/21 08:54 Oxyhemoglobin 96.1 % (95.0-99.0) 11/02/21 08:54 FiO2 40 % 11/02/21 08:54 Sodium 137 mmol/L (137-145) 11/02/21 07:00 Potassium 5.8 mmol/L (3.6-5.0) H D 11/02/21 07:00 Chloride 91.9 mmol/L (98-107) L 11/02/21 07:00 Carbon Dioxide 24 mmol/L (22-30) 11/02/21 07:00 Anion Gap 27 mmol/L 11/02/21 07:00 BUN 122 mg/dL (9-20) H 11/02/21 07:00 Creatinine 2.6 mg/dL (0.8-1.3) H 11/02/21 07:00 Estimated GFR 31 ml/min 11/02/21 07:00 BUN/Creatinine Ratio 47 % 11/02/21 07:00 Glucose 136 mg/dL (75-100) H 11/02/21 07:00 POC Glucose 160 mg/dL (70-105) H 11/02/21 06:08 Calcium 9.2 mg/dL (8.4-10.2) 11/02/21 07:00 Total Bilirubin 9.60 mg/dL (0.1-1.2) H 11/01/21 07:51 AST 100 units/L (5-40) H 11/01/21 07:51 ALT 80 units/L (7-56) H 11/01/21 07:51 Alkaline Phosphatase 83 units/L (35-129) 11/01/21 07:51 Ammonia 43.0 umol/L (25-60) 10/31/21 13:54 Total Creatine Kinase 1594 units/L (55-170) H 11/01/21 07:51 NT-Pro-B Natriuret Pep 91696 pg/mL (0-900) H 10/29/21 19:04 Total Protein 6.5 g/dL (6.3-8.2) 11/01/21 07:51 Albumin 4.4 g/dL (3.9-5) 11/01/21 07:51 Albumin/Globulin Ratio 2.1 % 11/01/21 07:51 TSH 2.670 mlU/mL (0.270-4.200) 10/29/21 19:04 PTH Intact 170.9 pg/mL (15-65) H 10/31/21 04:59 Urine Color Straw (Yellow) 10/30/21 00:29 Urine Turbidity Clear (Clear) 10/30/21 00:29 Urine pH 7.0 (5.0-7.0) 10/30/21 00:29 Ur Specific [place] 1.030 (1.003-1.030) 10/30/21 00:29 Urine Protein 100 mg/dl mg/dL (Negative) 10/30/21 00:29 Urine Glucose (UA) Negative mg/dL (Negative) 10/30/21 00:29 Urine Ketones Negative mg/dL (Negative) 10/30/21 00:29 Urine Blood Negative (Negative) 10/30/21 00: Urine Nitrite Negative (Negative) 10/30/21 00:29 Ur Reducing Substances Not Reportable 10/30/21 00:29 Urine Bilirubin Negative (Negative) 10/30/21 00:29 Urine Ictotest Not Reportable 10/30/21 00:29 Urine Urobilinogen 0.0 mg/dL (<2.0) 10/30/21 00:29 Ur Leukocyte Esterase 1+ (Negative) 10/30/21 00:29 Urine WBC (Auto) 3.0 /HPF (0.0-6.0) 10/30/21 00:29 Urine RBC (Auto) 5.0 /HPF (0.0-6.0) 10/30/21 00:29 U Epithel Cells (Auto) 1.0 /HPF (0-13.0) 10/30/21 00:29 Hyaline Casts 4 /LPF 10/30/21 00:29 Urine Mucus Few /HPF 10/30/21 00:29 Urine Osmolality 339 Mosm/kg 10/30/21 00:29 Urine Creatinine 36.1 mg/dL (0.1-20.0) H 10/30/21 00:29 Urine Sodium 66 mmol/L 10/30/21 00:29 Salicylates < 0.3 mg/dL (2.8-20.0) L 10/29/21 19:04 Acetaminophen 5.0 ug/mL (10.0-30.0) L 10/29/21 19:04 Plasma/Serum Alcohol < 0.01 % (0-0.07) 10/29/21 19:04 Hepatitis A IgM Ab Non-reactive (NonReactive) 10/29/21 19:04 Hep Bs Antigen Non-reactive (Negative) 10/29/21 19:04 Hep B Core IgM Ab Non-reactive (NonReactive) 10/29/21 19:04 Hepatitis C Antibody Non-reactive (NonReactive) 10/29/21 19:04 Microbiology: Microbiology 10/30/21 00:55 Urine,Clean Catch Urine Culture - Final Wu/IV: Voiding Method Indwelling Catheter Active Medications - Current Medications Current Medications: Generic Name Dose Route Start Last Admin Trade Name Freq PRN Reason Stop Dose Admin Acetaminophen 650 mg 11/01/21 12:39 Acetaminophen 325 Mg Tab PO Q6H PRN Pain MILD(1-3)/Fever >100.5/MILTON Albumin Human 25 gm 10/30/21 22:00 11/02/21 06:25 Albumin Human 25% (25 Gm/100 Ml) Inj IV 11/02/21 14:01 25 gm Q8HR CAROL Administration Albuterol 2.5 mg 10/30/21 00:44 Albuterol 2.5 Mg/3 Ml Nebu IH Q3HRT PRN Shortness Of Breath Amlodipine Besylate 5 mg 11/02/21 10:00 11/02/21 09:52 Amlodipine 5 Mg Tab FEEDTUBE 5 mg QDAY CAROL Administration Clonidine HCl 0.1 mg 11/02/21 10:00 11/02/21 09:52 Clonidine 0.1 Mg Tab FEEDTUBE 0.1 mg DAILY CAROL Administration Dextrose 50 ml 11/02/21 09:00 11/02/21 09:42 Dextrose 50% In Water (25gm) 50 Ml Syringe IV 11/02/21 13:00 50 ml ONCE@0900 CAROL Administration Furosemide 40 mg 11/02/21 10:00 11/02/21 09:53 Furosemide 40 Mg/4 Ml Inj IV 40 mg 0600,1800 CAROL Administration Hydralazine HCl 10 mg 10/30/21 00:35 10/30/21 23:50 Hydralazine 20 Mg/1 Ml Inj IV 10 mg Q6H PRN Administration SBP >/=170; DBP >/=110 Hydralazine HCl 10 mg 11/02/21 14:00 Hydralazine 10 Mg Tab FEEDTUBE Q8HR CAROL Dextrose/Lactated Ringer's 1,000 mls @ 75 mls/hr 10/31/21 17:00 11/01/21 22:42 D5lr IV 75 mls/hr DIRECT CAROL Administration Insulin Human Regular 5 units 11/02/21 09:00 11/02/21 09:41 Insulin Regular, Human 100 Units/1 Ml IV 11/02/21 13:00 5 units ONCE@0900 CAROL Administration Labetalol HCl 10 mg 10/30/21 08:51 10/30/21 09:25 Labetalol 20 Mg/4 Ml Inj IV 10 mg Q4HR PRN Administration sbp>160 Lactulose 20 gm 11/02/21 10:00 11/02/21 09:52 Lactulose 20 Gm/30 Ml Oral Liqd FEEDTUBE 20 gm Q12HR CAROL Administration Lansoprazole 30 mg 11/02/21 10:00 11/02/21 10:14 Lansoprazole 30 Mg Solutab FEEDTUBE 30 mg QDAY CAROL Administration Lorazepam 2 mg 10/31/21 12:20 11/02/21 01:10 Lorazepam 2 Mg/Ml Vial IV 2 mg Q1H PRN Administration JUVENAL-Joe 8-15 Lorazepam 4 mg 10/31/21 12:20 11/02/21 02:35 Lorazepam 2 Mg/Ml Vial IV 4 mg Q1H PRN Administration JUVENAL-Joe 16-25 Ondansetron HCl 4 mg 10/30/21 00:44 Ondansetron 4 Mg/2 Ml Inj IV Q8H PRN Nausea And Vomiting Rifaximin 550 mg 11/02/21 10:00 11/02/21 10:49 Rifaximin 550 Mg Tab FEEDTUBE 550 mg BID CAROL Administration Sodium Bicarbonate 50 meq 11/02/21 09:00 11/02/21 09:42 Sodium Bicarb 8.4% 50 Meq/50 Ml Syringe IV 11/02/21 13:00 50 meq ONCE@0900 CAROL Administration Sodium Chloride 10 ml 10/30/21 10:00 11/02/21 09:42 Sodium Chloride 0.9% 10 Ml Flush Syringe IV 10 ml BID CAROL Administration Sodium Chloride 10 ml 10/30/21 00:44 Sodium Chloride 0.9% 10 Ml Flush Syringe IV PRN PRN LINE FLUSH Sodium Polystyrene Sulfonate 30 gm 11/02/21 12:00 Sodium Polystyrene 15 Gm/60 Ml Oral Liqd PO 11/02/21 16:00 ONCE@1200 CAROL Spironolactone 50 mg 11/02/21 10:00 11/02/21 09:53 Spironolactone 50 Mg Tab FEEDTUBE Not Given QDAY CAROL Nutrition/Malnutrition Assess - Dietary Evaluation Nutrition/Malnutrition Findings: Nutrition Notes Start: 10/30/21 09:50 Freq: Status: Active Protocol: Document 10/30/21 09:50 CRISTIANE (Rec: 10/30/21 09:55 CRISTIANE [id number]) Nutrition Notes Need for Assessment generated from: MD Order,Education Current Diagnosis Acute Kidney Injury, Hypertension,Heart Failure Other Pertinent Diagnosis Hypertensive emergency, Uremia , Volume overload, Metabolic encephalopathy Current Diet Cardiac Labs/Tests (10/29/21) BUN 110 Cr 3.1 tBili 5.8 BNP 71595 Pertinent Medications Lasix Height 5 ft 8 in Weight 92.079 kg [place] Body Weight (kg) 70.00 BMI 30.9 Weight change and time frame Current wt likely sec to fluid overload Weight Status Obese Subjective/Other Information RD consulted for diet education. Pt in ED at this time. Pt admitted with BP of 179/140; BP remains elevated this am. Nephrology following ; GI consulted. PMHx includes EtOH dependence and cirrhosis . Burn Absent Trauma Absent Minimum of two criteria No Nutrition Intervention Follow-Up By: 11/04/21 Additional Comments F/U: intakes, BP, renal function, diet education needs <OKEH,ALTAF E - Last Filed: 11/03/21 07:42> Assessment and Plan Assessment and plan: I saw and evaluated the patient. I agree with the findings and the plan of care as documented in the Nurse Practitioner's~note, with the following corrections and additions. Hospitalist Physical - Constitutional Vitals: Temp Pulse Resp BP Pulse Ox 96.6 F L 59 L 16 155/128 97 11/03/21 04:00 11/03/21 07:00 11/03/21 07:00 11/03/21 07:00 11/03/21 07:00 Results - Labs CBC & Chem 7: 11/03/21 04:39 11/02/21 Unknown Labs: Laboratory Last Values WBC 16.1 K/mm3 (4.5-11.0) H 11/03/21 04:39 RBC 5.36 M/mm3 (3.65-5.03) H 11/03/21 04:39 Hgb 13.6 gm/dl (11.8-15.2) 11/03/21 04:39 Hct 43.3 % (35.5-45.6) 11/03/21 04:39 MCV 81 fl (84-94) L 11/03/21 04:39 MCH 26 pg (28-32) L 11/03/21 04:39 MCHC 32 % (32-34) 11/03/21 04:39 RDW 17.2 % (13.2-15.2) H 11/03/21 04:39 Plt Count 156 K/mm3 (140-440) 11/03/21 04:39 Lymph % (Auto) 4.5 % (13.4-35.0) L 11/01/21 07:51 [place] % (Auto) General Partner 11/01/21 07:51 Eos % (Auto) 0.4 % (0.0-4.3) 11/01/21 07:51 Baso % (Auto) 0.5 % (0.0-1.8) 11/01/21 07:51 Lymph # (Auto) 0.5 K/mm3 (1.2-5.4) L 11/01/21 07:51 [place] # (Auto) 0.6 K/mm3 (0.0-0.8) 11/01/21 07:51 Eos # (Auto) 0.0 K/mm3 (0.0-0.4) 11/01/21 07:51 Baso # (Auto) 0.0 K/mm3 (0.0-0.1) 11/01/21 07:51 Add Manual Diff Complete 10/31/21 04:59 Total Counted 100 10/31/21 04:59 Seg Neutrophils % General Partner 11/01/21 07:51 Seg Neuts % (Manual) 98.0 % (40.0-70.0) H 10/31/21 04:59 Band Neutrophils % 0 % 10/31/21 04:59 Lymphocytes % (Manual) 0 % (13.4-35.0) L 10/31/21 04:59 Reactive Lymphs % (Man) 0 % 10/31/21 04:59 Monocytes % (Manual) 2.0 % (0.0-7.3) 10/31/21 04:59 Eosinophils % (Manual) 0 % (0.0-4.3) 10/31/21 04:59 Basophils % (Manual) 0 % (0.0-1.8) 10/31/21 04:59 Metamyelocytes % 0 % 10/31/21 04:59 Myelocytes % 0 % 10/31/21 04:59 Promyelocytes % 0 % 10/31/21 04:59 Blast Cells % 0 % 10/31/21 04:59 Nucleated RBC % 2.0 % (0.0-0.9) H 10/31/21 04:59 Seg Neutrophils # 9.1 K/mm3 (1.8-7.7) H 11/01/21 07:51 Seg Neutrophils # Man 12.2 K/mm3 (1.8-7.7) H 10/31/21 04:59 Band Neutrophils # 0.0 K/mm3 10/31/21 04:59 Lymphocytes # (Manual) 0.0 K/mm3 (1.2-5.4) L 10/31/21 04:59 Abs React Lymphs (Man) 0.0 K/mm3 10/31/21 04:59 Monocytes # (Manual) 0.2 K/mm3 (0.0-0.8) 10/31/21 04:59 Eosinophils # (Manual) 0.0 K/mm3 (0.0-0.4) 10/31/21 04:59 Basophils # (Manual) 0.0 K/mm3 (0.0-0.1) 10/31/21 04:59 Metamyelocytes # 0.0 K/mm3 10/31/21 04:59 Myelocytes # 0.0 K/mm3 10/31/21 04:59 Promyelocytes # 0.0 K/mm3 10/31/21 04:59 Blast Cells # 0.0 K/mm3 10/31/21 04:59 WBC Morphology Not Reportable 10/31/21 04:59 Hypersegmented Neuts Not Reportable 10/31/21 04:59 Hyposegmented Neuts Not Reportable 10/31/21 04:59 Hypogranular Neuts Not Reportable 10/31/21 04:59 Smudge Cells Not Reportable 10/31/21 04:59 Toxic Granulation Not Reportable 10/31/21 04:59 Toxic Vacuolation Not Reportable 10/31/21 04:59 Dohle Bodies Not Reportable 10/31/21 04:59 Pelger-Huet Anomaly Not Reportable 10/31/21 04:59 Osmar Rods Not Reportable 10/31/21 04:59 Platelet Estimate Consistent w auto 10/31/21 04:59 Clumped Platelets Not Reportable 10/31/21 04:59 Plt Clumps, EDTA Not Reportable 10/31/21 04:59 Large Platelets Not Reportable 10/31/21 04:59 Giant Platelets Not Reportable 10/31/21 04:59 Platelet Satelliting Not Reportable 10/31/21 04:59 Plt Morphology Comment Not Reportable 10/31/21 04:59 RBC Morphology Not Reportable 10/31/21 04:59 Dimorphic RBCs Not Reportable 10/31/21 04:59 Polychromasia Not Reportable 10/31/21 04:59 Hypochromasia 1+ 10/31/21 04:59 Poikilocytosis Not Reportable 10/31/21 04:59 Anisocytosis Not Reportable 10/31/21 04:59 Microcytosis Not Reportable 10/31/21 04:59 Macrocytosis Not Reportable 10/31/21 04:59 Spherocytes Not Reportable 10/31/21 04:59 Pappenheimer Bodies Not Reportable 10/31/21 04:59 Sickle Cells Not Reportable 10/31/21 04:59 Target Cells Not Reportable 10/31/21 04:59 Tear Drop Cells Not Reportable 10/31/21 04:59 Ovalocytes Not Reportable 10/31/21 04:59 Helmet Cells Not Reportable 10/31/21 04:59 Ramos-Haugan Bodies Not Reportable 10/31/21 04:59 Shaniko Rings Not Reportable 10/31/21 04:59 [place] Cells Not Reportable 10/31/21 04:59 Bite Cells Not Reportable 10/31/21 04:59 Crenated Cell Not Reportable 10/31/21 04:59 Elliptocytes Not Reportable 10/31/21 04:59 Acanthocytes (Spur) Not Reportable 10/31/21 04:59 Rouleaux Not Reportable 10/31/21 04:59 Hemoglobin C Crystals Not Reportable 10/31/21 04:59 Schistocytes Not Reportable 10/31/21 04:59 Malaria parasites Not Reportable 10/31/21 04:59 Jerry Bodies Not Reportable 10/31/21 04:59 Hem Pathologist Commnt No 10/31/21 04:59 PT 21.9 Sec. (12.2-14.9) H 11/03/21 04:39 INR 1.68 (0.87-1.13) H 11/03/21 04:39 APTT 29.0 Sec. (24.2-36.6) 10/29/21 19:04 ABG pH 7.489 pH Units (7.350-7.450) H 11/03/21 03:09 ABG pCO2 38.6 mm Hg 11/03/21 03:09 ABG pO2 131.9 mm Hg (80.0-90.0) H 11/03/21 03:09 ABG HCO3 28.7 mmol/L (20.0-26.0) H 11/03/21 03:09 ABG O2 Saturation 98.7 % (95.0-99.0) 11/03/21 03:09 ABG O2 Content 19.1 (0.0-44) 11/03/21 03:09 ABG Base Excess 5.1 mmol/L (-2.0-3.0) H 11/03/21 03:09 ABG Hemoglobin 14.0 gm/dl (14.0-18.0) 11/03/21 03:09 ABG Carboxyhemoglobin 1.8 % (0.0-5.0) 11/03/21 03:09 ABG Methemoglobin 0.5 % (0.0-1.5) 11/03/21 03:09 Oxyhemoglobin 96.5 % (95.0-99.0) 11/03/21 03:09 FiO2 40 % 11/03/21 03:09 Sodium 140 mmol/L (137-145) 11/02/21 Unknown Potassium 4.3 mmol/L (3.6-5.0) D 11/02/21 Unknown Chloride 93.0 mmol/L (98-107) L 11/02/21 Unknown Carbon Dioxide 27 mmol/L (22-30) 11/02/21 Unknown Anion Gap 24 mmol/L 11/02/21 Unknown BUN 125 mg/dL (9-20) H 11/02/21 Unknown Creatinine 3.2 mg/dL (0.8-1.3) H 11/02/21 Unknown Estimated GFR 25 ml/min 11/02/21 Unknown BUN/Creatinine Ratio 39 % 11/02/21 Unknown Glucose 135 mg/dL (75-100) H 11/02/21 Unknown POC Glucose 163 mg/dL (70-105) H 11/03/21 06:04 Calcium 9.5 mg/dL (8.4-10.2) 11/02/21 Unknown Magnesium 2.90 mg/dL (1.7-2.3) H 11/02/21 Unknown Total Bilirubin 8.80 mg/dL (0.1-1.2) H 11/03/21 04:39 Direct Bilirubin 4.9 mg/dL (0-0.2) H 11/03/21 04:39 Indirect Bilirubin 3.9 mg/dL 11/03/21 04:39 AST 115 units/L (5-40) H 11/03/21 04:39 ALT 138 units/L (7-56) H 11/03/21 04:39 Alkaline Phosphatase 88 units/L (35-129) 11/03/21 04:39 Ammonia 62.0 umol/L (25-60) H 11/03/21 04:39 Total Creatine Kinase 1594 units/L (55-170) H 11/01/21 07:51 NT-Pro-B Natriuret Pep 60801 pg/mL (0-900) H 10/29/21 19:04 Total Protein 6.2 g/dL (6.3-8.2) L 11/03/21 04:39 Albumin 4.3 g/dL (3.9-5) 11/03/21 04:39 Albumin/Globulin Ratio 2.3 % 11/03/21 04:39 TSH 2.670 mlU/mL (0.270-4.200) 10/29/21 19:04 PTH Intact 170.9 pg/mL (15-65) H 10/31/21 04:59 Urine Color Straw (Yellow) 10/30/21 00:29 Urine Turbidity Clear (Clear) 10/30/21 00: Urine pH 7.0 (5.0-7.0) 10/30/21 00:29 Ur Specific [place] 1.030 (1.003-1.030) 10/30/21 00: Urine Protein 100 mg/dl mg/dL (Negative) 10/30/21 00: Urine Glucose (UA) Negative mg/dL (Negative) 10/30/21 00: Urine Ketones Negative mg/dL (Negative) 10/30/21 00: Urine Blood Negative (Negative) 10/30/21 00: Urine Nitrite Negative (Negative) 10/30/21 00:29 Ur Reducing Substances Not Reportable 10/30/21 00: Urine Bilirubin Negative (Negative) 10/30/21 00: Urine Ictotest Not Reportable 10/30/21 00: Urine Urobilinogen 0.0 mg/dL (<2.0) 10/30/21 00:29 Ur Leukocyte Esterase 1+ (Negative) 10/30/21 00:29 Urine WBC (Auto) 3.0 /HPF (0.0-6.0) 10/30/21 00: Urine RBC (Auto) 5.0 /HPF (0.0-6.0) 10/30/21 00:29 U Epithel Cells (Auto) 1.0 /HPF (0-13.0) 10/30/21 00:29 Hyaline Casts 4 /LPF 10/30/21 00: Urine Mucus Few /HPF 10/30/21 00:29 Urine Osmolality 339 Mosm/kg 10/30/21 00:29 Urine Creatinine 36.1 mg/dL (0.1-20.0) H 10/30/21 00:29 Urine Sodium 66 mmol/L 10/30/21 00:29 Salicylates < 0.3 mg/dL (2.8-20.0) L 10/29/21 19:04 Acetaminophen 5.0 ug/mL (10.0-30.0) L 10/29/21 19:04 Plasma/Serum Alcohol < 0.01 % (0-0.07) 10/29/21 19:04 Hepatitis A IgM Ab Non-reactive (NonReactive) 10/29/21 19:04 Hep Bs Antigen Non-reactive (Negative) 10/29/21 19:04 Hep B Core IgM Ab Non-reactive (NonReactive) 10/29/21 19:04 Hepatitis C Antibody Non-reactive (NonReactive) 10/29/21 19:04 Wu/IV: Voiding Method Indwelling Catheter Active Medications - Current Medications Current Medications: Generic Name Dose Route Start Last Admin Trade Name Freq PRN Reason Stop Dose Admin Acetaminophen 650 mg 11/01/21 12:39 Acetaminophen 325 Mg Tab PO Q6H PRN Pain MILD(1-3)/Fever >100.5/MILTON Albuterol 2.5 mg 10/30/21 00:44 Albuterol 2.5 Mg/3 Ml Nebu IH Q3HRT PRN Shortness Of Breath Amlodipine Besylate 5 mg 11/02/21 10:00 11/02/21 09:52 Amlodipine 5 Mg Tab FEEDTUBE 5 mg QDAY CAROL Administration Clonidine HCl 0.1 mg 11/02/21 10:00 11/02/21 09:52 Clonidine 0.1 Mg Tab FEEDTUBE 0.1 mg DAILY CAROL Administration Furosemide 40 mg 11/02/21 10:00 11/03/21 06:51 Furosemide 40 Mg/4 Ml Inj IV 40 mg 0600,1800 CAROL Administration Hydralazine HCl 10 mg 10/30/21 00:35 11/02/21 16:04 Hydralazine 20 Mg/1 Ml Inj IV 10 mg Q6H PRN Administration SBP >/=170; DBP >/=110 Hydralazine HCl 10 mg 11/02/21 14:00 11/03/21 06:52 Hydralazine 10 Mg Tab FEEDTUBE 10 mg Q8HR CAROL Administration Dextrose 1,000 mls @ 42 mls/hr 11/02/21 18:00 11/02/21 18:36 D5w IV 42 mls/hr DIRECT CAROL Administration Labetalol HCl 10 mg 10/30/21 08:51 10/30/21 09:25 Labetalol 20 Mg/4 Ml Inj IV 10 mg Q4HR PRN Administration sbp>160 Lactulose 20 gm 11/02/21 10:00 11/02/21 22:55 Lactulose 20 Gm/30 Ml Oral Liqd FEEDTUBE 20 gm Q12HR CAROL Administration Lansoprazole 30 mg 11/03/21 10:00 Lansoprazole 30 Mg Solutab FEEDTUBE QDAY CAROL Naloxone HCl 0.4 mg 11/02/21 15:35 11/02/21 16:00 Naloxone 0.4 Mg/1 Ml Inj IV 0.4 mg ONCE CAROL Administration Ondansetron HCl 4 mg 10/30/21 00:44 Ondansetron 4 Mg/2 Ml Inj IV Q8H PRN Nausea And Vomiting Phenobarbital 130 mg 11/02/21 16:31 Phenobarbital 130 Mg/Ml Vial IV Q15M PRN Agitation Rifaximin 550 mg 11/02/21 10:00 11/02/21 22:56 Rifaximin 550 Mg Tab FEEDTUBE 550 mg BID CAROL Administration Sodium Chloride 10 ml 10/30/21 10:00 11/02/21 22:55 Sodium Chloride 0.9% 10 Ml Flush Syringe IV Not Given BID CAROL Sodium Chloride 10 ml 10/30/21 00:44 Sodium Chloride 0.9% 10 Ml Flush Syringe IV PRN PRN LINE FLUSH Nutrition/Malnutrition Assess - Dietary Evaluation Nutrition/Malnutrition Findings: Nutrition Notes Start: 10/30/21 09:50 Freq: Status: Active Protocol: Document 10/30/21 09:50 CRISTIANE (Rec: 10/30/21 09:55 CRISTIANE [id number]) Nutrition Notes Need for Assessment generated from: Order,Education Current Diagnosis Acute Kidney Injury, Hypertension,Heart Failure Other Pertinent Diagnosis Hypertensive emergency, Uremia , Volume overload, Metabolic encephalopathy Current Diet Cardiac Labs/Tests (10/29/21) BUN 110 Cr 3.1 tBili 5.8 BNP 39234 Pertinent Medications Lasix Height 5 ft 8 in Weight 92.079 kg [place] Body Weight (kg) 70.00 BMI 30.9 Weight change and time frame Current wt likely sec to fluid overload Weight Status Obese Subjective/Other Information RD consulted for diet education. Pt in ED at this time. Pt admitted with BP of 179/140; BP remains elevated this am. Nephrology following ; GI consulted. PMHx includes EtOH dependence and cirrhosis . Burn Absent Trauma Absent Minimum of two criteria No Nutrition Intervention Follow-Up By: 11/04/21 Additional Comments F/U: intakes, BP, renal function, diet education needs
--- NOTE | 2021-11-02 13:51 | XRay Report ---
CHEST 1 VIEW 11/02/2021 12:13 PM INDICATION / CLINICAL INFORMATION: Respiratory Distress. COMPARISON: 10/31/2021 FINDINGS: SUPPORT DEVICES: Nasogastric tube is followed to the proximal stomach although its distal tip is not included. HEART / MEDIASTINUM: Stable cardiomegaly LUNGS / PLEURA: Mild central pulmonary venous congestion and small left pleural effusion are suspecte d. No pneumothorax. ADDITIONAL FINDINGS: No significant additional findings. IMPRESSION: 1. Mild CHF Signer Name: Vu Hawthorne Jr, MD Signed: 11/02/2021 1:46 PM Workstation Name: [id number]
--- NOTE | 2021-11-02 14:28 | Progress Note ---
Assessment and Plan Patient is a 51-year-old male with a past medical history of EtOH abuse, hypertension, achalasia, cardiomyopathy and medical noncompliance who presents to the ED with a complaint of AMS. AMS Acute respiratory failure Hypertensive urgency Acute on chronic HFrEF TRUONG-nephrology following Volume overload Cirrhosis-GI following EtOH abuse Hypokalemia Echo 10/31/2021-EF 20 to 25%. Grade 3 diastolic dysfunction with elevated LV filling pressures. Flattening of interventricular septum suggestive of RV volume overload. RV is dilated. Left atrium mildly dilated. Echo 01/06/2014-EF 40 to 45%. Mild concentric LVH. Left atrium is mildly dilated. Right ventricle systolic function normal Lexiscan MPI 01/07/2014-small mild reversible inferolateral basal defect. Moderate global LV hypokinesis. LVEF 40% Plan: Due to patient's mental status and other comorbidities we will plan for conservative management at this time. Volume overloaded on exam with bilateral lower extremity edema. Patient currently on IV Lasix for diuresis. Will defer to nephrology for volume management due to renal No COLBY or ARB due to renal function Per documentation patient was on beta-yenifer and became bradycardic. Furthermore patient heart rate in upper 50s to low 60s will hold beta-yenifer at this time Patient currently on amlodipine, clonidine, and Aldactone, hydralazine 10 mg p.o. 3 times daily Will hold statin due to elevated liver enzymes Patient appears to have several different MRNs Patient on CIWA protocol Patient seen in conjunction with Dr. Perez who agrees with plan of care 30 minutes critical care time spent in care coordination of patient - Patient Problems (1) Acute on chronic HFrEF (heart failure with reduced ejection fraction) Current Visit: Yes Status: Acute (2) Hypertensive urgency Current Visit: Yes Status: Acute (3) Volume overload Current Visit: Yes Status: Acute (4) Renal insufficiency Current Visit: Yes Status: Acute (5) Uremia Current Visit: Yes Status: Acute (6) Elevated CK Current Visit: Yes Status: Acute (7) Altered mental status Current Visit: Yes Status: Acute (8) Alcoholic cirrhosis of liver with ascites Current Visit: Yes Status: Acute Subjective Date of service: 11/02/21 Principal diagnosis: Cirrhosis Interval history: Patient transferred to ICU due to worsening mental and respiratory status Sinus bradycardia to sinus rhythm high 50s to 60s on monitor Objective Vital Signs Temp Pulse Resp BP Pulse Ox 08/16/22 13:00 59 L 23 141/120 99 11/02/21 12:06 96.8 F L 11/02/21 12:00 57 L 15 144/112 11/02/21 11:00 60 17 141/111 100 11/02/21 10:00 57 L 14 150/114 99 11/02/21 09:52 59 L 150/114 11/02/21 09:00 59 L 14 146/112 11/02/21 08:24 100 11/02/21 08:00 58 L 19 141/108 11/02/21 07:25 97.3 F L 11/02/21 07:00 60 15 138/105 99 11/02/21 06:00 60 14 139/113 100 11/02/21 05:00 60 16 140/115 99 11/02/21 04:42 60 33 H 130/107 100 11/02/21 04:00 98.2 F 60 13 135/103 100 11/02/21 03:10 100 11/02/21 03:00 61 13 120/98 99 11/02/21 02:00 61 18 120/90 100 11/02/21 01:00 63 16 149/114 100 11/02/21 00:00 98.1 F 63 16 129/102 11/01/21 23:50 65 11 L 130/93 100 11/01/21 23:40 65 17 130/93 100 11/01/21 23:37 65 34 H 130/93 100 11/01/21 23:30 65 12 130/93 100 11/01/21 23:20 65 17 122/96 100 11/01/21 23:10 65 15 122/96 100 11/01/21 23:00 64 16 122/96 100 11/01/21 22:50 65 17 157/123 100 11/01/21 22:40 65 21 157/123 100 11/01/21 22:30 63 20 157/123 11/01/21 22:20 63 18 147/123 99 11/01/21 22:10 66 24 147/123 97 11/01/21 22:00 63 14 147/123 97 11/01/21 21:50 63 18 138/115 93 11/01/21 21:40 66 20 138/115 100 11/01/21 21:30 62 21 138/115 95 11/01/21 21:20 64 19 146/113 100 11/01/21 21:10 63 18 146/113 93 11/01/21 21:00 65 21 147/112 99 11/01/21 20:58 62 17 87 11/01/21 20:40 64 18 146/113 95 11/01/21 20:30 64 18 146/113 100 11/01/21 20:20 65 23 146/113 99 11/01/21 20:15 146/113 98 11/01/21 18:46 113/61 11/01/21 16:31 135/103 11/01/21 15:15 94 - Physical Examination General: Other (Altered mental status currently on BiPAP) HEENT: Positive: Jaundice Neck: Positive: trachea midline, JVD/HJR Cardiac: Positive: Reg Rate and Rhythm Lungs: Positive: Rhonchi Neuro: Positive: Grossly Intact Abdomen: Positive: Ascites Skin: Positive: Cool Extremities: Present: upper extr. pulses, edema - Labs and Meds CBC 11/02/21 Range/Units 07:00 WBC 13.4 H (4.5-11.0) K/mm3 RBC 5.24 H (3.65-5.03) M/mm3 Hgb 13.7 (11.8-15.2) gm/dl Hct 42.6 (35.5-45.6) % Plt Count 178 (140-440) K/mm3 Comprehensive Metabolic Panel 11/02/21 Range/Units 07:00 Sodium 137 (137-145) mmol/L Potassium 5.8 H D (3.6-5.0) mmol/L Chloride 91.9 L (98-107) mmol/L Carbon Dioxide 24 (22-30) mmol/L BUN 122 H (9-20) mg/dL Creatinine 2.6 H (0.8-1.3) mg/dL Glucose 136 H (75-100) mg/dL Calcium 9.2 (8.4-10.2) mg/dL - Imaging and Cardiology Echo: report reviewed - Telemetry EKG Rhythm: Sinus Rhythm - EKG Sinus rhythms and dysrhythmias: sinus rhythm Chamber hypertrophy or enlargement: left ventricular hypertro
[2021-11-02] MEDS: hydrALAZINE 10 MG TAB FEEDTUBE SCH ×2 (14:57→22:55)
[2021-11-02] MEDS ORDERED: NALOXONE 0.4 MG/1 ML INJ IV SCH (15:35)
[2021-11-02] MEDS: hydrALAZINE 20 MG/1 ML INJ IV PRN (16:04)
[2021-11-02] MEDS ORDERED: PHENobarbitaL 130 MG/ML VIAL IV PRN (16:31)
[2021-11-02] MEDS ORDERED: DEXTROSE 5% IN WATER 1,000 ML IV SCH (18:00)
--- NOTE | 2021-11-02 18:28 | Gastroenterology Progress Note ---
Assessment and Plan - Patient Problems (1) Altered mental status Current Visit: Yes Status: Acute Plan to address problem: - Likely combo of asterixis and DTs as well as severe uremia. - Will continue xifaxan and wean off lactulose given TRUONG and diarrhea (convert lactulose to QD on Monday). - Continue CIWA and clear liquids given somnolence. - Stop all narcotics and benzos. (2) TRUONG (acute kidney injury) Current Visit: Yes Status: Acute Plan to address problem: - Per renal service. - His baseline Cr appears to be 1.9 on labs from September (different MRN). (3) Alcoholic cirrhosis of liver with ascites Current Visit: Yes Status: Acute Plan to address problem: - Use diuretics with caution as per Renal, as I suspect developing HRS, but may also have TRUONG from his CHF/mild rhabdo/poorly controlled HTN. - Will continue MVI and protonix therapy. - Hepatitis serologies already negative; if Cr improves enough, would like to get a CT with IV contrast to assess for mass or vascular problem. - Discriminate function too low to consider steroids at this point but bili slowly rising. - Will give IV albumin since on diuretics at present, for 9 doses (done). (4) CHF (congestive heart failure) Current Visit: Yes Status: Acute Plan to address problem: - EF 20-25% this admit. - Flare and patient in the ICU on respiratory support/diuresis. Subjective Date of service: 11/02/21 Principal diagnosis: Cirrhosis Interval history: The patient was transferred from the floor for worsening respiratory symptoms, and is on BiPAP. He has variable level of consciousness, and is not following commands. He has no fevers, and no blood in the stools. His urine output has been good. CIWA has been held, and he is not on narcotics. Objective - Constitutional Vitals: Temp Pulse Resp BP Pulse Ox 98.4 F 59 L 16 145/113 100 11/02/21 17:05 11/02/21 17:00 11/02/21 17:00 11/02/21 17:00 11/02/21 17:00 General appearance: no acute distress - Respiratory Respiratory effort: labored Respiratory: bilateral: CTA (BiPAP) - Cardiovascular Rhythm: regular Heart Sounds: Present: S1 & S2 - Gastrointestinal General gastrointestinal: Present: soft, non-tender, distended (Mild ascites) - Labs CBC & Chem 7: 11/02/21 07:00 11/02/21 07:00 Labs: Laboratory Results - last 24 hr 11/02/21 11/02/21 11/02/21 00:12 06:08 07:00 WBC 13.4 H RBC 5.24 H Hgb 13.7 Hct 42.6 MCV 81 L MCH 26 L MCHC 32 RDW 17.7 H Plt Count 178 ABG pH ABG pCO2 ABG pO2 ABG HCO3 ABG O2 Saturation ABG O2 Content ABG Base Excess ABG Hemoglobin ABG Carboxyhemoglobin ABG Methemoglobin Oxyhemoglobin FiO2 Sodium Potassium Chloride Carbon Dioxide Anion Gap BUN Creatinine Estimated GFR BUN/Creatinine Ratio Glucose POC Glucose 131 H 160 H Calcium 11/02/21 11/02/21 11/02/21 07:00 08:54 16:52 WBC RBC Hgb Hct MCV MCH MCHC RDW Plt Count ABG pH 7.370 ABG pCO2 46.2 ABG pO2 126.7 H ABG HCO3 26.1 H ABG O2 Saturation 98.4 ABG O2 Content 19.0 ABG Base Excess 0.4 ABG Hemoglobin 14.0 ABG Carboxyhemoglobin 1.8 ABG Methemoglobin 0.5 Oxyhemoglobin 96.1 FiO2 40 Sodium 137 Potassium 5.8 H D Chloride 91.9 L Carbon Dioxide 24 Anion Gap 27 BUN 122 H Creatinine 2.6 H Estimated GFR 31 BUN/Creatinine Ratio 47 Glucose 136 H POC Glucose 141 H Calcium 9.2
[2021-11-02 18:33] LABS: Calcium 9.5 mg/dL (8.4-10.2)
--- NOTE | 2021-11-02 20:48 | Progress Note ---
Assessment and Plan # Acute Kidney Injury: suspect underlying CKD in setting of HTN. May be having cardio-renal and/or hepatorenal changes. - Restart lasix - Discontinued potassium supplementation and aldactone - Reduced D5W rate noted - Place miller - s/p IV albumin per GI - strict Is/Os - renal imaging WNL - urinalysis, urine studies reviewed- no hematuria, check UP/C - alcohol, salicylate negative - serologies ordered - BP control - avoid nephrotoxins - renally dose medications - no immediate need for renal replacement therapy # Hyperkalemia - Restart lasix - Discontinued potassium supplementation and aldactone # Edema: Appreciate GI consult regarding cirrhosis, jaundice. May benefit from echocardiogram given history of uncontrolled HTN, potential cardiac effects and hepatic congestion # HTN: Agree with antihypertensives, recommend avoiding clonidine initiation given current mental status # Alcohol Hepatitis, Likely Cirrhosis: ultrasound pending, GI consult noted Subjective Date of service: 11/02/21 Principal diagnosis: Cirrhosis Interval history: Transferred to ICU. Objective - Exam Narrative Exam: Constitutional: no acute distress Head: NC/AT Neck: supple Lungs: On bipap CV: RRR, no M/R/G Abdomen: soft, non-tender, bowel sounds present Back: nontender Extremities: 3+ edema, pulses WNL Skin: intact Neuro: Confused - Vital Signs Vital signs: Vital Signs - 12hr 11/02/21 11/02/21 11/02/21 09:00 09:52 10:00 Temperature Pulse Rate 59 L 59 L 60 Respiratory 14 20 Rate Blood Pressure 146/112 150/114 142/109 O2 Sat by Pulse 100 Oximetry 11/02/21 11/02/21 11/02/21 11:00 12:00 12:06 Temperature 96.8 F L Pulse Rate 60 57 L Respiratory 17 15 Rate Blood Pressure 141/111 144/112 O2 Sat by Pulse 100 100 Oximetry 11/02/21 11/02/21 11/02/21 13:00 14:00 14:57 Temperature Pulse Rate 59 L 57 L 58 L Respiratory 23 15 Rate Blood Pressure 141/120 148/110 158/112 O2 Sat by Pulse 99 Oximetry 11/02/21 11/02/21 11/02/21 15:00 16:00 16:04 Temperature Pulse Rate 59 L 59 L 60 Respiratory 16 14 Rate Blood Pressure 145/112 158/117 158/117 O2 Sat by Pulse 100 100 Oximetry 11/02/21 11/02/21 11/02/21 17:00 17:05 18:00 Temperature 98.4 F Pulse Rate 61 57 L Respiratory 12 19 Rate Blood Pressure 145/113 155/101 O2 Sat by Pulse 100 99 Oximetry - Lab 11/02/21 07:00 11/02/21 Unknown Most recent lab results ABG pH 7.370 pH Units (7.350-7.450) 11/02/21 08:54 ABG pCO2 46.2 mm Hg 11/02/21 08:54 ABG pO2 126.7 mm Hg (80.0-90.0) H 11/02/21 08:54 ABG HCO3 26.1 mmol/L (20.0-26.0) H 11/02/21 08:54 ABG O2 Saturation 98.4 % (95.0-99.0) 11/02/21 08:54 Calcium 9.5 mg/dL (8.4-10.2) 11/02/21 Unknown Magnesium 2.90 mg/dL (1.7-2.3) H 11/02/21 Unknown Urine Creatinine 36.1 mg/dL (0.1-20.0) H 10/30/21 00:29 Urine Sodium 66 mmol/L 10/30/21 00:29 Medications & Allergies - Medications Allergies/Adverse Reactions: Allergies No Known Allergies Allergy (Unverified 11/02/21 15:49) Home Medications: Home Medications Medication Instructions Recorded Confirmed Last Taken Type Furosemide [Lasix] 20 mg PO QDAY #30 tablet 09/22/21 Unknown Rx Lisinopril [Zestril] 5 mg PO DAILY #30 09/22/21 Unknown Rx Metoprolol [Lopressor TAB] 25 mg PO BID #60 tablet 09/22/21 Unknown Rx Pantoprazole [Protonix TAB] 20 mg PO QDAY #30 tablet 09/22/21 Unknown Rx Potassium Chloride [K-Dur] 10 meq PO QDAY #30 09/22/21 Unknown Rx Simvastatin 10 mg PO QHS #30 09/22/21 Unknown Rx Active Medications: Generic Name Dose Route Start Last Admin Trade Name Freq PRN Reason Stop Dose Admin Acetaminophen 650 mg 11/01/21 12:39 Acetaminophen 325 Mg Tab PO Q6H PRN Pain MILD(1-3)/Fever >100.5/MILTON Albuterol 2.5 mg 10/30/21 00:44 Albuterol 2.5 Mg/3 Ml Nebu IH Q3HRT PRN Shortness Of Breath Amlodipine Besylate 5 mg 11/02/21 10:00 11/02/21 09:52 Amlodipine 5 Mg Tab FEEDTUBE 5 mg QDAY CAROL Administration Clonidine HCl 0.1 mg 11/02/21 10:00 11/02/21 09:52 Clonidine 0.1 Mg Tab FEEDTUBE 0.1 mg DAILY CAROL Administration Furosemide 40 mg 11/02/21 10:00 11/02/21 17:17 Furosemide 40 Mg/4 Ml Inj IV 40 mg 0600,1800 CAROL Administration Hydralazine HCl 10 mg 10/30/21 00:35 11/02/21 16:04 Hydralazine 20 Mg/1 Ml Inj IV 10 mg Q6H PRN Administration SBP >/=170; DBP >/=110 Hydralazine HCl 10 mg 11/02/21 14:00 11/02/21 14:57 Hydralazine 10 Mg Tab FEEDTUBE 10 mg Q8HR CRAOL Administration Dextrose 1,000 mls @ 42 mls/hr 11/02/21 18:00 11/02/21 18:36 D5w IV 42 mls/hr DIRECT CAROL Administration Labetalol HCl 10 mg 10/30/21 08:51 10/30/21 09:25 Labetalol 20 Mg/4 Ml Inj IV 10 mg Q4HR PRN Administration sbp>160 Lactulose 20 gm 11/02/21 10:00 11/02/21 09:52 Lactulose 20 Gm/30 Ml Oral Liqd FEEDTUBE 20 gm Q12HR CAROL Administration Lansoprazole 30 mg 11/03/21 10:00 Lansoprazole 30 Mg Solutab FEEDTUBE QDAY CAROL Naloxone HCl 0.4 mg 11/02/21 15:35 11/02/21 16:00 Naloxone 0.4 Mg/1 Ml Inj IV 0.4 mg ONCE CAROL Administration Ondansetron HCl 4 mg 10/30/21 00:44 Ondansetron 4 Mg/2 Ml Inj IV Q8H PRN Nausea And Vomiting Phenobarbital 130 mg 11/02/21 16:31 Phenobarbital 130 Mg/Ml Vial IV Q15M PRN Agitation Rifaximin 550 mg 11/02/21 10:00 11/02/21 10:49 Rifaximin 550 Mg Tab FEEDTUBE 550 mg BID CAROL Administration Sodium Chloride 10 ml 10/30/21 10:00 11/02/21 09:42 Sodium Chloride 0.9% 10 Ml Flush Syringe IV 10 ml BID CAROL Administration Sodium Chloride 10 ml 10/30/21 00:44 Sodium Chloride 0.9% 10 Ml Flush Syringe IV PRN PRN LINE FLUSH Spironolactone 50 mg 11/02/21 10:00 11/02/21 09:53 Spironolactone 50 Mg Tab FEEDTUBE Not Given QDAY CAROL
[2021-11-03 03:36] LABS: ABG Base Excess 5.1 mmol/L (-2.0-3.0); ABG HCO3 28.7 mmol/L (20.0-26.0); ABG Methemoglobin 0.5 % (0.0-1.5); ABG Oxygen Saturation 98.7 % (95.0-99.0); ABG PCO2 38.6 mm Hg; ABG PH 7.489 pH Units (7.350-7.450); ABG PO2 131.9 mm Hg (80.0-90.0)
[2021-11-03 05:24] LABS: Hematocrit 43.3 % (35.5-45.6); Hemoglobin 13.6 gm/dl (11.8-15.2); Mean Corpuscular HGB Conc 32 % (32-34); Mean Corpuscular Volume 81 fl (84-94); Platelet Count 156 K/mm3 (140-440); Red Blood Count 5.36 M/mm3 (3.65-5.03); Red Cell Distribution Width 17.2 % (13.2-15.2)
[2021-11-03 05:32] LABS: INR 1.68 (0.87-1.13)
[2021-11-03 05:45] LABS: Albumin 4.3 g/dL (3.9-5); Bilirubin,Direct 4.9 mg/dL (0-0.2)
[2021-11-03] MEDS: FUROSEMIDE 40 MG/4 ML INJ IV SCH ×2 (06:51→18:08)
[2021-11-03] MEDS: hydrALAZINE 10 MG TAB FEEDTUBE SCH (06:52)
[2021-11-03] MEDS: cloNIDine 0.1 MG TAB FEEDTUBE SCH (09:32)
[2021-11-03] MEDS: RIFAXIMIN 550 MG TAB FEEDTUBE SCH ×2 (09:32→21:09)
[2021-11-03] MEDS: LACTULOSE 20 GM/30 ML ORAL LIQD FEEDTUBE SCH (09:32)
[2021-11-03] MEDS: LANSOPRAZOLE 30 MG SOLUTAB FEEDTUBE SCH (09:32)
[2021-11-03] MEDS: MULTIVITAMIN / MINERAL ORAL LIQUID 15 ML PO SCH (09:32)
[2021-11-03] MEDS: amLODIPine 5 MG TAB FEEDTUBE SCH (09:32)
[2021-11-03 10:19] LABS: Calcium 9.2 mg/dL (8.4-10.2)
[2021-11-03] MEDS ORDERED: chlordiazePOXIDE 25 MG CAP FEEDTUBE PRN (10:52)
--- NOTE | 2021-11-03 11:02 | Progress Note ---
Subjective Date of service: 11/03/21 Principal diagnosis: Cirrhosis Objective Vital Signs - 12hr 11/02/21 11/03/21 11/03/21 23:08 00:00 01:00 Temperature 96.4 F L Pulse Rate 58 L 58 L 57 L Pulse Rate [ 58 L From Monitor] Respiratory 12 12 11 L Rate Blood Pressure 151/105 150/121 152/107 O2 Sat by Pulse 100 99 100 Oximetry 11/03/21 11/03/21 11/03/21 02:00 03:00 03:44 Temperature Pulse Rate 61 58 L 58 L Pulse Rate [ From Monitor] Respiratory 12 12 25 H Rate Blood Pressure 163/132 155/126 158/124 O2 Sat by Pulse 97 100 Oximetry 11/03/21 11/03/21 11/03/21 04:00 05:00 06:00 Temperature 96.6 F L Pulse Rate 58 L 58 L 57 L Pulse Rate [ 58 L From Monitor] Respiratory 14 14 14 Rate Blood Pressure 145/108 159/117 153/113 O2 Sat by Pulse 100 88 95 Oximetry 11/03/21 11/03/21 11/03/21 06:52 07:00 07:49 Temperature 96.7 F L Pulse Rate 58 L 59 L Pulse Rate [ From Monitor] Respiratory 16 Rate Blood Pressure 149/110 155/128 O2 Sat by Pulse 97 Oximetry 11/03/21 11/03/21 11/03/21 07:54 08:00 09:00 Temperature Pulse Rate 58 L 58 L Pulse Rate [ 55 L From Monitor] Respiratory 11 L 9 L 14 Rate Blood Pressure 151/114 147/118 O2 Sat by Pulse 100 98 95 Oximetry 11/03/21 11/03/21 09:32 10:00 Temperature Pulse Rate 59 L 57 L Pulse Rate [ From Monitor] Respiratory 12 Rate Blood Pressure 153/109 152/108 O2 Sat by Pulse 100 Oximetry Constitutional: other (minimally rsponisve, FFM on BIPAP) Neck: supple, no lymphadenopathy Effort: mildly labored Ascultation: Bilateral: diminished breath sounds (Poor AE) Cardiovascular: regular rate and rhythm, other (S1,S2) Gastrointestinal: soft, non-tender, other (Distended, Wu catheter in pace -no urine in urine bag) Extremities: no cyanosis, edema (lower extremity) Neurologic: unable to assess CBC and BMP: 11/03/21 04:39 11/03/21 04:39 ABG, PT/INR, D-dimer: ABG ABG pH 7.489 pH Units (7.350-7.450) H 11/03/21 03:09 ABG pCO2 38.6 mm Hg 11/03/21 03:09 ABG pO2 131.9 mm Hg (80.0-90.0) H 11/03/21 03:09 ABG O2 Saturation 98.7 % (95.0-99.0) 11/03/21 03:09 PT/INR, D-dimer PT 21.9 Sec. (12.2-14.9) H 11/03/21 04:39 INR 1.68 (0.87-1.13) H 11/03/21 04:39 Abnormal lab findings: Abnormal Labs 10/29/21 10/29/21 10/29/21 19:04 19:04 19:04 WBC 11.7 H RBC 6.09 H Hgb 16.1 H Hct 49.9 H MCV 82 L MCH 26 L MCHC RDW 17.5 H Lymph % (Auto) 8.0 L Lymph # (Auto) 0.9 L Seg Neutrophils % 86.1 H Seg Neuts % (Manual) Lymphocytes % (Manual) Nucleated RBC % Seg Neutrophils # 10.0 H Seg Neutrophils # Man Lymphocytes # (Manual) PT 19.6 H INR 1.47 H ABG pH ABG pO2 ABG HCO3 ABG Base Excess Sodium Potassium Chloride Carbon Dioxide BUN Creatinine Glucose POC Glucose Magnesium Total Bilirubin Direct Bilirubin AST ALT Ammonia Total Creatine Kinase NT-Pro-B Natriuret Pep 28783 H Total Protein Albumin PTH Intact Urine Creatinine Salicylates Acetaminophen 10/29/21 10/29/21 10/29/21 19:04 19:04 19:04 WBC RBC Hgb Hct MCV MCH MCHC RDW Lymph % (Auto) Lymph # (Auto) Seg Neutrophils % Seg Neuts % (Manual) Lymphocytes % (Manual) Nucleated RBC % Seg Neutrophils # Seg Neutrophils # Man Lymphocytes # (Manual) PT INR ABG pH ABG pO2 ABG HCO3 ABG Base Excess Sodium 136 L Potassium Chloride 86.3 L Carbon Dioxide 20 L BUN 110 H Creatinine 3.1 H Glucose 119 H POC Glucose Magnesium Total Bilirubin 5.80 H Direct Bilirubin AST 62 H ALT Ammonia 12.0 L Total Creatine Kinase 1863 H NT-Pro-B Natriuret Pep Total Protein Albumin 3.4 L PTH Intact Urine Creatinine Salicylates < 0.3 L Acetaminophen 10/29/21 10/30/21 10/30/21 19:04 00:29 15:51 WBC RBC Hgb Hct MCV MCH MCHC RDW Lymph % (Auto) Lymph # (Auto) Seg Neutrophils % Seg Neuts % (Manual) Lymphocytes % (Manual) Nucleated RBC % Seg Neutrophils # Seg Neutrophils # Man Lymphocytes # (Manual) PT INR ABG pH ABG pO2 ABG HCO3 ABG Base Excess Sodium Potassium Chloride Carbon Dioxide BUN Creatinine 2.4 H Glucose POC Glucose Magnesium Total Bilirubin Direct Bilirubin AST ALT Ammonia Total Creatine Kinase NT-Pro-B Natriuret Pep Total Protein Albumin PTH Intact Urine Creatinine 36.1 H Salicylates Acetaminophen 5.0 L 10/31/21 10/31/21 10/31/21 04:59 04:59 04:59 WBC 12.4 H RBC 5.53 H Hgb Hct MCV 81 L MCH 26 L MCHC 31 L RDW 17.1 H Lymph % (Auto) Lymph # (Auto) Seg Neutrophils % Seg Neuts % (Manual) 98.0 H Lymphocytes % (Manual) 0 L Nucleated RBC % 2.0 H Seg Neutrophils # Seg Neutrophils # Man 12.2 H Lymphocytes # (Manual) 0.0 L PT INR ABG pH ABG pO2 ABG HCO3 ABG Base Excess Sodium Potassium 2.6 L* D Chloride 90.0 L Carbon Dioxide BUN 105 H Creatinine 2.1 H Glucose 110 H POC Glucose Magnesium Total Bilirubin 6.40 H Direct Bilirubin AST 99 H ALT Ammonia Total Creatine Kinase NT-Pro-B Natriuret Pep Total Protein Albumin 3.8 L PTH Intact 170.9 H Urine Creatinine Salicylates Acetaminophen 10/31/21 10/31/21 11/01/21 13:45 13:54 07:51 WBC RBC 5.62 H Hgb Hct 46.2 H MCV 82 L MCH 26 L MCHC RDW 17.2 H Lymph % (Auto) 4.5 L Lymph # (Auto) 0.5 L Seg Neutrophils % Seg Neuts % (Manual) Lymphocytes % (Manual) Nucleated RBC % Seg Neutrophils # 9.1 H Seg Neutrophils # Man Lymphocytes # (Manual) PT INR ABG pH ABG pO2 ABG HCO3 ABG Base Excess Sodium 134 L Potassium 3.5 L D Chloride 87.1 L Carbon Dioxide BUN 95 H Creatinine 2.1 H Glucose 130 H POC Glucose 148 H Magnesium Total Bilirubin 7.00 H Direct Bilirubin AST 114 H ALT 66 H Ammonia Total Creatine Kinase NT-Pro-B Natriuret Pep Total Protein Albumin PTH Intact Urine Creatinine Salicylates Acetaminophen 11/01/21 11/01/21 11/02/21 07:51 07:51 00:12 WBC RBC Hgb Hct MCV MCH MCHC RDW Lymph % (Auto) Lymph # (Auto) Seg Neutrophils % Seg Neuts % (Manual) Lymphocytes % (Manual) Nucleated RBC % Seg Neutrophils # Seg Neutrophils # Man Lymphocytes # (Manual) PT 22.7 H INR 1.76 H ABG pH ABG pO2 ABG HCO3 ABG Base Excess Sodium Potassium Chloride 87.2 L Carbon Dioxide BUN 105 H Creatinine 2.7 H Glucose POC Glucose 131 H Magnesium Total Bilirubin 9.60 H Direct Bilirubin AST 100 H ALT 80 H Ammonia Total Creatine Kinase 1594 H NT-Pro-B Natriuret Pep Total Protein Albumin PTH Intact Urine Creatinine Salicylates Acetaminophen 11/02/21 11/02/21 11/02/21 06:08 07:00 07:00 WBC 13.4 H RBC 5.24 H Hgb Hct MCV 81 L MCH 26 L MCHC RDW 17.7 H Lymph % (Auto) Lymph # (Auto) Seg Neutrophils % Seg Neuts % (Manual) Lymphocytes % (Manual) Nucleated RBC % Seg Neutrophils # Seg Neutrophils # Man Lymphocytes # (Manual) PT INR ABG pH ABG pO2 ABG HCO3 ABG Base Excess Sodium Potassium 5.8 H D Chloride 91.9 L Carbon Dioxide BUN 122 H Creatinine 2.6 H Glucose 136 H POC Glucose 160 H Magnesium Total Bilirubin Direct Bilirubin AST ALT Ammonia Total Creatine Kinase NT-Pro-B Natriuret Pep Total Protein Albumin PTH Intact Urine Creatinine Salicylates Acetaminophen 11/02/21 11/02/21 11/02/21 08:54 16:52 Unknown WBC RBC Hgb Hct MCV MCH MCHC RDW Lymph % (Auto) Lymph # (Auto) Seg Neutrophils % Seg Neuts % (Manual) Lymphocytes % (Manual) Nucleated RBC % Seg Neutrophils # Seg Neutrophils # Man Lymphocytes # (Manual) PT INR ABG pH ABG pO2 126.7 H ABG HCO3 26.1 H ABG Base Excess Sodium Potassium Chloride 93.0 L Carbon Dioxide BUN 125 H Creatinine 3.2 H Glucose 135 H POC Glucose 141 H Magnesium Total Bilirubin Direct Bilirubin AST ALT Ammonia Total Creatine Kinase NT-Pro-B Natriuret Pep Total Protein Albumin PTH Intact Urine Creatinine Salicylates Acetaminophen 11/02/21 11/03/21 11/03/21 Unknown 00:44 03:09 WBC RBC Hgb Hct MCV MCH MCHC RDW Lymph % (Auto) Lymph # (Auto) Seg Neutrophils % Seg Neuts % (Manual) Lymphocytes % (Manual) Nucleated RBC % Seg Neutrophils # Seg Neutrophils # Man Lymphocytes # (Manual) PT INR ABG pH 7.489 H ABG pO2 131.9 H ABG HCO3 28.7 H ABG Base Excess 5.1 H Sodium Potassium Chloride Carbon Dioxide BUN Creatinine Glucose POC Glucose 147 H Magnesium 2.90 H Total Bilirubin Direct Bilirubin AST ALT Ammonia Total Creatine Kinase NT-Pro-B Natriuret Pep Total Protein Albumin PTH Intact Urine Creatinine Salicylates Acetaminophen 11/03/21 11/03/21 11/03/21 04:39 04:39 04:39 WBC 16.1 H RBC 5.36 H Hgb Hct MCV 81 L MCH 26 L MCHC RDW 17.2 H Lymph % (Auto) Lymph # (Auto) Seg Neutrophils % Seg Neuts % (Manual) Lymphocytes % (Manual) Nucleated RBC % Seg Neutrophils # Seg Neutrophils # Man Lymphocytes # (Manual) PT 21.9 H INR 1.68 H ABG pH ABG pO2 ABG HCO3 ABG Base Excess Sodium Potassium Chloride Carbon Dioxide BUN Creatinine Glucose POC Glucose Magnesium Total Bilirubin 8.80 H Direct Bilirubin 4.9 H AST 115 H ALT 138 H Ammonia Total Creatine Kinase NT-Pro-B Natriuret Pep Total Protein 6.2 L Albumin PTH Intact Urine Creatinine Salicylates Acetaminophen 11/03/21 11/03/21 11/03/21 04:39 04:39 06:04 WBC RBC Hgb Hct MCV MCH MCHC RDW Lymph % (Auto) Lymph # (Auto) Seg Neutrophils % Seg Neuts % (Manual) Lymphocytes % (Manual) Nucleated RBC % Seg Neutrophils # Seg Neutrophils # Man Lymphocytes # (Manual) PT INR ABG pH ABG pO2 ABG HCO3 ABG Base Excess Sodium Potassium Chloride 94.1 L Carbon Dioxide BUN 122 H Creatinine 2.9 H Glucose 130 H POC Glucose 163 H Magnesium Total Bilirubin Direct Bilirubin AST ALT Ammonia 62.0 H Total Creatine Kinase NT-Pro-B Natriuret Pep Total Protein Albumin PTH Intact Urine Creatinine Salicylates Acetaminophen
--- NOTE | 2021-11-03 11:22 | Gastroenterology Progress Note ---
Assessment and Plan - Patient Problems (1) Altered mental status Current Visit: Yes Status: Acute Plan to address problem: - Likely combo of asterixis and DTs as well as severe uremia. - Will continue xifaxan and wean off lactulose given TRUONG and diarrhea (convert lactulose to QD on Monday). - Continue CIWA and clear liquids given somnolence. - Stop all narcotics and benzos. - May need HD if uremia fails to improve. (2) TRUONG (acute kidney injury) Current Visit: Yes Status: Acute Plan to address problem: - Per renal service. - His baseline Cr appears to be 1.9 on labs from September (different MRN). - Urine output improving in last 24 hours with diuresis. (3) Alcoholic cirrhosis of liver with ascites Current Visit: Yes Status: Acute Plan to address problem: - Use diuretics with caution as per Renal, as I suspect developing HRS and CHF, but may also have TRUONG from his CHF/mild rhabdo/poorly controlled HTN. - Will continue MVI and protonix therapy. - Hepatitis serologies already negative; if Cr improves enough, would like to get a CT with IV contrast to assess for mass or vascular problem. - Discriminate function too low to consider steroids at this point but bili slowly rising. - Will give IV albumin since on diuretics at present, for 9 doses (done). (4) CHF (congestive heart failure) Current Visit: Yes Status: Acute Plan to address problem: - EF 20-25% this admit. - Flare and patient in the ICU on respiratory support/diuresis. Subjective Date of service: 11/03/21 Principal diagnosis: Cirrhosis Interval history: The patient is stable on bipap. Will open eyes today, but still not following commands. No fevers overnight, and abdominal swelling is no change. Objective - Constitutional Vitals: Temp Pulse Resp BP Pulse Ox 96.7 F L 56 L 14 162/110 97 11/03/21 07:49 11/03/21 11:00 11/03/21 11:00 11/03/21 11:00 11/03/21 11:00 General appearance: no acute distress, other - Respiratory Respiratory effort: normal Respiratory: bilateral: CTA (BiPAP) - Cardiovascular Rhythm: regular Heart Sounds: Present: S1 & S2 - Gastrointestinal General gastrointestinal: Present: soft, non-tender, distended (Moderate ascites) - Labs CBC & Chem 7: 11/03/21 04:39 11/03/21 04:39 Labs: Laboratory Results - last 24 hr 11/02/21 11/02/21 11/02/21 16:52 Unknown Unknown WBC RBC Hgb Hct MCV MCH MCHC RDW Plt Count PT INR ABG pH ABG pCO2 ABG pO2 ABG HCO3 ABG O2 Saturation ABG O2 Content ABG Base Excess ABG Hemoglobin ABG Carboxyhemoglobin ABG Methemoglobin Oxyhemoglobin FiO2 Sodium 140 Potassium 4.3 D Chloride 93.0 L Carbon Dioxide 27 Anion Gap 24 BUN 125 H Creatinine 3.2 H Estimated GFR 25 BUN/Creatinine Ratio 39 Glucose 135 H POC Glucose 141 H Calcium 9.5 Magnesium 2.90 H Total Bilirubin Direct Bilirubin Indirect Bilirubin AST ALT Alkaline Phosphatase Ammonia Total Protein Albumin Albumin/Globulin Ratio 11/03/21 11/03/21 11/03/21 00:44 03:09 04:39 WBC 16.1 H RBC 5.36 H Hgb 13.6 Hct 43.3 MCV 81 L MCH 26 L MCHC 32 RDW 17.2 H Plt Count 156 PT INR ABG pH 7.489 H ABG pCO2 38.6 ABG pO2 131.9 H ABG HCO3 28.7 H ABG O2 Saturation 98.7 ABG O2 Content 19.1 ABG Base Excess 5.1 H ABG Hemoglobin 14.0 ABG Carboxyhemoglobin 1.8 ABG Methemoglobin 0.5 Oxyhemoglobin 96.5 FiO2 40 Sodium Potassium Chloride Carbon Dioxide Anion Gap BUN Creatinine Estimated GFR BUN/Creatinine Ratio Glucose POC Glucose 147 H Calcium Magnesium Total Bilirubin Direct Bilirubin Indirect Bilirubin AST ALT Alkaline Phosphatase Ammonia Total Protein Albumin Albumin/Globulin Ratio 11/03/21 11/03/21 11/03/21 04:39 04:39 04:39 WBC RBC Hgb Hct MCV MCH MCHC RDW Plt Count PT 21.9 H INR 1.68 H ABG pH ABG pCO2 ABG pO2 ABG HCO3 ABG O2 Saturation ABG O2 Content ABG Base Excess ABG Hemoglobin ABG Carboxyhemoglobin ABG Methemoglobin Oxyhemoglobin FiO2 Sodium Potassium Chloride Carbon Dioxide Anion Gap BUN Creatinine Estimated GFR BUN/Creatinine Ratio Glucose POC Glucose Calcium Magnesium Total Bilirubin 8.80 H Direct Bilirubin 4.9 H Indirect Bilirubin 3.9 AST 115 H ALT 138 H Alkaline Phosphatase 88 Ammonia 62.0 H Total Protein 6.2 L Albumin 4.3 Albumin/Globulin Ratio 2.3 11/03/21 11/03/21 04:39 06:04 WBC RBC Hgb Hct MCV MCH MCHC RDW Plt Count PT INR ABG pH ABG pCO2 ABG pO2 ABG HCO3 ABG O2 Saturation ABG O2 Content ABG Base Excess ABG Hemoglobin ABG Carboxyhemoglobin ABG Methemoglobin Oxyhemoglobin FiO2 Sodium 141 Potassium 3.7 Chloride 94.1 L Carbon Dioxide 27 Anion Gap 24 BUN 122 H Creatinine 2.9 H Estimated GFR 28 BUN/Creatinine Ratio 42 Glucose 130 H POC Glucose 163 H Calcium 9.2 Magnesium Total Bilirubin Direct Bilirubin Indirect Bilirubin AST ALT Alkaline Phosphatase Ammonia Total Protein Albumin Albumin/Globulin Ratio
--- NOTE | 2021-11-03 12:15 | Progress Note ---
<NUNU HOLLEY - Last Filed: 11/03/21 19:45> Assessment and Plan Assessment and plan: This is a 51-year-old male with known past medical history of probable cirrhosis and/or hepatic disease, manifested by hepatomegaly, scleral icterus, and lower extremity swelling admitted for hypertensive emergency, alcholic hepatitis, and acute kidney injury Hospital Course to Date: 10/31: Albumin infusion noted. Continue lasix mehdi for diuresis. Awaiting interpretation of US liver. When renal function stabilizes, will order CTAP w/ con if ok with nephrology. ECHO pending as well for cardiac eval. Code MET called in afternoon. patient was noted to be in respiratory distress with fluctuating mentation. Noted to be bradycardic in low 40's. Nadalol dc and patient admin glucagon. Will avoid BB the rest of the admission. CXR negative for pulmonary edema or pneumonia. Placed on nasal cannula with subsequent improvement. D/w GI, will start rifaximin, lactulose decreased. 11/01 : D/w GI. mentation improved. OK to start CLD. Renal function worse today, will follow nephro input. ECHO completed, demonstrated reduced EF of 20-25%. Will consult cardiology. 11/02: Patient transferred to ICU overnight due to worsening respiratory status and periods of apnea now on continuous Bipap. This am CXR with mild CHF, renal function continue to worsen. On IV Lasix per Nephro. Patient remains encephalopatic, remains on CIWA protocol and on lactulose BID, repeat ammonia level in the am. Continue to monitor renal function and electrolytes. 11/03: Mentation with slight improvement, remains lethargic but was able to voice his name and following simple commands this am. Continue lactulose and CIWA protocol, phenobarb switched to PRN PO librium due to worsen renal function. Patient remains on continuous Bipap due to apnea. Continue O2 supplementation per CCM. Renal function continue to worsen, remains on IV lasix per Nephro. No immediate indication for iHD at this time per Nephro. TF on hold for now per GI, low dose D5W gtt initiated. 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 - lasix, spironalactone . d/c spironalactone - TF on hold per GI, low dose D5W gtt initiated #Acute Respiratory Distress #Apneic Episodes - Went into respirtaory distress overnight requiring continuous Bipap - Peroids of apnea observed - Remains on Bipap this am - CXR reveal mild CHF, now on IV Lasix per Nephro - This am ABG noted - Continue O2 supplement for now and wean as tolerated - Continue SPO2 monitor for SPO2 goal above 92% #Congestive Heart Failure with Reduced EF #Cardiomyopathy #Hypertensive emergency (resolved) - Recent ECHO EF 20-25% - Cardiology consulted, appreciate recommendations - IV Lasix added per Nephro - blood pressure regimen initiated: norvasc, amlodipine, nadalol, prn hydralazine and labetalol. - Continue blood pressure monitor per protocol - Maintain MAP above 65 - Strict I&Os and daily weight #Acute kidney injury due to vasomotor nephropathy #Hypokalemia - Cr: 4.1 on admission - trend renal makers daily - nephrology consulted, currently recommends trial of lasix, renal us and studies ordered - Strict intake and output - Avoid nephrotoxic medications; Renally dose medications - Monitor and replace electrolytes as needed #Acute Hepatic Encephalopathy #Possible ETOH Withdrawal #S/p Witnessed Fall - extensive alcohol use history, 12 pack per day - Worsen mental status probable DTs - On CIWA protocol, phenobarb switched to PRN PO librium due to worsen renal function - CT head with no acute findings - On Lactulose BID, ammonia 66 - Fall precaution - Maintenance of sleep-wake cycle #Rhabdomyolysis - trend CK - gentle hydration #GI/DVT Prophylaxis - PPI- Lansoprazole - SCDs to bilateral lower extremities while in bed #Advance care planning - Disease education, care plan, diagnoses, and prognosis discussed with patient's son. Patient is a FULL code. Patient's family acknowledged understanding and agree with care plan The high probability of a clinically significant, sudden or life threatening deterioration of the [multiple] system(s) required my full and direct attention, intervention and personal management. The aggregate critical care time was [60] minutes. This time is in addition to time spent performing reported procedures but includes the following: [x] Data Review and interpretation [x] Patient assessment and monitoring of vital signs [x] Documentation [x] Medication orders and management Disposition Plan: ICU Total Time Spent with Patient (Minutes): 60 History Interval history: Patient seen and examined at the bedside. Remains lethargic, however, mentation improved. Patient voiced his name and followed simple commands this morning. Remains on Bipap. TF on hold per GI, now on D5W. Remains in SB on the monitor, VSS. JERONIMO overnight Hospitalist Physical - Constitutional Vitals: Temp Pulse Resp BP Pulse Ox 96.3 F L 59 L 16 162/110 100 11/03/21 11:44 11/03/21 11:47 11/03/21 11:47 11/03/21 11:00 11/03/21 11:47 General appearance: Present: no acute distress, obese, other (Lethargic) - EENT Eyes: Present: PERRL ENT: hearing intact - Neck Neck: Present: normal ROM - Respiratory Respiratory effort: normal Respiratory: bilateral: diminished - Cardiovascular Rhythm: regular Heart Sounds: Present: S1 & S2 - Extremities Extremities: no ischemia, pulses intact, pulses symmetrical Extremity abnormal: edema - Peripheral Assessment Generalized Edema Type: Non-pitting Edema Degree: 1+ Capillary Refill: < 3 seconds Skin Temperature: Warm Peripheral Pulses: within normal limits - Abdominal General gastrointestinal: soft, non-distended, normal bowel sounds - Integumentary Integumentary: Present: warm, dry - Psychiatric Psychiatric: appropriate mood/affect, cooperative, other (Lethargic) - Neurologic Neurologic: moves all extremities, other (Lethargic but following simple commands) - Allied Health Allied health notes reviewed: nursing, case management Results - Labs CBC & Chem 7: 11/03/21 04:39 11/03/21 04:39 Labs: Laboratory Last Values WBC 16.1 K/mm3 (4.5-11.0) H 11/03/21 04:39 RBC 5.36 M/mm3 (3.65-5.03) H 11/03/21 04:39 Hgb 13.6 gm/dl (11.8-15.2) 11/03/21 04:39 Hct 43.3 % (35.5-45.6) 11/03/21 04:39 MCV 81 fl (84-94) L 11/03/21 04:39 MCH 26 pg (28-32) L 11/03/21 04:39 MCHC 32 % (32-34) 11/03/21 04:39 RDW 17.2 % (13.2-15.2) H 11/03/21 04:39 Plt Count 156 K/mm3 (140-440) 11/03/21 04:39 Lymph % (Auto) 4.5 % (13.4-35.0) L 11/01/21 07:51 [place] % (Auto) Head Of [employer] 11/01/21 07:51 Eos % (Auto) 0.4 % (0.0-4.3) 11/01/21 07:51 Baso % (Auto) 0.5 % (0.0-1.8) 11/01/21 07:51 Lymph # (Auto) 0.5 K/mm3 (1.2-5.4) L 11/01/21 07:51 [place] # (Auto) 0.6 K/mm3 (0.0-0.8) 11/01/21 07:51 Eos # (Auto) 0.0 K/mm3 (0.0-0.4) 11/01/21 07:51 Baso # (Auto) 0.0 K/mm3 (0.0-0.1) 11/01/21 07:51 Add Manual Diff Complete 10/31/21 04:59 Total Counted 100 10/31/21 04:59 Seg Neutrophils % Head Of [employer] 11/01/21 07:51 Seg Neuts % (Manual) 98.0 % (40.0-70.0) H 10/31/21 04:59 Band Neutrophils % 0 % 10/31/21 04:59 Lymphocytes % (Manual) 0 % (13.4-35.0) L 10/31/21 04:59 Reactive Lymphs % (Man) 0 % 10/31/21 04:59 Monocytes % (Manual) 2.0 % (0.0-7.3) 10/31/21 04:59 Eosinophils % (Manual) 0 % (0.0-4.3) 10/31/21 04:59 Basophils % (Manual) 0 % (0.0-1.8) 10/31/21 04:59 Metamyelocytes % 0 % 10/31/21 04:59 Myelocytes % 0 % 10/31/21 04:59 Promyelocytes % 0 % 10/31/21 04:59 Blast Cells % 0 % 10/31/21 04:59 Nucleated RBC % 2.0 % (0.0-0.9) H 10/31/21 04:59 Seg Neutrophils # 9.1 K/mm3 (1.8-7.7) H 11/01/21 07:51 Seg Neutrophils # Man 12.2 K/mm3 (1.8-7.7) H 10/31/21 04:59 Band Neutrophils # 0.0 K/mm3 10/31/21 04:59 Lymphocytes # (Manual) 0.0 K/mm3 (1.2-5.4) L 10/31/21 04:59 Abs React Lymphs (Man) 0.0 K/mm3 10/31/21 04:59 Monocytes # (Manual) 0.2 K/mm3 (0.0-0.8) 10/31/21 04:59 Eosinophils # (Manual) 0.0 K/mm3 (0.0-0.4) 10/31/21 04:59 Basophils # (Manual) 0.0 K/mm3 (0.0-0.1) 10/31/21 04:59 Metamyelocytes # 0.0 K/mm3 10/31/21 04:59 Myelocytes # 0.0 K/mm3 10/31/21 04:59 Promyelocytes # 0.0 K/mm3 10/31/21 04:59 Blast Cells # 0.0 K/mm3 10/31/21 04:59 WBC Morphology Not Reportable 10/31/21 04:59 Hypersegmented Neuts Not Reportable 10/31/21 04:59 Hyposegmented Neuts Not Reportable 10/31/21 04:59 Hypogranular Neuts Not Reportable 10/31/21 04:59 Smudge Cells Not Reportable 10/31/21 04:59 Toxic Granulation Not Reportable 10/31/21 04:59 Toxic Vacuolation Not Reportable 10/31/21 04:59 Dohle Bodies Not Reportable 10/31/21 04:59 Pelger-Huet Anomaly Not Reportable 10/31/21 04:59 Osmar Rods Not Reportable 10/31/21 04:59 Platelet Estimate Consistent w auto 10/31/21 04:59 Clumped Platelets Not Reportable 10/31/21 04:59 Plt Clumps, EDTA Not Reportable 10/31/21 04:59 Large Platelets Not Reportable 10/31/21 04:59 Giant Platelets Not Reportable 10/31/21 04:59 Platelet Satelliting Not Reportable 10/31/21 04:59 Plt Morphology Comment Not Reportable 10/31/21 04:59 RBC Morphology Not Reportable 10/31/21 04:59 Dimorphic RBCs Not Reportable 10/31/21 04:59 Polychromasia Not Reportable 10/31/21 04:59 Hypochromasia 1+ 10/31/21 04:59 Poikilocytosis Not Reportable 10/31/21 04:59 Anisocytosis Not Reportable 10/31/21 04:59 Microcytosis Not Reportable 10/31/21 04:59 Macrocytosis Not Reportable 10/31/21 04:59 Spherocytes Not Reportable 10/31/21 04:59 Pappenheimer Bodies Not Reportable 10/31/21 04:59 Sickle Cells Not Reportable 10/31/21 04:59 Target Cells Not Reportable 10/31/21 04:59 Tear Drop Cells Not Reportable 10/31/21 04:59 Ovalocytes Not Reportable 10/31/21 04:59 Helmet Cells Not Reportable 10/31/21 04:59 [place] Bodies Not Reportable 10/31/21 04:59 [place] Rings Not Reportable 10/31/21 04:59 [place] Cells Not Reportable 10/31/21 04:59 Bite Cells Not Reportable 10/31/21 04:59 Crenated Cell Not Reportable 10/31/21 04:59 Elliptocytes Not Reportable 10/31/21 04:59 Acanthocytes (Spur) Not Reportable 10/31/21 04:59 Rouleaux Not Reportable 10/31/21 04:59 Hemoglobin C Crystals Not Reportable 10/31/21 04:59 Schistocytes Not Reportable 10/31/21 04:59 Malaria parasites Not Reportable 10/31/21 04:59 Jerry Bodies Not Reportable 10/31/21 04:59 Hem Pathologist Commnt No 10/31/21 04:59 PT 21.9 Sec. (12.2-14.9) H 11/03/21 04:39 INR 1.68 (0.87-1.13) H 11/03/21 04:39 APTT 29.0 Sec. (24.2-36.6) 10/29/21 19:04 ABG pH 7.489 pH Units (7.350-7.450) H 11/03/21 03:09 ABG pCO2 38.6 mm Hg 11/03/21 03:09 ABG pO2 131.9 mm Hg (80.0-90.0) H 11/03/21 03:09 ABG HCO3 28.7 mmol/L (20.0-26.0) H 11/03/21 03:09 ABG O2 Saturation 98.7 % (95.0-99.0) 11/03/21 03:09 ABG O2 Content 19.1 (0.0-44) 11/03/21 03:09 ABG Base Excess 5.1 mmol/L (-2.0-3.0) H 11/03/21 03:09 ABG Hemoglobin 14.0 gm/dl (14.0-18.0) 11/03/21 03:09 ABG Carboxyhemoglobin 1.8 % (0.0-5.0) 11/03/21 03:09 ABG Methemoglobin 0.5 % (0.0-1.5) 11/03/21 03:09 Oxyhemoglobin 96.5 % (95.0-99.0) 11/03/21 03:09 FiO2 40 % 11/03/21 03:09 Sodium 141 mmol/L (137-145) 11/03/21 04:39 Potassium 3.7 mmol/L (3.6-5.0) 11/03/21 04:39 Chloride 94.1 mmol/L (98-107) L 11/03/21 04:39 Carbon Dioxide 27 mmol/L (22-30) 11/03/21 04:39 Anion Gap 24 mmol/L 11/03/21 04:39 BUN 122 mg/dL (9-20) H 11/03/21 04:39 Creatinine 2.9 mg/dL (0.8-1.3) H 11/03/21 04:39 Estimated GFR 28 ml/min 11/03/21 04:39 BUN/Creatinine Ratio 42 % 11/03/21 04:39 Glucose 130 mg/dL (75-100) H 11/03/21 04:39 POC Glucose 163 mg/dL (70-105) H 11/03/21 06:04 Calcium 9.2 mg/dL (8.4-10.2) 11/03/21 04:39 Magnesium 2.90 mg/dL (1.7-2.3) H 11/02/21 Unknown Total Bilirubin 8.80 mg/dL (0.1-1.2) H 11/03/21 04:39 Direct Bilirubin 4.9 mg/dL (0-0.2) H 11/03/21 04:39 Indirect Bilirubin 3.9 mg/dL 11/03/21 04:39 AST 115 units/L (5-40) H 11/03/21 04:39 ALT 138 units/L (7-56) H 11/03/21 04:39 Alkaline Phosphatase 88 units/L (35-129) 11/03/21 04:39 Ammonia 62.0 umol/L (25-60) H 11/03/21 04:39 Total Creatine Kinase 1594 units/L (55-170) H 11/01/21 07:51 NT-Pro-B Natriuret Pep 83687 pg/mL (0-900) H 10/29/21 19:04 Total Protein 6.2 g/dL (6.3-8.2) L 11/03/21 04:39 Albumin 4.3 g/dL (3.9-5) 11/03/21 04:39 Albumin/Globulin Ratio 2.3 % 11/03/21 04:39 TSH 2.670 mlU/mL (0.270-4.200) 10/29/21 19:04 PTH Intact 170.9 pg/mL (15-65) H 10/31/21 04:59 Urine Color Straw (Yellow) 10/30/21 00:29 Urine Turbidity Clear (Clear) 10/30/21 00:29 Urine pH 7.0 (5.0-7.0) 10/30/21 00:29 Ur Specific [place] 1.030 (1.003-1.030) 10/30/21 00:29 Urine Protein 100 mg/dl mg/dL (Negative) 10/30/21 00:29 Urine Glucose (UA) Negative mg/dL (Negative) 10/30/21 00:29 Urine Ketones Negative mg/dL (Negative) 10/30/21 00:29 Urine Blood Negative (Negative) 10/30/21 00: Urine Nitrite Negative (Negative) 10/30/21 00:29 Ur Reducing Substances Not Reportable 10/30/21 00:29 Urine Bilirubin Negative (Negative) 10/30/21 00:29 Urine Ictotest Not Reportable 10/30/21 00: Urine Urobilinogen 0.0 mg/dL (<2.0) 10/30/21 00:29 Ur Leukocyte Esterase 1+ (Negative) 10/30/21 00:29 Urine WBC (Auto) 3.0 /HPF (0.0-6.0) 10/30/21 00: Urine RBC (Auto) 5.0 /HPF (0.0-6.0) 10/30/21 00:29 U Epithel Cells (Auto) 1.0 /HPF (0-13.0) 10/30/21 00: Hyaline Casts 4 /LPF 10/30/21 00:29 Urine Mucus Few /HPF 10/30/21 00:29 Urine Osmolality 339 Mosm/kg 10/30/21 00:29 Urine Creatinine 36.1 mg/dL (0.1-20.0) H 10/30/21 00:29 Urine Sodium 66 mmol/L 10/30/21 00:29 Salicylates < 0.3 mg/dL (2.8-20.0) L 10/29/21 19:04 Acetaminophen 5.0 ug/mL (10.0-30.0) L 10/29/21 19:04 Plasma/Serum Alcohol < 0.01 % (0-0.07) 10/29/21 19:04 Hepatitis A IgM Ab Non-reactive (NonReactive) 10/29/21 19:04 Hep Bs Antigen Non-reactive (Negative) 10/29/21 19:04 Hep B Core IgM Ab Non-reactive (NonReactive) 10/29/21 19:04 Hepatitis C Antibody Non-reactive (NonReactive) 10/29/21 19:04 Wu/IV: Voiding Method Indwelling Catheter Active Medications - Current Medications Current Medications: Generic Name Dose Route Start Last Admin Trade Name Freq PRN Reason Stop Dose Admin Acetaminophen 650 mg 11/01/21 12:39 Acetaminophen 325 Mg Tab PO Q6H PRN Pain MILD(1-3)/Fever >100.5/MILTON Albuterol 2.5 mg 10/30/21 00:44 Albuterol 2.5 Mg/3 Ml Nebu IH Q3HRT PRN Shortness Of Breath Amlodipine Besylate 10 mg 11/04/21 11:00 Amlodipine 10 Mg Tab FEEDTUBE QDAY CAROL Chlordiazepoxide HCl 10 mg 11/03/21 11:35 Chlordiazepoxide 5 Mg Cap FEEDTUBE Q6H PRN Anxiety/AGITATION Clonidine HCl 0.1 mg 11/02/21 10:00 11/03/21 09:32 Clonidine 0.1 Mg Tab FEEDTUBE 0.1 mg DAILY CAROL Administration Furosemide 40 mg 11/02/21 10:00 11/03/21 06:51 Furosemide 40 Mg/4 Ml Inj IV 40 mg 0600,1800 CAROL Administration Hydralazine HCl 10 mg 10/30/21 00:35 11/02/21 16:04 Hydralazine 20 Mg/1 Ml Inj IV 10 mg Q6H PRN Administration SBP >/=170; DBP >/=110 Hydralazine HCl 25 mg 11/03/21 14:00 Hydralazine 25 Mg Tab FEEDTUBE Q8HR CAROL Dextrose 1,000 mls @ 42 mls/hr 11/02/21 18:00 11/02/21 18:36 D5w IV 42 mls/hr DIRECT CAROL Administration Labetalol HCl 10 mg 10/30/21 08:51 10/30/21 09:25 Labetalol 20 Mg/4 Ml Inj IV 10 mg Q4HR PRN Administration sbp>160 Lactulose 20 gm 11/04/21 10:00 Lactulose 20 Gm/30 Ml Oral Liqd FEEDTUBE DAILY CAROL Lansoprazole 30 mg 11/03/21 10:00 11/03/21 09:32 Lansoprazole 30 Mg Solutab FEEDTUBE 30 mg QDAY CAROL Administration Naloxone HCl 0.4 mg 11/02/21 15:35 11/02/21 16:00 Naloxone 0.4 Mg/1 Ml Inj IV 0.4 mg ONCE CAROL Administration Ondansetron HCl 4 mg 10/30/21 00:44 Ondansetron 4 Mg/2 Ml Inj IV Q8H PRN Nausea And Vomiting Rifaximin 550 mg 11/02/21 10:00 11/03/21 09:32 Rifaximin 550 Mg Tab FEEDTUBE 550 mg BID CAROL Administration Sodium Chloride 10 ml 10/30/21 10:00 11/03/21 09:33 Sodium Chloride 0.9% 10 Ml Flush Syringe IV 10 ml BID CAROL Administration Sodium Chloride 10 ml 10/30/21 00:44 Sodium Chloride 0.9% 10 Ml Flush Syringe IV PRN PRN LINE FLUSH Nutrition/Malnutrition Assess - Dietary Evaluation Nutrition/Malnutrition Findings: Nutrition Notes Start: 10/30/21 09:50 Freq: Status: Active Protocol: Document 10/30/21 09:50 CRISTIANE (Rec: 10/30/21 09:55 CRISTIANE [id number]) Nutrition Notes Need for Assessment generated from: MD Order,Education Current Diagnosis Acute Kidney Injury, Hypertension,Heart Failure Other Pertinent Diagnosis Hypertensive emergency, Uremia , Volume overload, Metabolic encephalopathy Current Diet Cardiac Labs/Tests (10/29/21) BUN 110 Cr 3.1 tBili 5.8 BNP 92690 Pertinent Medications Lasix Height 5 ft 8 in Weight 92.079 kg Long Bottom Body Weight (kg) 70.00 BMI 30.9 Weight change and time frame Current wt likely sec to fluid overload Weight Status Obese Subjective/Other Information RD consulted for diet education. Pt in ED at this time. Pt admitted with BP of 179/140; BP remains elevated this am. Nephrology following ; GI consulted. PMHx includes EtOH dependence and cirrhosis . Burn Absent Trauma Absent Minimum of two criteria No Nutrition Intervention Follow-Up By: 11/04/21 Additional Comments F/U: intakes, BP, renal function, diet education needs <ALTAF ERNANDEZ - Last Filed: 11/04/21 07:18> Assessment and Plan Assessment and plan: I saw and evaluated the patient. I agree with the findings and the plan of care as documented in the Nurse Practitioner's~note, with the following corrections and additions. Hospitalist Physical - Constitutional Vitals: Temp Pulse Resp BP Pulse Ox 96.8 F L 68 10 L 188/121 98 11/04/21 04:00 11/04/21 07:00 11/04/21 07:00 11/04/21 07:00 11/04/21 07:00 Results - Labs CBC & Chem 7: 11/04/21 04:52 11/04/21 04:52 Labs: Laboratory Last Values WBC 18.8 K/mm3 (4.5-11.0) H 11/04/21 04:52 RBC 5.58 M/mm3 (3.65-5.03) H 11/04/21 04:52 Hgb 14.3 gm/dl (11.8-15.2) 11/04/21 04:52 Hct 44.7 % (35.5-45.6) 11/04/21 04:52 MCV 80 fl (84-94) L 11/04/21 04:52 MCH 26 pg (28-32) L 11/04/21 04:52 MCHC 32 % (32-34) 11/04/21 04:52 RDW 17.8 % (13.2-15.2) H 11/04/21 04:52 Plt Count 152 K/mm3 (140-440) 11/04/21 04:52 Lymph % (Auto) 4.5 % (13.4-35.0) L 11/01/21 07:51 [place] % (Auto) Head Of [employer] 11/01/21 07:51 Eos % (Auto) 0.4 % (0.0-4.3) 11/01/21 07:51 Baso % (Auto) 0.5 % (0.0-1.8) 11/01/21 07:51 Lymph # (Auto) 0.5 K/mm3 (1.2-5.4) L 11/01/21 07:51 [place] # (Auto) 0.6 K/mm3 (0.0-0.8) 11/01/21 07:51 Eos # (Auto) 0.0 K/mm3 (0.0-0.4) 11/01/21 07:51 Baso # (Auto) 0.0 K/mm3 (0.0-0.1) 11/01/21 07:51 Add Manual Diff Complete 10/31/21 04:59 Total Counted 100 10/31/21 04:59 Seg Neutrophils % Head Of [employer] 11/01/21 07:51 Seg Neuts % (Manual) 98.0 % (40.0-70.0) H 10/31/21 04:59 Band Neutrophils % 0 % 10/31/21 04:59 Lymphocytes % (Manual) 0 % (13.4-35.0) L 10/31/21 04:59 Reactive Lymphs % (Man) 0 % 10/31/21 04:59 Monocytes % (Manual) 2.0 % (0.0-7.3) 10/31/21 04:59 Eosinophils % (Manual) 0 % (0.0-4.3) 10/31/21 04:59 Basophils % (Manual) 0 % (0.0-1.8) 10/31/21 04:59 Metamyelocytes % 0 % 10/31/21 04:59 Myelocytes % 0 % 10/31/21 04:59 Promyelocytes % 0 % 10/31/21 04:59 Blast Cells % 0 % 10/31/21 04:59 Nucleated RBC % 2.0 % (0.0-0.9) H 10/31/21 04:59 Seg Neutrophils # 9.1 K/mm3 (1.8-7.7) H 11/01/21 07:51 Seg Neutrophils # Man 12.2 K/mm3 (1.8-7.7) H 10/31/21 04:59 Band Neutrophils # 0.0 K/mm3 10/31/21 04:59 Lymphocytes # (Manual) 0.0 K/mm3 (1.2-5.4) L 10/31/21 04:59 Abs React Lymphs (Man) 0.0 K/mm3 10/31/21 04:59 Monocytes # (Manual) 0.2 K/mm3 (0.0-0.8) 10/31/21 04:59 Eosinophils # (Manual) 0.0 K/mm3 (0.0-0.4) 10/31/21 04:59 Basophils # (Manual) 0.0 K/mm3 (0.0-0.1) 10/31/21 04:59 Metamyelocytes # 0.0 K/mm3 10/31/21 04:59 Myelocytes # 0.0 K/mm3 10/31/21 04:59 Promyelocytes # 0.0 K/mm3 10/31/21 04:59 Blast Cells # 0.0 K/mm3 10/31/21 04:59 WBC Morphology Not Reportable 10/31/21 04:59 Hypersegmented Neuts Not Reportable 10/31/21 04:59 Hyposegmented Neuts Not Reportable 10/31/21 04:59 Hypogranular Neuts Not Reportable 10/31/21 04:59 Smudge Cells Not Reportable 10/31/21 04:59 Toxic Granulation Not Reportable 10/31/21 04:59 Toxic Vacuolation Not Reportable 10/31/21 04:59 Dohle Bodies Not Reportable 10/31/21 04:59 Pelger-Huet Anomaly Not Reportable 10/31/21 04:59 Osmar Rods Not Reportable 10/31/21 04:59 Platelet Estimate Consistent w auto 10/31/21 04:59 Clumped Platelets Not Reportable 10/31/21 04:59 Plt Clumps, EDTA Not Reportable 10/31/21 04:59 Large Platelets Not Reportable 10/31/21 04:59 Giant Platelets Not Reportable 10/31/21 04:59 Platelet Satelliting Not Reportable 10/31/21 04:59 Plt Morphology Comment Not Reportable 10/31/21 04:59 RBC Morphology Not Reportable 10/31/21 04:59 Dimorphic RBCs Not Reportable 10/31/21 04:59 Polychromasia Not Reportable 10/31/21 04:59 Hypochromasia 1+ 10/31/21 04:59 Poikilocytosis Not Reportable 10/31/21 04:59 Anisocytosis Not Reportable 10/31/21 04:59 Microcytosis Not Reportable 10/31/21 04:59 Macrocytosis Not Reportable 10/31/21 04:59 Spherocytes Not Reportable 10/31/21 04:59 Pappenheimer Bodies Not Reportable 10/31/21 04:59 Sickle Cells Not Reportable 10/31/21 04:59 Target Cells Not Reportable 10/31/21 04:59 Tear Drop Cells Not Reportable 10/31/21 04:59 Ovalocytes Not Reportable 10/31/21 04:59 Helmet Cells Not Reportable 10/31/21 04:59 [place] Bodies Not Reportable 10/31/21 04:59 [place] Rings Not Reportable 10/31/21 04:59 [place] Cells Not Reportable 10/31/21 04:59 Bite Cells Not Reportable 10/31/21 04:59 Crenated Cell Not Reportable 10/31/21 04:59 Elliptocytes Not Reportable 10/31/21 04:59 Acanthocytes (Spur) Not Reportable 10/31/21 04:59 Rouleaux Not Reportable 10/31/21 04:59 Hemoglobin C Crystals Not Reportable 10/31/21 04:59 Schistocytes Not Reportable 10/31/21 04:59 Malaria parasites Not Reportable 10/31/21 04:59 Jerry Bodies Not Reportable 10/31/21 04:59 Hem Pathologist Commnt No 10/31/21 04:59 PT 21.9 Sec. (12.2-14.9) H 11/03/21 04:39 INR 1.68 (0.87-1.13) H 11/03/21 04:39 APTT 29.0 Sec. (24.2-36.6) 10/29/21 19:04 ABG pH 7.489 pH Units (7.350-7.450) H 11/03/21 03:09 ABG pCO2 38.6 mm Hg 11/03/21 03:09 ABG pO2 131.9 mm Hg (80.0-90.0) H 11/03/21 03:09 ABG HCO3 28.7 mmol/L (20.0-26.0) H 11/03/21 03:09 ABG O2 Saturation 98.7 % (95.0-99.0) 11/03/21 03:09 ABG O2 Content 19.1 (0.0-44) 11/03/21 03:09 ABG Base Excess 5.1 mmol/L (-2.0-3.0) H 11/03/21 03:09 ABG Hemoglobin 14.0 gm/dl (14.0-18.0) 11/03/21 03:09 ABG Carboxyhemoglobin 1.8 % (0.0-5.0) 11/03/21 03:09 ABG Methemoglobin 0.5 % (0.0-1.5) 11/03/21 03:09 Oxyhemoglobin 96.5 % (95.0-99.0) 11/03/21 03:09 FiO2 40 % 11/03/21 03:09 Sodium 149 mmol/L (137-145) H D 11/04/21 04:52 Potassium 2.7 mmol/L (3.6-5.0) L* D 11/04/21 04:52 Chloride 98.6 mmol/L (98-107) 11/04/21 04:52 Carbon Dioxide 34 mmol/L (22-30) H D 11/04/21 04:52 Anion Gap 19 mmol/L 11/04/21 04:52 BUN 119 mg/dL (9-20) H 11/04/21 04:52 Creatinine 2.3 mg/dL (0.8-1.3) H 11/04/21 04:52 Estimated GFR 36 ml/min 11/04/21 04:52 BUN/Creatinine Ratio 52 % 11/04/21 04:52 Glucose 128 mg/dL (75-100) H 11/04/21 04:52 POC Glucose 147 mg/dL (70-105) H 11/03/21 23:57 Calcium 9.2 mg/dL (8.4-10.2) 11/04/21 04:52 Phosphorus 4.30 mg/dL (2.5-4.5) 11/04/21 04:52 Magnesium 2.30 mg/dL (1.7-2.3) 11/04/21 04:52 Total Bilirubin 10.00 mg/dL (0.1-1.2) H 11/04/21 04:52 Direct Bilirubin 4.9 mg/dL (0-0.2) H 11/03/21 04:39 Indirect Bilirubin 3.9 mg/dL 11/03/21 04:39 AST 103 units/L (5-40) H 11/04/21 04:52 ALT 138 units/L (7-56) H 11/04/21 04:52 Alkaline Phosphatase 117 units/L (35-129) 11/04/21 04:52 Ammonia 62.0 umol/L (25-60) H 11/03/21 04:39 Total Creatine Kinase 1594 units/L (55-170) H 11/01/21 07:51 NT-Pro-B Natriuret Pep 82951 pg/mL (0-900) H 10/29/21 19:04 Total Protein 6.0 g/dL (6.3-8.2) L 11/04/21 04:52 Albumin 4.2 g/dL (3.9-5) 11/04/21 04:52 Albumin/Globulin Ratio 2.3 % 11/04/21 04:52 TSH 2.670 mlU/mL (0.270-4.200) 10/29/21 19:04 PTH Intact 170.9 pg/mL (15-65) H 10/31/21 04:59 Urine Color Straw (Yellow) 10/30/21 00:29 Urine Turbidity Clear (Clear) 10/30/21 00:29 Urine pH 7.0 (5.0-7.0) 10/30/21 00:29 Ur Specific [place] 1.030 (1.003-1.030) 10/30/21 00: Urine Protein 100 mg/dl mg/dL (Negative) 10/30/21 00: Urine Glucose (UA) Negative mg/dL (Negative) 10/30/21: Urine Ketones Negative mg/dL (Negative) 10/30/21 00: Urine Blood Negative (Negative) 10/30/21 00: Urine Nitrite Negative (Negative) 10/30/21 00: Ur Reducing Substances Not Reportable 10/30/21 00: Urine Bilirubin Negative (Negative) 10/30/21 00: Urine Ictotest Not Reportable 10/30/21 00: Urine Urobilinogen 0.0 mg/dL (<2.0) 10/30/21 00:29 Ur Leukocyte Esterase 1+ (Negative) 10/30/21 00:29 Urine WBC (Auto) 3.0 /HPF (0.0-6.0) 10/30/21 00: Urine RBC (Auto) 5.0 /HPF (0.0-6.0) 10/30/21 00: U Epithel Cells (Auto) 1.0 /HPF (0-13.0) 10/30/21 00:29 Hyaline Casts 4 /LPF 10/30/21 00:29 Urine Mucus Few /HPF 10/30/21 00:29 Urine Osmolality 339 Mosm/kg 10/30/21 00:29 Urine Creatinine 36.1 mg/dL (0.1-20.0) H 10/30/21 00:29 Urine Sodium 66 mmol/L 10/30/21 00:29 Salicylates < 0.3 mg/dL (2.8-20.0) L 10/29/21 19:04 Acetaminophen 5.0 ug/mL (10.0-30.0) L 10/29/21 19:04 Plasma/Serum Alcohol < 0.01 % (0-0.07) 10/29/21 19:04 Complement C3 88 mg/dL (82-185) 10/31/21 04:59 Complement C4 25 mg/dL (15-53) 10/31/21 04:59 Hepatitis A IgM Ab Non-reactive (NonReactive) 10/29/21 19:04 Hep Bs Antigen Non-reactive (Negative) 10/29/21 19:04 Hep B Core IgM Ab Non-reactive (NonReactive) 10/29/21 19:04 Hepatitis C Antibody Non-reactive (NonReactive) 10/29/21 19:04 Wu/IV: Voiding Method Indwelling Catheter Active Medications - Current Medications Current Medications: Generic Name Dose Route Start Last Admin Trade Name Freq PRN Reason Stop Dose Admin Acetaminophen 650 mg 11/01/21 12:39 Acetaminophen 325 Mg Tab PO Q6H PRN Pain MILD(1-3)/Fever >100.5/MILTON Albuterol 2.5 mg 10/30/21 00:44 Albuterol 2.5 Mg/3 Ml Nebu IH Q3HRT PRN Shortness Of Breath Amlodipine Besylate 10 mg 11/04/21 11:00 Amlodipine 10 Mg Tab FEEDTUBE QDAY CAROL Chlordiazepoxide HCl 10 mg 11/03/21 11:35 11/03/21 22:36 Chlordiazepoxide 5 Mg Cap FEEDTUBE 10 mg Q6H PRN Administration Anxiety/AGITATION Clonidine HCl 0.1 mg 11/02/21 10:00 11/03/21 09:32 Clonidine 0.1 Mg Tab FEEDTUBE 0.1 mg DAILY CAROL Administration Furosemide 40 mg 11/02/21 10:00 11/04/21 06:15 Furosemide 40 Mg/4 Ml Inj IV 40 mg 0600,1800 CAROL Administration Hydralazine HCl 10 mg 10/30/21 00:35 11/04/21 03:30 Hydralazine 20 Mg/1 Ml Inj IV 10 mg Q6H PRN Administration SBP >/=170; DBP >/=110 Hydralazine HCl 25 mg 11/03/21 14:00 11/04/21 06:15 Hydralazine 25 Mg Tab FEEDTUBE Not Given Q8HR CAROL Potassium Chloride 10 meq in 100 mls @ 100 mls/hr 11/04/21 07:00 Kcl 10meq/100ml IV 11/04/21 10:59 Q1H CAROL Labetalol HCl 10 mg 10/30/21 08:51 10/30/21 09:25 Labetalol 20 Mg/4 Ml Inj IV 10 mg Q4HR PRN Administration sbp>160 Lactulose 20 gm 11/04/21 10:00 Lactulose 20 Gm/30 Ml Oral Liqd FEEDTUBE DAILY CAROL Lansoprazole 30 mg 11/03/21 10:00 11/03/21 09:32 Lansoprazole 30 Mg Solutab FEEDTUBE 30 mg QDAY CAROL Administration Naloxone HCl 0.4 mg 11/02/21 15:35 11/02/21 16:00 Naloxone 0.4 Mg/1 Ml Inj IV 0.4 mg ONCE CAROL Administration Ondansetron HCl 4 mg 10/30/21 00:44 Ondansetron 4 Mg/2 Ml Inj IV Q8H PRN Nausea And Vomiting Rifaximin 550 mg 11/02/21 10:00 11/03/21 21:09 Rifaximin 550 Mg Tab FEEDTUBE 550 mg BID CAROL Administration Sodium Chloride 10 ml 10/30/21 10:00 11/03/21 22:03 Sodium Chloride 0.9% 10 Ml Flush Syringe IV 10 ml BID CAROL Administration Sodium Chloride 10 ml 10/30/21 00:44 Sodium Chloride 0.9% 10 Ml Flush Syringe IV PRN PRN LINE FLUSH Nutrition/Malnutrition Assess - Dietary Evaluation Nutrition/Malnutrition Findings: Nutrition Notes Start: 10/30/21 09:50 Freq: Status: Active Protocol: Document 11/03/21 14:17 LALA (Rec: 11/03/21 14:53 LALA [id number]) Nutrition Notes Need for Assessment generated from: MD Order Initial or Follow up Assessment Current Diagnosis Acute Kidney Injury, Hypertension,Heart Failure, Respiratory Failure Other Pertinent Diagnosis Cirrhosis/Ascites, Hepatic Encephalopathy, HFrEF, Rabdomyolisis, EtOH Abuse Current Diet TF-Nepro w/CARBSTEADY @ 40 ml/ hr (from D 11/03). Labs/Tests 11/03: Cl 94.1, BUN 122, Crea 2.9, Glu 130, Mg 2.9. Pertinent Medications 11/03: D5w @ 42ml/hr, others nutritionally unremarkable. Height 5 ft 8 in Weight 92.079 kg Long Bottom Body Weight (kg) 70.00 BMI 30.9 Intake Prior to Admission Good Weight change and time frame Pt states having loss body weight [employer]. No body weight change reported in 4 days. Weight Status Obese Subjective/Other Information RD consult for write/manage TF assessment. Pt currently on NPO. Pt responsiveness is minimal, continues on CIWA protocol, remains very lethargic, according to Progress notes. I will prescribe TF to provide Pt with energy/protein needs during LOS. Pt is on NIV/Bi-PaP+, O2 saturation @ 100%, according to Physical Assessment History notes. Pt presents bilateral-LE Pitting Edema 2+, according to Physical Assessment History notes. Pt is swallow impaired, according to Physical Assessment History notes. Percent of energy/protein needs met: Pt currently on NPO. Prescribed TF-Nepro w/ CARBSTEADY @ 40 ml/hr provides for energy/protein needs (1, 745 Kcal/79 g) during LOS, 95% Kcal; 100% AA. Burn Absent Trauma Absent GI Symptoms None Difficulty In Swallowing Food Allergy No Current % PO Other Minimum of two criteria No Fluid Accumulation Moderate to Severe (severe) Reduced Cardiovascular Rn Strength N/A (non-severe) Protein-Calorie Malnutrition N\A #1 Nutrition Diagnosis Swallowing difficulty Etiology Possibly Hepatic Encephalopathy. As Evidenced by Signs and Symptoms Pt currently on NPO. Is patient on ventilator? No Is Patient Ambulatory and/or Out of Bed No REE-([facility]-confined to bed) 2092.332 Kcal/Kg value to use for calculation 20 Approximate Energy Requirements Using 1842 kcal/Kg Calculation Used for Recommendations Kcal/kg Additional Notes Protein: 0.8-1.2 g/Kg AdjBW; 65-81 g/day. Fluids: 1 ml/Kcal, or as per MD. Nutrition Intervention Nutrition Support: Start TF-Nepro w/CARBSTEADY @ 40 ml/hr. Flush: 190 ml water Q 4 hr, or as per MD. Kcal 1,745 Protein (gm) 79 Carbohydrates (gm) 156 Fat (gm) 93 Fluid (mL) 705 Fiber (gm) 12 % RDI: 95% Kcal; 100% AA. Goal #1 Provide at least 75% of energy /protein needs through Enteral Feeding during LOS. Follow-Up By: 11/05/21 Additional Comments Start monitoring TF tolerance and BM.
--- NOTE | 2021-11-03 12:33 | Progress Note ---
Assessment and Plan Patient is a 51-year-old male with a past medical history of EtOH abuse, hypertension, achalasia, cardiomyopathy and medical noncompliance who presents to the ED with a complaint of AMS. AMS Acute respiratory failure Hypertensive urgency Acute on chronic HFrEF TRUONG-nephrology following Volume overload Cirrhosis-GI following EtOH abuse Hypokalemia Echo 10/31/2021-EF 20 to 25%. Grade 3 diastolic dysfunction with elevated LV filling pressures. Flattening of interventricular septum suggestive of RV volume overload. RV is dilated. Left atrium mildly dilated. Echo 01/06/2014-EF 40 to 45%. Mild concentric LVH. Left atrium is mildly dilated. Right ventricle systolic function normal Lexiscan MPI 01/07/2014-small mild reversible inferolateral basal defect. Moderate global LV hypokinesis. LVEF 40% Plan: Due to patient's mental status and other comorbidities will plan for conservative management at this time. Volume overloaded on exam with bilateral lower extremity edema. Patient currently on IV Lasix for diuresis. Will defer to nephrology for volume management due to renal No COLBY or ARB due to renal function Per documentation patient was on beta-yenifer and became bradycardic. Furthermore patient heart rate in upper 50s to low 60s will continue to hold beta-yenifer at this time Patient currently on amlodipine, clonidine, hydralizine Patient remians hypertensive will increase amlodipine to 10mg PO QD and hydralazine 25 mg p.o. 3 times daily Will hold statin due to elevated liver enzymes Patient appears to have several different MRNs Patient on CIWA protocol Patient seen in conjunction with Dr. Perez who agrees with plan of care 30 minutes critical care time spent in care coordination of patient - Patient Problems (1) Hypertensive urgency Current Visit: Yes Status: Acute (2) Volume overload Current Visit: Yes Status: Acute (3) Renal insufficiency Current Visit: Yes Status: Acute (4) Uremia Current Visit: Yes Status: Acute (5) Elevated CK Current Visit: Yes Status: Acute (6) Altered mental status Current Visit: Yes Status: Acute (7) Alcoholic cirrhosis of liver with ascites Current Visit: Yes Status: Acute (8) Acute on chronic HFrEF (heart failure with reduced ejection fraction) Current Visit: Yes Status: Acute Subjective Date of service: 11/03/21 Principal diagnosis: Cirrhosis Interval history: Patient orlin altered mental status on continuous BiPAP Sinus bradycardia to sinus rhythm high 50s to 60s on monitor Objective Vital Signs Temp Pulse Pulse Resp BP Pulse Ox 11/03/21 12:15 55 L 21 160/105 97 11/03/21 11:47 59 L 16 100 11/03/21 11:44 96.3 F L 11/03/21 11:00 56 L 14 162/110 97 11/03/21 10:00 57 L 12 152/108 97 11/03/21 09:32 59 L 153/109 11/03/21 09:00 58 L 14 147/118 95 11/03/21 08:00 53 L 26 H 157/120 96 11/03/21 07:54 55 L 11 L 100 11/03/21 07:49 96.7 F L 11/03/21 07:00 59 L 16 155/128 97 11/03/21 06:52 58 L 149/110 11/03/21 06:00 57 L 14 153/113 95 11/03/21 05:00 58 L 14 159/117 88 11/03/21 04:00 96.6 F L 58 L 58 L 14 145/108 100 11/03/21 03:44 58 L 25 H 158/124 100 11/03/21 03:00 58 L 12 155/126 97 11/03/21 02:00 61 12 163/132 11/03/21 01:00 57 L 11 L 152/107 100 11/03/21 00:00 96.4 F L 58 L 58 L 12 150/121 99 11/02/21 23:08 58 L 12 151/105 100 11/02/21 23:00 58 L 12 151/105 99 11/02/21 22:00 57 L 14 151/116 100 11/02/21 21:03 57 L 31 H 148/107 100 11/02/21 21:00 57 L 11 L 148/107 100 11/02/21 20:00 97.5 F L 59 L 16 152/119 99 11/02/21 19:00 59 L 15 154/122 97 11/02/21 18:00 57 L 19 155/101 99 11/02/21 17:05 98.4 F 11/02/21 17:00 61 12 145/113 100 11/02/21 16:04 60 158/117 11/02/21 16:00 59 L 14 158/117 100 11/02/21 15:00 59 L 16 145/112 100 11/02/21 14:57 58 L 158/112 11/02/21 14:00 57 L 15 148/110 11/02/21 13:00 59 L 23 141/120 99 - Physical Examination General: Other (Altered mental status currently on BiPAP) HEENT: Positive: Jaundice Neck: Positive: trachea midline, JVD/HJR Cardiac: Positive: Reg Rate and Rhythm Lungs: Positive: Rhonchi Neuro: Positive: Grossly Intact Abdomen: Positive: Ascites Skin: Positive: Cool Extremities: Present: upper extr. pulses, edema - Labs and Meds Cardiac Enzymes 11/03/21 Range/Units 04:39 AST 115 H (5-40) units/L Coagulation 11/03/21 Range/Units 04:39 PT 21.9 H (12.2-14.9) Sec. INR 1.68 H (0.87-1.13) CBC 11/03/21 Range/Units 04:39 WBC 16.1 H (4.5-11.0) K/mm3 RBC 5.36 H (3.65-5.03) M/mm3 Hgb 13.6 (11.8-15.2) gm/dl Hct 43.3 (35.5-45.6) % Plt Count 156 (140-440) K/mm3 Comprehensive Metabolic Panel 11/02/21 11/03/21 11/03/21 Range/Units Unknown 04:39 04:39 Sodium 140 141 (137-145) mmol/L Potassium 4.3 D 3.7 (3.6-5.0) mmol/L Chloride 93.0 L 94.1 L (98-107) mmol/L Carbon Dioxide 27 27 (22-30) mmol/L BUN 125 H 122 H (9-20) mg/dL Creatinine 3.2 H 2.9 H (0.8-1.3) mg/dL Glucose 135 H 130 H (75-100) mg/dL Calcium 9.5 9.2 (8.4-10.2) mg/dL Direct Bilirubin 4.9 H (0-0.2) mg/dL Indirect Bilirubin 3.9 mg/dL AST 115 H (5-40) units/L ALT 138 H (7-56) units/L Alkaline Phosphatase 88 (35-129) units/L Total Protein 6.2 L (6.3-8.2) g/dL Albumin 4.3 (3.9-5) g/dL - Imaging and Cardiology Echo: report reviewed - Telemetry EKG Rhythm: Sinus Rhythm - EKG Sinus rhythms and dysrhythmias: sinus rhythm Chamber hypertrophy or enlargement: left ventricular hypertro
[2021-11-03] MEDS: hydrALAZINE 25 MG TAB FEEDTUBE SCH ×2 (13:21→21:09)
--- NOTE | 2021-11-03 19:44 | Progress Note ---
Assessment and Plan # Acute Kidney Injury: suspect underlying CKD in setting of HTN. Cannot rule out cardio-renal and/or hepatorenal changes. Cr and UOP improving. 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 May benefit from echocardiogram given history of uncontrolled HTN, potential cardiac effects and hepatic congestion # HTN: Agree with antihypertensives, recommend avoiding clonidine given current mental status # Alcohol Hepatitis, Likely Cirrhosis: ultrasound pending, GI consult noted Subjective Date of service: 11/03/21 Principal diagnosis: Cirrhosis Interval history: Seen in ICU. Slightly more alert today. Good UOP Objective - Exam Narrative Exam: Constitutional: no acute distress Head: NC/AT Neck: supple Lungs: On bipap CV: RRR, no M/R/G Abdomen: soft, non-tender, bowel sounds present Back: nontender Extremities: LE edema, pulses WNL Skin: intact Neuro: Confused - Vital Signs Vital signs: Vital Signs - 12hr 11/03/21 11/03/21 11/03/21 07:49 07:54 08:00 Temperature 96.7 F L Pulse Rate 53 L Pulse Rate [ 55 L From Monitor] Respiratory 11 L 26 H Rate Blood Pressure 157/120 O2 Sat by Pulse 100 96 Oximetry 11/03/21 11/03/21 11/03/21 09:00 09:32 10:00 Temperature Pulse Rate 58 L 59 L 57 L Pulse Rate [ From Monitor] Respiratory 14 12 Rate Blood Pressure 147/118 153/109 152/108 O2 Sat by Pulse 95 97 Oximetry 11/03/21 11/03/21 11/03/21 11:00 11:44 11:47 Temperature 96.3 F L Pulse Rate 56 L Pulse Rate [ 59 L From Monitor] Respiratory 14 16 Rate Blood Pressure 162/110 O2 Sat by Pulse 97 100 Oximetry 11/03/21 11/03/21 11/03/21 12:00 12:15 13:00 Temperature Pulse Rate 57 L 55 L 56 L Pulse Rate [ From Monitor] Respiratory 12 21 14 Rate Blood Pressure 160/105 160/105 159/119 O2 Sat by Pulse 93 97 98 Oximetry 11/03/21 11/03/21 11/03/21 13:21 14:00 15:00 Temperature Pulse Rate 55 L 54 L 58 L Pulse Rate [ From Monitor] Respiratory 11 L 13 Rate Blood Pressure 159/119 164/104 163/119 O2 Sat by Pulse 93 93 Oximetry 11/03/21 11/03/21 11/03/21 16:00 16:16 16:29 Temperature 96.3 F L Pulse Rate Pulse Rate [ 59 L From Monitor] Respiratory 13 Rate Blood Pressure 160/132 O2 Sat by Pulse 94 100 Oximetry 11/03/21 11/03/21 11/03/21 16:32 17:00 18:00 Temperature Pulse Rate 60 61 60 Pulse Rate [ From Monitor] Respiratory 37 H 12 9 L Rate Blood Pressure 138/113 138/113 138/97 O2 Sat by Pulse 99 96 99 Oximetry - Lab 11/03/21 04:39 11/03/21 04:39 Most recent lab results ABG pH 7.489 pH Units (7.350-7.450) H 11/03/21 03:09 ABG pCO2 38.6 mm Hg 11/03/21 03:09 ABG pO2 131.9 mm Hg (80.0-90.0) H 11/03/21 03:09 ABG HCO3 28.7 mmol/L (20.0-26.0) H 11/03/21 03:09 ABG O2 Saturation 98.7 % (95.0-99.0) 11/03/21 03:09 Calcium 9.2 mg/dL (8.4-10.2) 11/03/21 04:39 Magnesium 2.90 mg/dL (1.7-2.3) H 11/02/21 Unknown Urine Creatinine 36.1 mg/dL (0.1-20.0) H 10/30/21 00:29 Urine Sodium 66 mmol/L 10/30/21 00:29 Medications & Allergies - Medications Allergies/Adverse Reactions: Allergies No Known Allergies Allergy (Unverified 11/02/21 15:49) Home Medications: Home Medications Medication Instructions Recorded Confirmed Last Taken Type Furosemide [Lasix] 20 mg PO QDAY #30 tablet 09/22/21 Unknown Rx Lisinopril [Zestril] 5 mg PO DAILY #30 09/22/21 Unknown Rx Metoprolol [Lopressor TAB] 25 mg PO BID #60 tablet 09/22/21 Unknown Rx Pantoprazole [Protonix TAB] 20 mg PO QDAY #30 tablet. 09/22/21 Unknown Rx Potassium Chloride [K-Dur] 10 meq PO QDAY #30 09/22/21 Unknown Rx Simvastatin 10 mg PO QHS #30 09/22/21 Unknown Rx Active Medications: Generic Name Dose Route Start Last Admin Trade Name Freq PRN Reason Stop Dose Admin Acetaminophen 650 mg 11/01/21 12:39 Acetaminophen 325 Mg Tab PO Q6H PRN Pain MILD(1-3)/Fever >100.5/MILTON Albuterol 2.5 mg 10/30/21 00:44 Albuterol 2.5 Mg/3 Ml Nebu IH Q3HRT PRN Shortness Of Breath Amlodipine Besylate 10 mg 11/04/21 11:00 Amlodipine 10 Mg Tab FEEDTUBE QDAY CAROL Chlordiazepoxide HCl 10 mg 11/03/21 11:35 Chlordiazepoxide 5 Mg Cap FEEDTUBE Q6H PRN Anxiety/AGITATION Clonidine HCl 0.1 mg 11/02/21 10:00 11/03/21 09:32 Clonidine 0.1 Mg Tab FEEDTUBE 0.1 mg DAILY CAROL Administration Furosemide 40 mg 11/02/21 10:00 11/03/21 18:08 Furosemide 40 Mg/4 Ml Inj IV 40 mg 0600,1800 CAROL Administration Hydralazine HCl 10 mg 10/30/21 00:35 11/02/21 16:04 Hydralazine 20 Mg/1 Ml Inj IV 10 mg Q6H PRN Administration SBP >/=170; DBP >/=110 Hydralazine HCl 25 mg 11/03/21 14:00 11/03/21 13:21 Hydralazine 25 Mg Tab FEEDTUBE 25 mg Q8HR CAROL Administration Labetalol HCl 10 mg 10/30/21 08:51 10/30/21 09:25 Labetalol 20 Mg/4 Ml Inj IV 10 mg Q4HR PRN Administration sbp>160 Lactulose 20 gm 11/04/21 10:00 Lactulose 20 Gm/30 Ml Oral Liqd FEEDTUBE DAILY CAROL Lansoprazole 30 mg 11/03/21 10:00 11/03/21 09:32 Lansoprazole 30 Mg Solutab FEEDTUBE 30 mg QDAY CAROL Administration Naloxone HCl 0.4 mg 11/02/21 15:35 11/02/21 16:00 Naloxone 0.4 Mg/1 Ml Inj IV 0.4 mg ONCE CAROL Administration Ondansetron HCl 4 mg 10/30/21 00:44 Ondansetron 4 Mg/2 Ml Inj IV Q8H PRN Nausea And Vomiting Rifaximin 550 mg 11/02/21 10:00 11/03/21 09:32 Rifaximin 550 Mg Tab FEEDTUBE 550 mg BID CAROL Administration Sodium Chloride 10 ml 10/30/21 10:00 11/03/21 09:33 Sodium Chloride 0.9% 10 Ml Flush Syringe IV 10 ml BID CAROL Administration Sodium Chloride 10 ml 10/30/21 00:44 Sodium Chloride 0.9% 10 Ml Flush Syringe IV PRN PRN LINE FLUSH
[2021-11-04] MEDS: hydrALAZINE 20 MG/1 ML INJ IV PRN (03:30)
[2021-11-04 05:04] LABS: Hematocrit 44.7 % (35.5-45.6); Hemoglobin 14.3 gm/dl (11.8-15.2); Mean Corpuscular HGB Conc 32 % (32-34); Mean Corpuscular Volume 80 fl (84-94); Platelet Count 152 K/mm3 (140-440); Red Blood Count 5.58 M/mm3 (3.65-5.03); Red Cell Distribution Width 17.8 % (13.2-15.2)
[2021-11-04 05:35] LABS: Albumin 4.2 g/dL (3.9-5); Calcium 9.2 mg/dL (8.4-10.2)
[2021-11-04] MEDS: FUROSEMIDE 40 MG/4 ML INJ IV SCH (06:15)
[2021-11-04] MEDS: hydrALAZINE 25 MG TAB FEEDTUBE SCH ×2 (06:15→22:49)
[2021-11-04] MEDS ORDERED: POTASSIUM CHLORIDE 10 MEQ 10 MEQ/100 ML BAG IV SCH (07:00)
[2021-11-04] MEDS: POTASSIUM CHLORIDE 10 MEQ 10 MEQ/100 ML BAG IV SCH ×6 (08:02→20:47)
--- NOTE | 2021-11-04 08:48 | Gastroenterology Progress Note ---
Assessment and Plan - Patient Problems (1) Altered mental status Current Visit: Yes Status: Acute Plan to address problem: - Likely combo of asterixis and DTs as well as severe uremia. - Will continue xifaxan and wean off lactulose given TRUONG and diarrhea (convert lactulose to QD on Monday). - Continue CIWA and clear liquids given somnolence; regular diet Monday if tolerates. - Stop all narcotics and benzos. - May need HD if uremia fails to improve. (2) TRUONG (acute kidney injury) Current Visit: Yes Status: Acute Plan to address problem: - Per renal service. - His baseline Cr appears to be 1.9 on labs from September (different MRN). - Urine output improving in last 24 hours with diuresis. (3) Alcoholic cirrhosis of liver with ascites Current Visit: Yes Status: Acute Plan to address problem: - Use diuretics with caution as per Renal, as I suspect developing HRS and CHF, but may also have TRUONG from his CHF/mild rhabdo/poorly controlled HTN. - Will continue MVI and protonix therapy. - Hepatitis serologies already negative; if Cr improves enough, would like to get a CT with IV contrast to assess for mass or vascular problem. - Discriminate function low but rising; will start low-dose steroids. - Will give IV albumin since on diuretics at present, for 9 doses (completed). (4) CHF (congestive heart failure) Current Visit: Yes Status: Acute Plan to address problem: - EF 20-25% this admit. - Flare and patient in the ICU on respiratory support/diuresis. Subjective Date of service: 11/04/21 Principal diagnosis: Cirrhosis Interval history: The patient is more alert today; he can respond to questions, and follow some commands. He pulled off his BiPAP but pOx remains above 92%. He has no blood in his stools. Extensive diuresis yesterday. Objective - Constitutional Vitals: Temp Pulse Resp BP Pulse Ox 97.7 F 68 10 L 188/121 99 11/04/21 08:39 11/04/21 07:00 11/04/21 07:00 11/04/21 07:00 11/04/21 08:11 General appearance: no acute distress - EENT Eyes: PERRL, EOM intact, scleral icterus - Respiratory Respiratory effort: normal Respiratory: bilateral: CTA - Cardiovascular Rhythm: regular Heart Sounds: Present: S1 & S2 - Gastrointestinal General gastrointestinal: Present: soft, non-tender, distended (Moderate ascites) - Neurologic Neurological: oriented to person, strength equal bilaterally, other (Able to follow some commands) - Labs CBC & Chem 7: 11/04/21 04:52 11/04/21 04:52 Labs: Laboratory Results - last 24 hr 10/31/21 10/31/21 11/03/21 04:59 04:59 04:39 WBC RBC Hgb Hct MCV MCH MCHC RDW Plt Count Sodium 141 Potassium 3.7 Chloride 94.1 L Carbon Dioxide 27 Anion Gap 24 BUN 122 H Creatinine 2.9 H Estimated GFR 28 BUN/Creatinine Ratio 42 Glucose 130 H POC Glucose Calcium 9.2 Phosphorus Magnesium Total Bilirubin AST ALT Alkaline Phosphatase Total Protein Albumin Albumin/Globulin Ratio Complement C3 88 Complement C4 25 11/03/21 11/03/21 11/03/21 11:54 17:25 23:57 WBC RBC Hgb Hct MCV MCH MCHC RDW Plt Count Sodium Potassium Chloride Carbon Dioxide Anion Gap BUN Creatinine Estimated GFR BUN/Creatinine Ratio Glucose POC Glucose 164 H 142 H 147 H Calcium Phosphorus Magnesium Total Bilirubin AST ALT Alkaline Phosphatase Total Protein Albumin Albumin/Globulin Ratio Complement C3 Complement C4 11/04/21 11/04/21 04:52 04:52 WBC 18.8 H RBC 5.58 H Hgb 14.3 Hct 44.7 MCV 80 L MCH 26 L MCHC 32 RDW 17.8 H Plt Count 152 Sodium 149 H D Potassium 2.7 L* D Chloride 98.6 Carbon Dioxide 34 H D Anion Gap 19 BUN 119 H Creatinine 2.3 H Estimated GFR 36 BUN/Creatinine Ratio 52 Glucose 128 H POC Glucose Calcium 9.2 Phosphorus 4.30 Magnesium 2.30 Total Bilirubin 10.00 H AST 103 H ALT 138 H Alkaline Phosphatase 117 Total Protein 6.0 L Albumin 4.2 Albumin/Globulin Ratio 2.3 Complement C3 Complement C4
--- NOTE | 2021-11-04 09:04 | XRay Report ---
ABDOMEN 1 VIEW INDICATION / CLINICAL INFORMATION: s/p dht placement. COMPARISON: KUB from 11/02/2021. FINDINGS: TUBES / LINES: A Dobbhoff tube has been placed that terminates over the gastric body. BOWEL GAS PATTERN: No significant abnormality. FREE AIR / EXTRALUMINAL GAS: None seen. ADDITIONAL FINDINGS: No significant additional findings. IMPRESSION: Dobbhoff tube as above. No acute abdominal findings. Signer Name: Bridger Gautam MD Signed: 11/04/2021 8:59 AM Workstation Name: [id number]
[2021-11-04] MEDS: cloNIDine 0.1 MG TAB FEEDTUBE SCH (09:27)
[2021-11-04] MEDS: LANSOPRAZOLE 30 MG SOLUTAB FEEDTUBE SCH (09:27)
[2021-11-04] MEDS: RIFAXIMIN 550 MG TAB FEEDTUBE SCH (09:28)
[2021-11-04] MEDS ORDERED: MULTIVITAMIN / MINERAL ORAL LIQUID 15 ML FEEDTUBE SCH (10:00)
[2021-11-04] MEDS ORDERED: LACTULOSE 20 GM/30 ML ORAL LIQD FEEDTUBE SCH (10:00)
[2021-11-04] MEDS ORDERED: predniSONE 5 MG TAB FEEDTUBE SCH (10:00)
[2021-11-04] MEDS ORDERED: amLODIPine 10 MG TAB FEEDTUBE SCH (11:00)
--- NOTE | 2021-11-04 12:11 | Progress Note ---
Assessment and Plan Patient is a 51-year-old male with a past medical history of EtOH abuse, hypertension, achalasia, cardiomyopathy and medical noncompliance who presents to the ED with a complaint of AMS. AMS Acute respiratory failure Hypertensive urgency Acute on chronic HFrEF TRUONG-nephrology following Volume overload Cirrhosis-GI following EtOH abuse Hypokalemia Echo 10/31/2021-EF 20 to 25%. Grade 3 diastolic dysfunction with elevated LV filling pressures. Flattening of interventricular septum suggestive of RV volume overload. RV is dilated. Left atrium mildly dilated. Echo 01/06/2014-EF 40 to 45%. Mild concentric LVH. Left atrium is mildly dilated. Right ventricle systolic function normal Lexiscan MPI 01/07/2014-small mild reversible inferolateral basal defect. Moderate global LV hypokinesis. LVEF 40% Plan: Due to patient's mental status and other comorbidities will plan for conservative management at this time. Volume overloaded on exam with bilateral lower extremity edema. Patient currently on IV Lasix for diuresis. Will defer to nephrology for volume management due to renal No COLBY or ARB due to renal function Per documentation patient was on beta-yenifer and became bradycardic. Furthermore patient heart rate in upper 50s to low 60s will continue to hold beta-yenifer at this time Currently on amlodipine 10 mg p.o. daily clonidine 0.1 mg p.o. daily Agree with increasing to hydralazine 50 mg p.o. 3 times daily Will hold statin due to elevated liver enzymes Patient appears to have several different MRNs Patient on CIWA protocol Patient seen in conjunction with Dr. Perez who agrees with plan of care 30 minutes critical care time spent in care coordination of patient - Patient Problems (1) Hypertensive urgency Current Visit: Yes Status: Acute (2) Volume overload Current Visit: Yes Status: Acute (3) Renal insufficiency Current Visit: Yes Status: Acute (4) Uremia Current Visit: Yes Status: Acute (5) Elevated CK Current Visit: Yes Status: Acute (6) Altered mental status Current Visit: Yes Status: Acute (7) Alcoholic cirrhosis of liver with ascites Current Visit: Yes Status: Acute (8) Acute on chronic HFrEF (heart failure with reduced ejection fraction) Current Visit: Yes Status: Acute Subjective Date of service: 11/04/21 Principal diagnosis: Cirrhosis Interval history: Patient remains with altered mental status however appears more awake. Patient no longer on BiPAP Sinus bradycardia to sinus rhythm high 50s to 60s on monitor with PVCs Objective Vital Signs Temp Pulse Pulse Resp BP Pulse Ox 11/04/21 11:00 68 11 L 175/124 100 11/04/21 10:02 67 182/131 11/04/21 10:00 68 16 203/131 100 11/04/21 09:27 71 196/128 11/04/21 09:00 70 16 190/139 99 11/04/21 08:39 97.7 F 11/04/21 08:11 99 11/04/21 08:10 69 15 100 11/04/21 08:00 70 10 L 181/122 96 11/04/21 07:00 68 10 L 188/121 98 11/04/21 06:00 71 12 170/115 11/04/21 05:00 72 20 180/114 95 11/04/21 04:00 96.8 F L 71 70 16 175/133 99 11/04/21 03:30 70 175/133 11/04/21 03:29 16 175/133 98 11/04/21 03:00 74 11 L 162/123 11/04/21 02:00 74 12 165/125 11/04/21 01:10 99 11/04/21 01:00 71 15 165/125 98 11/04/21 00:00 96.9 F L 70 72 13 174/120 100 11/03/21 23:04 67 13 174/120 100 11/03/21 23:00 71 20 173/126 100 11/03/21 22:00 69 17 177/124 98 11/03/21 21:09 67 158/113 11/03/21 21:00 66 12 158/113 91 11/03/21 20:00 66 68 16 158/116 99 11/03/21 19:42 98.7 F 11/03/21 19:00 62 15 145/115 98 11/03/21 18:00 60 9 L 138/97 99 11/03/21 17:00 61 12 138/113 96 11/03/21 16:32 60 37 H 138/113 99 11/03/21 16:29 96.3 F L 11/03/21 16:16 59 L 13 100 11/03/21 16:00 160/132 94 11/03/21 15:00 58 L 13 163/119 93 08/17/22 14:00 54 L 11 L 164/104 93 11/03/21 13:21 55 L 159/119 11/03/21 13:00 56 L 14 159/119 98 11/03/21 12:15 55 L 21 160/105 97 - Physical Examination General: Other (Altered mental status ) HEENT: Positive: Jaundice Neck: Positive: trachea midline, JVD/HJR Cardiac: Positive: Reg Rate and Rhythm Lungs: Positive: Rhonchi Neuro: Positive: Grossly Intact Abdomen: Positive: Ascites Skin: Positive: Cool Extremities: Present: upper extr. pulses, edema - Labs and Meds Cardiac Enzymes 11/04/21 Range/Units 04:52 AST 103 H (5-40) units/L CBC 11/04/21 Range/Units 04:52 WBC 18.8 H (4.5-11.0) K/mm3 RBC 5.58 H (3.65-5.03) M/mm3 Hgb 14.3 (11.8-15.2) gm/dl Hct 44.7 (35.5-45.6) % Plt Count 152 (140-440) K/mm3 Comprehensive Metabolic Panel 11/04/21 Range/Units 04:52 Sodium 149 H D (137-145) mmol/L Potassium 2.7 L* D (3.6-5.0) mmol/L Chloride 98.6 (98-107) mmol/L Carbon Dioxide 34 H D (22-30) mmol/L BUN 119 H (9-20) mg/dL Creatinine 2.3 H (0.8-1.3) mg/dL Glucose 128 H (75-100) mg/dL Calcium 9.2 (8.4-10.2) mg/dL AST 103 H (5-40) units/L ALT 138 H (7-56) units/L Alkaline Phosphatase 117 (35-129) units/L Total Protein 6.0 L (6.3-8.2) g/dL Albumin 4.2 (3.9-5) g/dL - Imaging and Cardiology Echo: report reviewed - Telemetry EKG Rhythm: Sinus Rhythm - EKG Sinus rhythms and dysrhythmias: sinus rhythm Chamber hypertrophy or enlargement: left ventricular hypertro
--- NOTE | 2021-11-04 12:29 | Progress Note ---
Assessment and Plan Acute hepatic encephalopathy Acute Respiratory Failure (Apneic episodes requiring NIPPV support) Possible Alcoholic Cirrhosis Ascites Hyperkalemia Acute kidney injury due to vasomotor nephropathy Alcoholic hepatitis Alcohol Abuse disorder Possible Hepatorenal Syndrome Hypertensive emergency (resolved) Cardiomyopathy EF 20- 25% - RT asked to give daytime breaks of NIV; will use qhs scheduled re: stephania oreilly respirations - repeat ABG after 30-60 minutes off BIPAP - get ABG if becomes hypotensive or starts to desaturate as may be evidence of hypercapnia worsening - reduce lasix to 20 mg IV daily - begin Diamox 250 mg IV bid re: metabolic alkalosis - replace electrolytes per protocol - follow repeat CT brain - continue NIV scheduled qhs with prn daytime use - accuchecks with glycemic control per SSI (While critically ill target blood glucose of 140-180 mg/dL; avoid hypoglycemia) - continue to wean supplemental oxygen for target O2 sat's > 90% acutely - aspiration precautions - prn bronchodilators with pulmonary hygiene per RT - wean per pulmonary driven protocols otherwise - avoid nephrotoxins, renally dose all medications - CIWA protocol - AB's per ID rec's - prn analgesia per CPOT score - Maintenance of sleep-wake cycle, avoid delirium - continue enteral nutritional support at goal rate as tolerated - G.I. & VTE prophylaxis - PT/OT/ROM exercises - mobility protocols for pressure ulcer prophylaxis - Monitor hemodynamics closely - continue other care per attending / other consultants - discharge planning ongoing concurrently .... Re-evaluate in am & prn CONDITION: CRITICAL PROGNOSIS: GUARDED CODE STATUS: FULL CODE The high probability of a clinically significant, sudden or life-threatening deterioration of the [respiratory, cardiovascular, Renal, GI & neurologic] system(s) required my full and direct attention, intervention and personal management. The aggregate critical care time was [34] minutes without overlap. Time includes spent on; [x] Data Review and interpretation [x] Patient assessment and monitoring of vital signs [x] Documentation [x] Medication orders and management Subjective Date of service: 11/04/21 Principal diagnosis: AMS; AHRF; Hyperkalemia; TRUONG; Alcoholic hepatitis; EtOH Abuse; HFrEF Interval history: Patient is seen today for: Acute hepatic encephalopathy; Acute Hypoxemic Respiratory Failure; Cirrhosis; Hyperkalemia; TRUONG; Alcoholic hepatitis; Alcohol Abuse disorder; HFrEF (EF 20- 25%) Seen and examined at bedside; 24hour events reviewed; nursing and respiratory care staff consulted; no adverse overnight events reported to me; resting in bed; AMS is persistent; also hypoventilation noted earlier but remains with metabolic alkalosis and maintaining oxygenation; he was placed on BIPAP post CT brain; no emesis or overt aspiration; afebrile; not following commands but protecting his airway Objective Vital Signs - 12hr 11/04/21 11/04/21 11/04/21 01:00 01:10 02:00 Temperature Pulse Rate 71 74 Pulse Rate [ From Monitor] Respiratory 15 12 Rate Blood Pressure 165/125 165/125 O2 Sat by Pulse 98 99 Oximetry 11/04/21 11/04/21 11/04/21 03:00 03:29 03:30 Temperature Pulse Rate 74 70 Pulse Rate [ From Monitor] Respiratory 11 L 16 Rate Blood Pressure 162/123 175/133 175/133 O2 Sat by Pulse 98 Oximetry 11/04/21 11/04/21 11/04/21 04:00 05:00 06:00 Temperature 96.8 F L Pulse Rate 71 72 71 Pulse Rate [ 70 From Monitor] Respiratory 16 20 12 Rate Blood Pressure 175/133 180/114 170/115 O2 Sat by Pulse 99 95 Oximetry 11/04/21 11/04/21 11/04/21 07:00 08:00 08:10 Temperature Pulse Rate 68 70 Pulse Rate [ 69 From Monitor] Respiratory 10 L 10 L 15 Rate Blood Pressure 188/121 181/122 O2 Sat by Pulse 98 96 100 Oximetry 11/04/21 11/04/21 11/04/21 08:11 08:39 09:00 Temperature 97.7 F Pulse Rate 70 Pulse Rate [ From Monitor] Respiratory 16 Rate Blood Pressure 190/139 O2 Sat by Pulse 99 99 Oximetry 11/04/21 11/04/21 11/04/21 09:27 10:00 10:02 Temperature Pulse Rate 71 68 67 Pulse Rate [ From Monitor] Respiratory 16 Rate Blood Pressure 196/128 203/131 182/131 O2 Sat by Pulse 100 Oximetry 11/04/21 11/04/21 11/04/21 11:00 12:10 12:23 Temperature Pulse Rate 68 61 Pulse Rate [ 56 L From Monitor] Respiratory 11 L 10 L 11 L Rate Blood Pressure 175/124 150/102 O2 Sat by Pulse 100 99 100 Oximetry Constitutional: no acute distress, other (minimally responisve, FFM on BIPAP ) ENT: other (BIPAP FFM) Neck: supple, no lymphadenopathy, no JVD Effort: normal Ascultation: Bilateral: clear, diminished breath sounds Percussion: Bilateral: not dull Cardiovascular: regular rate and rhythm, other (S1,S2) Gastrointestinal: soft, non-tender, other (Distended but soft, Wu catheter in pace and making urine) Extremities: no cyanosis, no edema, pulses normal, no ischemia or petechiae Neurologic: non-focal exam (grossly), pupils equal and round, unable to assess, other (not following commands; somnolent to lethargic) Psychiatric: other (unable to assess re: AMS) CBC and BMP: 11/04/21 04:52 11/04/21 16:19 ABG, PT/INR, D-dimer: ABG ABG pH 7.489 pH Units (7.350-7.450) H 11/03/21 03:09 ABG pCO2 38.6 mm Hg 11/03/21 03:09 ABG pO2 131.9 mm Hg (80.0-90.0) H 11/03/21 03:09 ABG O2 Saturation 98.7 % (95.0-99.0) 11/03/21 03:09 PT/INR, D-dimer PT 21.9 Sec. (12.2-14.9) H 11/03/21 04:39 INR 1.68 (0.87-1.13) H 11/03/21 04:39 Abnormal lab findings: Abnormal Labs 10/29/21 10/29/21 10/29/21 19:04 19:04 19:04 WBC 11.7 H RBC 6.09 H Hgb 16.1 H Hct 49.9 H MCV 82 L MCH 26 L MCHC RDW 17.5 H Lymph % (Auto) 8.0 L Lymph # (Auto) 0.9 L Seg Neutrophils % 86.1 H Seg Neuts % (Manual) Lymphocytes % (Manual) Nucleated RBC % Seg Neutrophils # 10.0 H Seg Neutrophils # Man Lymphocytes # (Manual) PT 19.6 H INR 1.47 H ABG pH ABG pO2 ABG HCO3 ABG Base Excess Sodium Potassium Chloride Carbon Dioxide BUN Creatinine Glucose POC Glucose Magnesium Total Bilirubin Direct Bilirubin AST ALT Ammonia Total Creatine Kinase NT-Pro-B Natriuret Pep 23243 H Total Protein Albumin PTH Intact Urine Creatinine Salicylates Acetaminophen 10/29/21 10/29/21 10/29/21 19:04 19:04 19:04 WBC RBC Hgb Hct MCV MCH MCHC RDW Lymph % (Auto) Lymph # (Auto) Seg Neutrophils % Seg Neuts % (Manual) Lymphocytes % (Manual) Nucleated RBC % Seg Neutrophils # Seg Neutrophils # Man Lymphocytes # (Manual) PT INR ABG pH ABG pO2 ABG HCO3 ABG Base Excess Sodium 136 L Potassium Chloride 86.3 L Carbon Dioxide 20 L BUN 110 H Creatinine 3.1 H Glucose 119 H POC Glucose Magnesium Total Bilirubin 5.80 H Direct Bilirubin AST 62 H ALT Ammonia 12.0 L Total Creatine Kinase 1863 H NT-Pro-B Natriuret Pep Total Protein Albumin 3.4 L PTH Intact Urine Creatinine Salicylates < 0.3 L Acetaminophen 10/29/21 10/30/21 10/30/21 19:04 00:29 15:51 WBC RBC Hgb Hct MCV MCH MCHC RDW Lymph % (Auto) Lymph # (Auto) Seg Neutrophils % Seg Neuts % (Manual) Lymphocytes % (Manual) Nucleated RBC % Seg Neutrophils # Seg Neutrophils # Man Lymphocytes # (Manual) PT INR ABG pH ABG pO2 ABG HCO3 ABG Base Excess Sodium Potassium Chloride Carbon Dioxide BUN Creatinine 2.4 H Glucose POC Glucose Magnesium Total Bilirubin Direct Bilirubin AST ALT Ammonia Total Creatine Kinase NT-Pro-B Natriuret Pep Total Protein Albumin PTH Intact Urine Creatinine 36.1 H Salicylates Acetaminophen 5.0 L 10/31/21 10/31/21 10/31/21 04:59 04:59 04:59 WBC 12.4 H RBC 5.53 H Hgb Hct MCV 81 L MCH 26 L MCHC 31 L RDW 17.1 H Lymph % (Auto) Lymph # (Auto) Seg Neutrophils % Seg Neuts % (Manual) 98.0 H Lymphocytes % (Manual) 0 L Nucleated RBC % 2.0 H Seg Neutrophils # Seg Neutrophils # Man 12.2 H Lymphocytes # (Manual) 0.0 L PT INR ABG pH ABG pO2 ABG HCO3 ABG Base Excess Sodium Potassium 2.6 L* D Chloride 90.0 L Carbon Dioxide BUN 105 H Creatinine 2.1 H Glucose 110 H POC Glucose Magnesium Total Bilirubin 6.40 H Direct Bilirubin AST 99 H ALT Ammonia Total Creatine Kinase NT-Pro-B Natriuret Pep Total Protein Albumin 3.8 L PTH Intact 170.9 H Urine Creatinine Salicylates Acetaminophen 10/31/21 10/31/21 11/01/21 13:45 13:54 07:51 WBC RBC 5.62 H Hgb Hct 46.2 H MCV 82 L MCH 26 L MCHC RDW 17.2 H Lymph % (Auto) 4.5 L Lymph # (Auto) 0.5 L Seg Neutrophils % Seg Neuts % (Manual) Lymphocytes % (Manual) Nucleated RBC % Seg Neutrophils # 9.1 H Seg Neutrophils # Man Lymphocytes # (Manual) PT INR ABG pH ABG pO2 ABG HCO3 ABG Base Excess Sodium 134 L Potassium 3.5 L D Chloride 87.1 L Carbon Dioxide BUN 95 H Creatinine 2.1 H Glucose 130 H POC Glucose 148 H Magnesium Total Bilirubin 7.00 H Direct Bilirubin AST 114 H ALT 66 H Ammonia Total Creatine Kinase NT-Pro-B Natriuret Pep Total Protein Albumin PTH Intact Urine Creatinine Salicylates Acetaminophen 11/01/21 11/01/21 11/02/21 07:51 07:51 00:12 WBC RBC Hgb Hct MCV MCH MCHC RDW Lymph % (Auto) Lymph # (Auto) Seg Neutrophils % Seg Neuts % (Manual) Lymphocytes % (Manual) Nucleated RBC % Seg Neutrophils # Seg Neutrophils # Man Lymphocytes # (Manual) PT 22.7 H INR 1.76 H ABG pH ABG pO2 ABG HCO3 ABG Base Excess Sodium Potassium Chloride 87.2 L Carbon Dioxide BUN 105 H Creatinine 2.7 H Glucose POC Glucose 131 H Magnesium Total Bilirubin 9.60 H Direct Bilirubin AST 100 H ALT 80 H Ammonia Total Creatine Kinase 1594 H NT-Pro-B Natriuret Pep Total Protein Albumin PTH Intact Urine Creatinine Salicylates Acetaminophen 11/02/21 11/02/21 11/02/21 06:08 07:00 07:00 WBC 13.4 H RBC 5.24 H Hgb Hct MCV 81 L MCH 26 L MCHC RDW 17.7 H Lymph % (Auto) Lymph # (Auto) Seg Neutrophils % Seg Neuts % (Manual) Lymphocytes % (Manual) Nucleated RBC % Seg Neutrophils # Seg Neutrophils # Man Lymphocytes # (Manual) PT INR ABG pH ABG pO2 ABG HCO3 ABG Base Excess Sodium Potassium 5.8 H D Chloride 91.9 L Carbon Dioxide BUN 122 H Creatinine 2.6 H Glucose 136 H POC Glucose 160 H Magnesium Total Bilirubin Direct Bilirubin AST ALT Ammonia Total Creatine Kinase NT-Pro-B Natriuret Pep Total Protein Albumin PTH Intact Urine Creatinine Salicylates Acetaminophen 11/02/21 11/02/21 11/02/21 08:54 16:52 Unknown WBC RBC Hgb Hct MCV MCH MCHC RDW Lymph % (Auto) Lymph # (Auto) Seg Neutrophils % Seg Neuts % (Manual) Lymphocytes % (Manual) Nucleated RBC % Seg Neutrophils # Seg Neutrophils # Man Lymphocytes # (Manual) PT INR ABG pH ABG pO2 126.7 H ABG HCO3 26.1 H ABG Base Excess Sodium Potassium Chloride 93.0 L Carbon Dioxide BUN 125 H Creatinine 3.2 H Glucose 135 H POC Glucose 141 H Magnesium Total Bilirubin Direct Bilirubin AST ALT Ammonia Total Creatine Kinase NT-Pro-B Natriuret Pep Total Protein Albumin PTH Intact Urine Creatinine Salicylates Acetaminophen 11/02/21 11/03/21 11/03/21 Unknown 00:44 03:09 WBC RBC Hgb Hct MCV MCH MCHC RDW Lymph % (Auto) Lymph # (Auto) Seg Neutrophils % Seg Neuts % (Manual) Lymphocytes % (Manual) Nucleated RBC % Seg Neutrophils # Seg Neutrophils # Man Lymphocytes # (Manual) PT INR ABG pH 7.489 H ABG pO2 131.9 H ABG HCO3 28.7 H ABG Base Excess 5.1 H Sodium Potassium Chloride Carbon Dioxide BUN Creatinine Glucose POC Glucose 147 H Magnesium 2.90 H Total Bilirubin Direct Bilirubin AST ALT Ammonia Total Creatine Kinase NT-Pro-B Natriuret Pep Total Protein Albumin PTH Intact Urine Creatinine Salicylates Acetaminophen 11/03/21 11/03/21 11/03/21 04:39 04:39 04:39 WBC 16.1 H RBC 5.36 H Hgb Hct MCV 81 L MCH 26 L MCHC RDW 17.2 H Lymph % (Auto) Lymph # (Auto) Seg Neutrophils % Seg Neuts % (Manual) Lymphocytes % (Manual) Nucleated RBC % Seg Neutrophils # Seg Neutrophils # Man Lymphocytes # (Manual) PT 21.9 H INR 1.68 H ABG pH ABG pO2 ABG HCO3 ABG Base Excess Sodium Potassium Chloride Carbon Dioxide BUN Creatinine Glucose POC Glucose Magnesium Total Bilirubin 8.80 H Direct Bilirubin 4.9 H AST 115 H ALT 138 H Ammonia Total Creatine Kinase NT-Pro-B Natriuret Pep Total Protein 6.2 L Albumin PTH Intact Urine Creatinine Salicylates Acetaminophen 11/03/21 11/03/21 11/03/21 04:39 04:39 06:04 WBC RBC Hgb Hct MCV MCH MCHC RDW Lymph % (Auto) Lymph # (Auto) Seg Neutrophils % Seg Neuts % (Manual) Lymphocytes % (Manual) Nucleated RBC % Seg Neutrophils # Seg Neutrophils # Man Lymphocytes # (Manual) PT INR ABG pH ABG pO2 ABG HCO3 ABG Base Excess Sodium Potassium Chloride 94.1 L Carbon Dioxide BUN 122 H Creatinine 2.9 H Glucose 130 H POC Glucose 163 H Magnesium Total Bilirubin Direct Bilirubin AST ALT Ammonia 62.0 H Total Creatine Kinase NT-Pro-B Natriuret Pep Total Protein Albumin PTH Intact Urine Creatinine Salicylates Acetaminophen 11/03/21 11/03/21 11/03/21 11:54 17:25 23:57 WBC RBC Hgb Hct MCV MCH MCHC RDW Lymph % (Auto) Lymph # (Auto) Seg Neutrophils % Seg Neuts % (Manual) Lymphocytes % (Manual) Nucleated RBC % Seg Neutrophils # Seg Neutrophils # Man Lymphocytes # (Manual) PT INR ABG pH ABG pO2 ABG HCO3 ABG Base Excess Sodium Potassium Chloride Carbon Dioxide BUN Creatinine Glucose POC Glucose 164 H 142 H 147 H Magnesium Total Bilirubin Direct Bilirubin AST ALT Ammonia Total Creatine Kinase NT-Pro-B Natriuret Pep Total Protein Albumin PTH Intact Urine Creatinine Salicylates Acetaminophen 11/04/21 11/04/21 04:52 04:52 WBC 18.8 H RBC 5.58 H Hgb Hct MCV 80 L MCH 26 L MCHC RDW 17.8 H Lymph % (Auto) Lymph # (Auto) Seg Neutrophils % Seg Neuts % (Manual) Lymphocytes % (Manual) Nucleated RBC % Seg Neutrophils # Seg Neutrophils # Man Lymphocytes # (Manual) PT INR ABG pH ABG pO2 ABG HCO3 ABG Base Excess Sodium 149 H D Potassium 2.7 L* D Chloride Carbon Dioxide 34 H D BUN 119 H Creatinine 2.3 H Glucose 128 H POC Glucose Magnesium Total Bilirubin 10.00 H Direct Bilirubin AST 103 H ALT 138 H Ammonia Total Creatine Kinase NT-Pro-B Natriuret Pep Total Protein 6.0 L Albumin PTH Intact Urine Creatinine Salicylates Acetaminophen Chest x-ray: pending Allied health notes reviewed: nursing
--- NOTE | 2021-11-04 13:24 | Progress Note ---
Assessment and Plan # Acute Kidney Injury: suspect underlying CKD in setting of HTN. Cannot rule out cardio-renal and/or hepatorenal changes. Cr and UOP improving. 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 May benefit from echocardiogram given history of uncontrolled HTN, potential cardiac effects and hepatic congestion # HTN: Agree with antihypertensives, recommend holding clonidine given mental status and concomitant pecedex use. # Alcohol Hepatitis, Likely Cirrhosis: GI consult noted Subjective Date of service: 11/04/21 Principal diagnosis: AMS; AHRF; Hyperkalemia; TRUONG; Alcoholic hepatitis; EtOH Abuse; HFrEF Interval history: Seen in ICU. On bipap this morning. Good UOP. Objective - Exam Narrative Exam: Constitutional: NAD Head: NC/AT Neck: supple Lungs: On bipap CV: RRR, no M/R/G Abdomen: soft, non-tender, bowel sounds present Back: nontender Extremities: LE edema, pulses WNL Skin: intact Neuro: SOmnolent - Vital Signs Vital signs: Vital Signs - 12hr 11/04/21 11/04/21 11/04/21 02:00 03:00 03:29 Temperature Pulse Rate 74 74 Pulse Rate [ From Monitor] Respiratory 12 11 L 16 Rate Blood Pressure 165/125 162/123 175/133 O2 Sat by Pulse 98 Oximetry 11/04/21 11/04/21 11/04/21 03:30 04:00 05:00 Temperature 96.8 F L Pulse Rate 70 71 72 Pulse Rate [ 70 From Monitor] Respiratory 16 20 Rate Blood Pressure 175/133 175/133 180/114 O2 Sat by Pulse 99 95 Oximetry 11/04/21 11/04/21 11/04/21 06:00 07:00 08:00 Temperature Pulse Rate 71 68 70 Pulse Rate [ From Monitor] Respiratory 12 10 L 10 L Rate Blood Pressure 170/115 188/121 181/122 O2 Sat by Pulse 98 96 Oximetry 11/04/21 11/04/21 11/04/21 08:10 08:11 08:39 Temperature 97.7 F Pulse Rate Pulse Rate [ 69 From Monitor] Respiratory 15 Rate Blood Pressure O2 Sat by Pulse 100 99 Oximetry 11/04/21 11/04/21 11/04/21 09:00 09:27 10:00 Temperature Pulse Rate 70 71 68 Pulse Rate [ From Monitor] Respiratory 16 16 Rate Blood Pressure 190/139 196/128 203/131 O2 Sat by Pulse 99 100 Oximetry 11/04/21 11/04/21 11/04/21 10:02 11:00 12:10 Temperature Pulse Rate 67 68 61 Pulse Rate [ From Monitor] Respiratory 11 L 10 L Rate Blood Pressure 182/131 175/124 150/102 O2 Sat by Pulse 100 99 Oximetry 11/04/21 11/04/21 12:23 12:30 Temperature 96.8 F L Pulse Rate Pulse Rate [ 56 L From Monitor] Respiratory 11 L Rate Blood Pressure O2 Sat by Pulse 100 Oximetry - Lab 11/04/21 04:52 11/04/21 04:52 Most recent lab results ABG pH 7.489 pH Units (7.350-7.450) H 11/03/21 03:09 ABG pCO2 38.6 mm Hg 11/03/21 03:09 ABG pO2 131.9 mm Hg (80.0-90.0) H 11/03/21 03:09 ABG HCO3 28.7 mmol/L (20.0-26.0) H 11/03/21 03:09 ABG O2 Saturation 98.7 % (95.0-99.0) 11/03/21 03:09 Calcium 9.2 mg/dL (8.4-10.2) 11/04/21 04:52 Phosphorus 4.30 mg/dL (2.5-4.5) 11/04/21 04:52 Magnesium 2.30 mg/dL (1.7-2.3) 11/04/21 04:52 Urine Creatinine 36.1 mg/dL (0.1-20.0) H 10/30/21 00:29 Urine Sodium 66 mmol/L 10/30/21 00:29 Medications & Allergies - Medications Allergies/Adverse Reactions: Allergies No Known Allergies Allergy (Unverified 11/02/21 15:49) Home Medications: Home Medications Medication Instructions Recorded Confirmed Last Taken Type Furosemide [Lasix] 20 mg PO QDAY #30 tablet 09/22/21 Unknown Rx Lisinopril [Zestril] 5 mg PO DAILY #30 09/22/21 Unknown Rx Metoprolol [Lopressor TAB] 25 mg PO BID #60 tablet 09/22/21 Unknown Rx Pantoprazole [Protonix TAB] 20 mg PO QDAY #30 tablet.dr 09/22/21 Unknown Rx Potassium Chloride [K-Dur] 10 meq PO QDAY #30 09/22/21 Unknown Rx Simvastatin 10 mg PO QHS #30 09/22/21 Unknown Rx Active Medications: Generic Name Dose Route Start Last Admin Trade Name Freq PRN Reason Stop Dose Admin Acetaminophen 650 mg 11/01/21 12:39 Acetaminophen 325 Mg Tab PO Q6H PRN Pain MILD(1-3)/Fever >100.5/MILTON Albuterol 2.5 mg 10/30/21 00:44 Albuterol 2.5 Mg/3 Ml Nebu IH Q3HRT PRN Shortness Of Breath Amlodipine Besylate 10 mg 11/04/21 11:00 11/04/21 10:02 Amlodipine 10 Mg Tab FEEDTUBE 10 mg QDAY CAROL Administration Chlordiazepoxide HCl 10 mg 11/04/21 09:07 Chlordiazepoxide 5 Mg Cap FEEDTUBE Q12H PRN Anxiety/AGITATION Clonidine HCl 0.1 mg 11/02/21 10:00 11/04/21 09:27 Clonidine 0.1 Mg Tab FEEDTUBE 0.1 mg DAILY CAROL Administration Furosemide 40 mg 11/02/21 10:00 11/04/21 06:15 Furosemide 40 Mg/4 Ml Inj IV 40 mg 0600,1800 CAROL Administration Hydralazine HCl 10 mg 10/30/21 00:35 11/04/21 03:30 Hydralazine 20 Mg/1 Ml Inj IV 10 mg Q6H PRN Administration SBP >/=170; DBP >/=110 Hydralazine HCl 50 mg 11/04/21 22:00 Hydralazine 25 Mg Tab FEEDTUBE Q8HR CAROL Dexmedetomidine HCl 200 mcg/ 50 mls @ 4.604 mls/hr 11/04/21 10:00 11/04/21 11:40 Sodium Chloride IV 0.2 mcg/kg/hr TITRATE CAROL 4.604 mls/hr Titration Protocol 0.2 MCG/KG/HR Labetalol HCl 10 mg 10/30/21 08:51 10/30/21 09:25 Labetalol 20 Mg/4 Ml Inj IV 10 mg Q4HR PRN Administration sbp>160 Lactulose 20 gm 11/04/21 10:00 11/04/21 09:27 Lactulose 20 Gm/30 Ml Oral Liqd FEEDTUBE 20 gm DAILY CAROL Administration Lansoprazole 30 mg 11/03/21 10:00 11/04/21 09:27 Lansoprazole 30 Mg Solutab FEEDTUBE 30 mg QDAY CAROL Administration Naloxone HCl 0.4 mg 11/02/21 15:35 11/02/21 16:00 Naloxone 0.4 Mg/1 Ml Inj IV 0.4 mg ONCE CAROL Administration Ondansetron HCl 4 mg 10/30/21 00:44 Ondansetron 4 Mg/2 Ml Inj IV Q8H PRN Nausea And Vomiting Prednisone 5 mg 11/04/21 10:00 11/04/21 09:35 Prednisone 5 Mg Tab FEEDTUBE 11/13/21 10:01 5 mg QDAY CAROL Administration Rifaximin 550 mg 11/02/21 10:00 11/04/21 09:28 Rifaximin 550 Mg Tab FEEDTUBE 550 mg BID CAROL Administration Sodium Chloride 10 ml 10/30/21 10:00 11/04/21 09:28 Sodium Chloride 0.9% 10 Ml Flush Syringe IV 10 ml BID CAROL Administration Sodium Chloride 10 ml 10/30/21 00:44 Sodium Chloride 0.9% 10 Ml Flush Syringe IV PRN PRN LINE FLUSH
[2021-11-04 14:49] LABS: ABG Base Excess 13.9 mmol/L (-2.0-3.0); ABG Methemoglobin 0.6 % (0.0-1.5); ABG Oxygen Saturation 94.7 % (95.0-99.0); ABG PCO2 55.8 mm Hg; ABG PH 7.473 pH Units (7.350-7.450); ABG PO2 65.7 mm Hg (80.0-90.0)
[2021-11-04] MEDS ORDERED: WATER FOR INJ Sterile (PF) 10 ML ONE (15:40)
--- NOTE | 2021-11-04 16:30 | Progress Note ---
<NUNU HOLLEY - Last Filed: 11/04/21 16:51> Assessment and Plan Assessment and plan: This is a 51-year-old male with known past medical history of probable cirrhosis and/or hepatic disease, manifested by hepatomegaly, scleral icterus, and lower extremity swelling admitted for hypertensive emergency, alcholic hepatitis, and acute kidney injury Hospital Course to Date: 10/31: Albumin infusion noted. Continue lasix mehdi for diuresis. Awaiting interpretation of US liver. When renal function stabilizes, will order CTAP w/ con if ok with nephrology. ECHO pending as well for cardiac eval. Code MET called in afternoon. patient was noted to be in respiratory distress with fluctuating mentation. Noted to be bradycardic in low 40's. Nadalol dc and patient admin glucagon. Will avoid BB the rest of the admission. CXR negative for pulmonary edema or pneumonia. Placed on nasal cannula with subsequent improvement. D/w GI, will start rifaximin, lactulose decreased. 11/01 : D/w GI. mentation improved. OK to start CLD. Renal function worse today, will follow nephro input. ECHO completed, demonstrated reduced EF of 20-25%. Will consult cardiology. 11/02: Patient transferred to ICU overnight due to worsening respiratory status and periods of apnea now on continuous Bipap. This am CXR with mild CHF, renal function continue to worsen. On IV Lasix per Nephro. Patient remains encephalopatic, remains on CIWA protocol and on lactulose BID, repeat ammonia level in the am. Continue to monitor renal function and electrolytes. 11/03: Mentation with slight improvement, remains lethargic but was able to voice his name and following simple commands this am. Continue lactulose and CIWA protocol, phenobarb switched to PRN PO librium due to worsen renal function. Patient remains on continuous Bipap due to apnea. Continue O2 supplementation per CCM. Renal function continue to worsen, remains on IV lasix per Nephro. No immediate indication for iHD at this time per Nephro. TF on hold for now per GI, low dose D5W gtt initiated. 11/04: More awake this am, but still confused and restless. Very hypertensive this am, SBP in the 190-200s. PRN IV hydralazine with minimal response. 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 And patient also removed NGT overnight, so he did not received PO meds. Will start low dose precedex gtt for now and DHT was reinserted, resume antihypertensive agents once DHT placement is confirmed. Patient still on IV lasix per Nephro, over 4L UOP in last 24hrs with mild improvement in renal function. Continue current management per Nephro. K repleted and FWF added for hypernatremia, repeat labs ordered. 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 - lasix, spironalactone . d/c spironalactone #Acute Respiratory Distress #Apneic Episodes - Went into respirtaory distress overnight requiring continuous Bipap - Peroids of apnea observed - Remains on Bipap this am - CXR reveal mild CHF, now on IV Lasix per Nephro - This am ABG noted - Continue O2 supplement for now and wean as tolerated - Continue SPO2 monitor for SPO2 goal above 92% #Congestive Heart Failure with Reduced EF #Cardiomyopathy #Hypertensive emergency (resolved) - Recent ECHO EF 20-25% - Cardiology consulted, appreciate recommendations - IV Lasix added per Nephro - blood pressure regimen initiated: norvasc, amlodipine, nadalol, prn hydralazine and labetalol. - Continue blood pressure monitor per protocol - Maintain MAP above 65 - Strict I&Os and daily weight #Acute kidney injury due to vasomotor nephropathy #Hypokalemia #Hypernatremia - Cr: 4.1 on admission - trend renal makers daily - nephrology consulted, currently recommends trial of lasix, renal us and studie s ordered - Strict intake and output - FWF added - Avoid nephrotoxic medications; Renally dose medications - Monitor and replace electrolytes as needed #Acute Hepatic Encephalopathy #Possible ETOH Withdrawal #S/p Witnessed Fall - extensive alcohol use history, 12 pack per day - Worsen mental status probable DTs - On [facility] protocol, phenobarb switched to PRN PO librium due to worsen renal function - CT head with no acute findings - On Lactulose BID, ammonia 66 - Fall precaution - Maintenance of sleep-wake cycle #Rhabdomyolysis - trend CK - gentle hydration #GI/DVT Prophylaxis - PPI- Lansoprazole - SCDs to bilateral lower extremities while in bed #Advance care planning - Disease education, care plan, diagnoses, and prognosis discussed with patient's son. Patient is a FULL code. Patient's family acknowledged understanding and agree with care plan The high probability of a clinically significant, sudden or life threatening deterioration of the [multiple] system(s) required my full and direct attention, intervention and personal management. The aggregate critical care time was [60] minutes. This time is in addition to time spent performing reported procedures but includes the following: [x] Data Review and interpretation [x] Patient assessment and monitoring of vital signs [x] Documentation [x] Medication orders and management Disposition Plan: ICU Total Time Spent with Patient (Minutes): 60 History Interval history: Patient seen and examined at the bedside. Mentation continue to improved but still confused and restless this am. Off the bipap, stable on 1L NC. Very hypertesnive, SBP in the 190-200s this am. Patient removed NGT overnight, antihypertensive meds held overnight. Hospitalist Physical - Constitutional Vitals: Temp Pulse Resp BP Pulse Ox 96.8 F L 54 L 6 L 149/89 97 11/04/21 12:30 11/04/21 16:00 11/04/21 16:00 11/04/21 16:00 11/04/21 16:00 General appearance: Present: no acute distress, well-nourished, obese - EENT Eyes: Present: PERRL (Sclera jaundice) ENT: hearing intact - Neck Neck: Present: normal ROM - Respiratory Respiratory effort: normal, other Respiratory: bilateral: diminished - Cardiovascular Rhythm: regular Heart Sounds: Present: S1 & S2 - Extremities Extremities: no ischemia, pulses intact, pulses symmetrical Extremity abnormal: edema - Peripheral Assessment Generalized Edema Type: Non-pitting Edema Degree: 1+ Capillary Refill: < 3 seconds Skin Temperature: Warm Peripheral Pulses: within normal limits - Abdominal General gastrointestinal: soft, non-distended, normal bowel sounds - Integumentary Integumentary: Present: clear, warm, dry, jaundice - Psychiatric Psychiatric: cooperative, other ( AAO, confused, and restless) - Neurologic Neurologic: moves all extremities, other ( AAO, confused, and restless) - Allied Health Allied health notes reviewed: nursing, case management Results - Labs CBC & Chem 7: 11/04/21 04:52 11/04/21 04:52 Labs: Laboratory Last Values WBC 18.8 K/mm3 (4.5-11.0) H 11/04/21 04:52 RBC 5.58 M/mm3 (3.65-5.03) H 11/04/21 04:52 Hgb 14.3 gm/dl (11.8-15.2) 11/04/21 04:52 Hct 44.7 % (35.5-45.6) 11/04/21 04:52 MCV 80 fl (84-94) L 11/04/21 04:52 MCH 26 pg (28-32) L 11/04/21 04:52 MCHC 32 % (32-34) 11/04/21 04:52 RDW 17.8 % (13.2-15.2) H 11/04/21 04:52 Plt Count 152 K/mm3 (140-440) 11/04/21 04:52 Lymph % (Auto) 4.5 % (13.4-35.0) L 11/01/21 07:51 [place] % (Auto) [employer] Super[employer] 11/01/21 07:51 Eos % (Auto) 0.4 % (0.0-4.3) 11/01/21 07:51 Baso % (Auto) 0.5 % (0.0-1.8) 11/01/21 07:51 Lymph # (Auto) 0.5 K/mm3 (1.2-5.4) L 11/01/21 07:51 [place] # (Auto) 0.6 K/mm3 (0.0-0.8) 11/01/21 07:51 Eos # (Auto) 0.0 K/mm3 (0.0-0.4) 11/01/21 07:51 Baso # (Auto) 0.0 K/mm3 (0.0-0.1) 11/01/21 07:51 Add Manual Diff Complete 10/31/21 04:59 Total Counted 100 10/31/21 04:59 Seg Neutrophils % [employer] 11/01/21 07:51 Seg Neuts % (Manual) 98.0 % (40.0-70.0) H 10/31/21 04:59 Band Neutrophils % 0 % 10/31/21 04:59 Lymphocytes % (Manual) 0 % (13.4-35.0) L 10/31/21 04:59 Reactive Lymphs % (Man) 0 % 10/31/21 04:59 Monocytes % (Manual) 2.0 % (0.0-7.3) 10/31/21 04:59 Eosinophils % (Manual) 0 % (0.0-4.3) 10/31/21 04:59 Basophils % (Manual) 0 % (0.0-1.8) 10/31/21 04:59 Metamyelocytes % 0 % 10/31/21 04:59 Myelocytes % 0 % 10/31/21 04:59 Promyelocytes % 0 % 10/31/21 04:59 Blast Cells % 0 % 10/31/21 04:59 Nucleated RBC % 2.0 % (0.0-0.9) H 10/31/21 04:59 Seg Neutrophils # 9.1 K/mm3 (1.8-7.7) H 11/01/21 07:51 Seg Neutrophils # Man 12.2 K/mm3 (1.8-7.7) H 10/31/21 04:59 Band Neutrophils # 0.0 K/mm3 10/31/21 04:59 Lymphocytes # (Manual) 0.0 K/mm3 (1.2-5.4) L 10/31/21 04:59 Abs React Lymphs (Man) 0.0 K/mm3 10/31/21 04:59 Monocytes # (Manual) 0.2 K/mm3 (0.0-0.8) 10/31/21 04:59 Eosinophils # (Manual) 0.0 K/mm3 (0.0-0.4) 10/31/21 04:59 Basophils # (Manual) 0.0 K/mm3 (0.0-0.1) 10/31/21 04:59 Metamyelocytes # 0.0 K/mm3 10/31/21 04:59 Myelocytes # 0.0 K/mm3 10/31/21 04:59 Promyelocytes # 0.0 K/mm3 10/31/21 04:59 Blast Cells # 0.0 K/mm3 10/31/21 04:59 WBC Morphology Not Reportable 10/31/21 04:59 Hypersegmented Neuts Not Reportable 10/31/21 04:59 Hyposegmented Neuts Not Reportable 10/31/21 04:59 Hypogranular Neuts Not Reportable 10/31/21 04:59 Smudge Cells Not Reportable 10/31/21 04:59 Toxic Granulation Not Reportable 10/31/21 04:59 Toxic Vacuolation Not Reportable 10/31/21 04:59 Dohle Bodies Not Reportable 10/31/21 04:59 Pelger-Huet Anomaly Not Reportable 10/31/21 04:59 Osmar Rods Not Reportable 10/31/21 04:59 Platelet Estimate Consistent w auto 10/31/21 04:59 Clumped Platelets Not Reportable 10/31/21 04:59 Plt Clumps, EDTA Not Reportable 10/31/21 04:59 Large Platelets Not Reportable 10/31/21 04:59 Giant Platelets Not Reportable 10/31/21 04:59 Platelet Satelliting Not Reportable 10/31/21 04:59 Plt Morphology Comment Not Reportable 10/31/21 04:59 RBC Morphology Not Reportable 10/31/21 04:59 Dimorphic RBCs Not Reportable 10/31/21 04:59 Polychromasia Not Reportable 10/31/21 04:59 Hypochromasia 1+ 10/31/21 04:59 Poikilocytosis Not Reportable 10/31/21 04:59 Anisocytosis Not Reportable 10/31/21 04:59 Microcytosis Not Reportable 10/31/21 04:59 Macrocytosis Not Reportable 10/31/21 04:59 Spherocytes Not Reportable 10/31/21 04:59 Pappenheimer Bodies Not Reportable 10/31/21 04:59 Sickle Cells Not Reportable 10/31/21 04:59 Target Cells Not Reportable 10/31/21 04:59 Tear Drop Cells Not Reportable 10/31/21 04:59 Ovalocytes Not Reportable 10/31/21 04:59 Helmet Cells Not Reportable 10/31/21 04:59 [place] Bodies Not Reportable 10/31/21 04:59 [place] Rings Not Reportable 10/31/21 04:59 [place] Cells Not Reportable 10/31/21 04:59 Bite Cells Not Reportable 10/31/21 04:59 Crenated Cell Not Reportable 10/31/21 04:59 Elliptocytes Not Reportable 10/31/21 04:59 Acanthocytes (Spur) Not Reportable 10/31/21 04:59 Rouleaux Not Reportable 10/31/21 04:59 Hemoglobin C Crystals Not Reportable 10/31/21 04:59 Schistocytes Not Reportable 10/31/21 04:59 Malaria parasites Not Reportable 10/31/21 04:59 Jerry Bodies Not Reportable 10/31/21 04:59 Hem Pathologist Commnt No 10/31/21 04:59 PT 21.9 Sec. (12.2-14.9) H 11/03/21 04:39 INR 1.68 (0.87-1.13) H 11/03/21 04:39 APTT 29.0 Sec. (24.2-36.6) 10/29/21 19:04 ABG pH 7.473 pH Units (7.350-7.450) H 11/04/21 14:15 ABG pCO2 55.8 mm Hg 11/04/21 14:15 ABG pO2 65.7 mm Hg (80.0-90.0) L 11/04/21 14:15 ABG HCO3 40.0 mmol/L (20.0-26.0) H 11/04/21 14:15 ABG O2 Saturation 94.7 % (95.0-99.0) L 11/04/21 14:15 ABG O2 Content 18.1 (0.0-44) 11/04/21 14:15 ABG Base Excess 13.9 mmol/L (-2.0-3.0) H 11/04/21 14:15 ABG Hemoglobin 14.0 gm/dl (14.0-18.0) 11/04/21 14:15 ABG Carboxyhemoglobin 2.1 % (0.0-5.0) 11/04/21 14:15 ABG Methemoglobin 0.6 % (0.0-1.5) 11/04/21 14:15 Oxyhemoglobin 92.2 % (95.0-99.0) L 11/04/21 14:15 FiO2 21 % 11/04/21 14:15 Sodium 149 mmol/L (137-145) H D 11/04/21 04:52 Potassium 2.7 mmol/L (3.6-5.0) L* D 11/04/21 04:52 Chloride 98.6 mmol/L (98-107) 11/04/21 04:52 Carbon Dioxide 34 mmol/L (22-30) H D 11/04/21 04:52 Anion Gap 19 mmol/L 11/04/21 04:52 BUN 119 mg/dL (9-20) H 11/04/21 04:52 Creatinine 2.3 mg/dL (0.8-1.3) H 11/04/21 04:52 Estimated GFR 36 ml/min 11/04/21 04:52 BUN/Creatinine Ratio 52 % 11/04/21 04:52 Glucose 128 mg/dL (75-100) H 11/04/21 04:52 POC Glucose 139 mg/dL (70-105) H 11/04/21 12:29 Calcium 9.2 mg/dL (8.4-10.2) 11/04/21 04:52 Phosphorus 4.30 mg/dL (2.5-4.5) 11/04/21 04:52 Magnesium 2.30 mg/dL (1.7-2.3) 11/04/21 04:52 Total Bilirubin 10.00 mg/dL (0.1-1.2) H 11/04/21 04:52 Direct Bilirubin 4.9 mg/dL (0-0.2) H 11/03/21 04:39 Indirect Bilirubin 3.9 mg/dL 11/03/21 04:39 AST 103 units/L (5-40) H 11/04/21 04:52 ALT 138 units/L (7-56) H 11/04/21 04:52 Alkaline Phosphatase 117 units/L (35-129) 11/04/21 04:52 Ammonia 62.0 umol/L (25-60) H 11/03/21 04:39 Total Creatine Kinase 1594 units/L (55-170) H 11/01/21 07:51 NT-Pro-B Natriuret Pep 01756 pg/mL (0-900) H 10/29/21 19:04 Total Protein 6.0 g/dL (6.3-8.2) L 11/04/21 04:52 Albumin 4.2 g/dL (3.9-5) 11/04/21 04:52 Albumin/Globulin Ratio 2.3 % 11/04/21 04:52 TSH 2.670 mlU/mL (0.270-4.200) 10/29/21 19:04 PTH Intact 170.9 pg/mL (15-65) H 10/31/21 04:59 Urine Color Straw (Yellow) 10/30/21 00:29 Urine Turbidity Clear (Clear) 10/30/21 00: Urine pH 7.0 (5.0-7.0) 10/30/21 00: Ur Specific [place] 1.030 (1.003-1.030) 10/30/21 00: Urine Protein 100 mg/dl mg/dL (Negative) 10/30/21 00:29 Urine Glucose (UA) Negative mg/dL (Negative) 10/30/21 00: Urine Ketones Negative mg/dL (Negative) 10/30/21 00: Urine Blood Negative (Negative) 10/30/21 00: Urine Nitrite Negative (Negative) 10/30/21 00: Ur Reducing Substances Not Reportable 10/30/21: Urine Bilirubin Negative (Negative) 10/30/21 00: Urine Ictotest Not Reportable 10/30/21 00: Urine Urobilinogen 0.0 mg/dL (<2.0) 10/30/21 00:29 Ur Leukocyte Esterase 1+ (Negative) 10/30/21 00: Urine WBC (Auto) 3.0 /HPF (0.0-6.0) 10/30/21 00: Urine RBC (Auto) 5.0 /HPF (0.0-6.0) 10/30/21 00:29 U Epithel Cells (Auto) 1.0 /HPF (0-13.0) 10/30/21: Hyaline Casts 4 /LPF 10/30/21 00:29 Urine Mucus Few /HPF 10/30/21 00:29 Urine Osmolality 339 Mosm/kg 10/30/21 00:29 Urine Creatinine 36.1 mg/dL (0.1-20.0) H 10/30/21 00:29 Urine Sodium 66 mmol/L 10/30/21 00:29 Salicylates < 0.3 mg/dL (2.8-20.0) L 10/29/21 19:04 Acetaminophen 5.0 ug/mL (10.0-30.0) L 10/29/21 19:04 Plasma/Serum Alcohol < 0.01 % (0-0.07) 10/29/21 19:04 Complement C3 88 mg/dL (82-185) 10/31/21 04:59 Complement C4 25 mg/dL (15-53) 10/31/21 04:59 Hepatitis A IgM Ab Non-reactive (NonReactive) 10/29/21 19:04 Hep Bs Antigen Non-reactive (Negative) 10/29/21 19:04 Hep B Core IgM Ab Non-reactive (NonReactive) 10/29/21 19:04 Hepatitis C Antibody Non-reactive (NonReactive) 10/29/21 19:04 Wu/IV: Voiding Method Indwelling Catheter Active Medications - Current Medications Current Medications: Generic Name Dose Route Start Last Admin Trade Name Freq PRN Reason Stop Dose Admin Acetaminophen 650 mg 11/01/21 12:39 Acetaminophen 325 Mg Tab PO Q6H PRN Pain MILD(1-3)/Fever >100.5/MILTON Acetazolamide 250 mg 11/04/21 16:00 11/04/21 15:44 Acetazolamide 500 Mg Vial IV 11/09/21 15:59 250 mg BID CAROL Administration Albuterol 2.5 mg 10/30/21 00:44 Albuterol 2.5 Mg/3 Ml Nebu IH Q3HRT PRN Shortness Of Breath Amlodipine Besylate 10 mg 11/04/21 11:00 11/04/21 10:02 Amlodipine 10 Mg Tab FEEDTUBE 10 mg QDAY CAROL Administration Chlordiazepoxide HCl 10 mg 11/04/21 09:07 Chlordiazepoxide 5 Mg Cap FEEDTUBE Q12H PRN Anxiety/AGITATION Clonidine HCl 0.1 mg 11/02/21 10:00 11/04/21 09:27 Clonidine 0.1 Mg Tab FEEDTUBE 0.1 mg DAILY CAROL Administration Furosemide 20 mg 11/05/21 10:00 Furosemide 20 Mg/2 Ml Inj IV DAILY CAROL Hydralazine HCl 10 mg 10/30/21 00:35 11/04/21 03:30 Hydralazine 20 Mg/1 Ml Inj IV 10 mg Q6H PRN Administration SBP >/=170; DBP >/=110 Hydralazine HCl 50 mg 11/04/21 22:00 Hydralazine 25 Mg Tab FEEDTUBE Q8HR CAROL Dexmedetomidine HCl 200 mcg/ 50 mls @ 4.604 mls/hr 11/04/21 10:00 11/04/21 11:40 Sodium Chloride IV 0.2 mcg/kg/hr TITRATE CAROL 4.604 mls/hr Titration Protocol 0.2 MCG/KG/HR Labetalol HCl 10 mg 10/30/21 08:51 10/30/21 09:25 Labetalol 20 Mg/4 Ml Inj IV 10 mg Q4HR PRN Administration sbp>160 Lactulose 20 gm 11/04/21 10:00 11/04/21 09:27 Lactulose 20 Gm/30 Ml Oral Liqd FEEDTUBE 20 gm DAILY CAROL Administration Lansoprazole 30 mg 11/03/21 10:00 11/04/21 09:27 Lansoprazole 30 Mg Solutab FEEDTUBE 30 mg QDAY CAROL Administration Naloxone HCl 0.4 mg 11/02/21 15:35 11/02/21 16:00 Naloxone 0.4 Mg/1 Ml Inj IV 0.4 mg ONCE CAROL Administration Ondansetron HCl 4 mg 10/30/21 00:44 Ondansetron 4 Mg/2 Ml Inj IV Q8H PRN Nausea And Vomiting Prednisone 5 mg 11/04/21 10:00 11/04/21 09:35 Prednisone 5 Mg Tab FEEDTUBE 11/13/21 10:01 5 mg QDAY CAROL Administration Rifaximin 550 mg 11/02/21 10:00 11/04/21 09:28 Rifaximin 550 Mg Tab FEEDTUBE 550 mg BID CAROL Administration Sodium Chloride 10 ml 10/30/21 10:00 11/04/21 09:28 Sodium Chloride 0.9% 10 Ml Flush Syringe IV 10 ml BID CAROL Administration Sodium Chloride 10 ml 10/30/21 00:44 Sodium Chloride 0.9% 10 Ml Flush Syringe IV PRN PRN LINE FLUSH Nutrition/Malnutrition Assess - Dietary Evaluation Nutrition/Malnutrition Findings: Nutrition Notes Start: 10/30/21 09:50 Freq: Status: Active Protocol: Document 11/04/21 14:21 LALA (Rec: 11/04/21 14:36 LALA [id number]) Nutrition Notes Need for Assessment generated from: MD Order Initial or Follow up Brief Note Current Diagnosis Acute Kidney Injury, Hypertension,Heart Failure, Respiratory Failure Other Pertinent Diagnosis Cirrhosis/Ascites, Hepatic Encephalopathy, HFrEF, Rabdomyolisis, EtOH Abuse Current Diet TF-Nepro w/CARBSTEADY @ 40 ml/ hr (from D 11/04). Height 5 ft 8 in Weight 92.079 kg [place] Body Weight (kg) 70.00 BMI 30.9 Weight change and time frame No body weight change reported in 5 days. Weight Status Obese Subjective/Other Information RD consult for write/manage TF assessment. Pt currently on NPO, MD requested TF order. Pt is on Nasal Cannula, O2 saturation @ 99%, according to Physical Assessment History notes. Percent of energy/protein needs met: Pt currently on NPO. Prescribed TF-Nepro w/ CARBSTEADY @ 40 ml/hr provides for energy/protein needs (1, 745 Kcal/79 g) during LOS, 95% Kcal; 100% AA. #1 Nutrition Diagnosis Swallowing difficulty Diagnosis Progress(for reassessment Continues documentation) Is patient on ventilator? No Is Patient Ambulatory and/or Out of Bed No REE-([facility]-confined to bed) 2092.332 Kcal/Kg value to use for calculation 29 Approximate Energy Requirements Using 2670 kcal/Kg Calculation Used for Recommendations Kcal/kg Additional Notes Protein: 0.8-1.2 g/Kg AdjBW; 65-81 g/day. Fluids: 1 ml/Kcal, or as per MD. Nutrition Intervention Nutrition Support: Restart TF-Nepro w/CARBSTEADY @ 40 ml/hr. Flush: 190 ml water Q 4 hr, or as per MD. Kcal 1,745 Protein (gm) 79 Carbohydrates (gm) 156 Fat (gm) 93 Fluid (mL) 705 Fiber (gm) 12 % RDI: 95% Kcal; 100% AA. Goal #1 Provide at least 75% of energy /protein needs through Enteral Feeding during LOS. Follow-Up By: 11/05/21 Additional Comments Start monitoring TF tolerance and BM. <ALTAF [id number] E - Last Filed: 11/04/21 20:14> Assessment and Plan Assessment and plan: I saw and evaluated the patient. I agree with the findings and the plan of care as documented in the Nurse Practitioner's~note, with the following corrections and additions. Hospitalist Physical - Constitutional Vitals: Temp Pulse Resp BP Pulse Ox 97.2 F L 59 L 21 131/92 84 11/04/21 19:36 11/04/21 19:33 11/04/21 19:33 11/04/21 19:33 11/04/21 19:33 Results - Labs CBC & Chem 7: 11/04/21 04:52 11/04/21 16:19 Labs: Laboratory Last Values WBC 18.8 K/mm3 (4.5-11.0) H 11/04/21 04:52 RBC 5.58 M/mm3 (3.65-5.03) H 11/04/21 04:52 Hgb 14.3 gm/dl (11.8-15.2) 11/04/21 04:52 Hct 44.7 % (35.5-45.6) 11/04/21 04:52 MCV 80 fl (84-94) L 11/04/21 04:52 MCH 26 pg (28-32) L 11/04/21 04:52 MCHC 32 % (32-34) 11/04/21 04:52 RDW 17.8 % (13.2-15.2) H 11/04/21 04:52 Plt Count 152 K/mm3 (140-440) 11/04/21 04:52 Lymph % (Auto) 4.5 % (13.4-35.0) L 11/01/21 07:51 [place] % (Auto) [employer] Super[employer] 11/01/21 07:51 Eos % (Auto) 0.4 % (0.0-4.3) 11/01/21 07:51 Baso % (Auto) 0.5 % (0.0-1.8) 11/01/21 07:51 Lymph # (Auto) 0.5 K/mm3 (1.2-5.4) L 11/01/21 07:51 [place] # (Auto) 0.6 K/mm3 (0.0-0.8) 11/01/21 07:51 Eos # (Auto) 0.0 K/mm3 (0.0-0.4) 11/01/21 07:51 Baso # (Auto) 0.0 K/mm3 (0.0-0.1) 11/01/21 07:51 Add Manual Diff Complete 10/31/21 04:59 Total Counted 100 10/31/21 04:59 Seg Neutrophils % [employer] 11/01/21 07:51 Seg Neuts % (Manual) 98.0 % (40.0-70.0) H 10/31/21 04:59 Band Neutrophils % 0 % 10/31/21 04:59 Lymphocytes % (Manual) 0 % (13.4-35.0) L 10/31/21 04:59 Reactive Lymphs % (Man) 0 % 10/31/21 04:59 Monocytes % (Manual) 2.0 % (0.0-7.3) 10/31/21 04:59 Eosinophils % (Manual) 0 % (0.0-4.3) 10/31/21 04:59 Basophils % (Manual) 0 % (0.0-1.8) 10/31/21 04:59 Metamyelocytes % 0 % 10/31/21 04:59 Myelocytes % 0 % 10/31/21 04:59 Promyelocytes % 0 % 10/31/21 04:59 Blast Cells % 0 % 10/31/21 04:59 Nucleated RBC % 2.0 % (0.0-0.9) H 10/31/21 04:59 Seg Neutrophils # 9.1 K/mm3 (1.8-7.7) H 11/01/21 07:51 Seg Neutrophils # Man 12.2 K/mm3 (1.8-7.7) H 10/31/21 04:59 Band Neutrophils # 0.0 K/mm3 10/31/21 04:59 Lymphocytes # (Manual) 0.0 K/mm3 (1.2-5.4) L 10/31/21 04:59 Abs React Lymphs (Man) 0.0 K/mm3 10/31/21 04:59 Monocytes # (Manual) 0.2 K/mm3 (0.0-0.8) 10/31/21 04:59 Eosinophils # (Manual) 0.0 K/mm3 (0.0-0.4) 10/31/21 04:59 Basophils # (Manual) 0.0 K/mm3 (0.0-0.1) 10/31/21 04:59 Metamyelocytes # 0.0 K/mm3 10/31/21 04:59 Myelocytes # 0.0 K/mm3 10/31/21 04:59 Promyelocytes # 0.0 K/mm3 10/31/21 04:59 Blast Cells # 0.0 K/mm3 10/31/21 04:59 WBC Morphology Not Reportable 10/31/21 04:59 Hypersegmented Neuts Not Reportable 10/31/21 04:59 Hyposegmented Neuts Not Reportable 10/31/21 04:59 Hypogranular Neuts Not Reportable 10/31/21 04:59 Smudge Cells Not Reportable 10/31/21 04:59 Toxic Granulation Not Reportable 10/31/21 04:59 Toxic Vacuolation Not Reportable 10/31/21 04:59 Dohle Bodies Not Reportable 10/31/21 04:59 Pelger-Huet Anomaly Not Reportable 10/31/21 04:59 Osmar Rods Not Reportable 10/31/21 04:59 Platelet Estimate Consistent w auto 10/31/21 04:59 Clumped Platelets Not Reportable 10/31/21 04:59 Plt Clumps, EDTA Not Reportable 10/31/21 04:59 Large Platelets Not Reportable 10/31/21 04:59 Giant Platelets Not Reportable 10/31/21 04:59 Platelet Satelliting Not Reportable 10/31/21 04:59 Plt Morphology Comment Not Reportable 10/31/21 04:59 RBC Morphology Not Reportable 10/31/21 04:59 Dimorphic RBCs Not Reportable 10/31/21 04:59 Polychromasia Not Reportable 10/31/21 04:59 Hypochromasia 1+ 10/31/21 04:59 Poikilocytosis Not Reportable 10/31/21 04:59 Anisocytosis Not Reportable 10/31/21 04:59 Microcytosis Not Reportable 10/31/21 04:59 Macrocytosis Not Reportable 10/31/21 04:59 Spherocytes Not Reportable 10/31/21 04:59 Pappenheimer Bodies Not Reportable 10/31/21 04:59 Sickle Cells Not Reportable 10/31/21 04:59 Target Cells Not Reportable 10/31/21 04:59 Tear Drop Cells Not Reportable 10/31/21 04:59 Ovalocytes Not Reportable 10/31/21 04:59 Helmet Cells Not Reportable 10/31/21 04:59 [place] Bodies Not Reportable 10/31/21 04:59 [place] Rings Not Reportable 10/31/21 04:59 [place] Cells Not Reportable 10/31/21 04:59 Bite Cells Not Reportable 10/31/21 04:59 Crenated Cell Not Reportable 10/31/21 04:59 Elliptocytes Not Reportable 10/31/21 04:59 Acanthocytes (Spur) Not Reportable 10/31/21 04:59 Rouleaux Not Reportable 10/31/21 04:59 Hemoglobin C Crystals Not Reportable 10/31/21 04:59 Schistocytes Not Reportable 10/31/21 04:59 Malaria parasites Not Reportable 10/31/21 04:59 [place] Bodies Not Reportable 10/31/21 04:59 Hem Pathologist Commnt No 10/31/21 04:59 PT 21.9 Sec. (12.2-14.9) H 11/03/21 04:39 INR 1.68 (0.87-1.13) H 11/03/21 04:39 APTT 29.0 Sec. (24.2-36.6) 10/29/21 19:04 ABG pH 7.473 pH Units (7.350-7.450) H 11/04/21 14:15 ABG pCO2 55.8 mm Hg 11/04/21 14:15 ABG pO2 65.7 mm Hg (80.0-90.0) L 11/04/21 14:15 ABG HCO3 40.0 mmol/L (20.0-26.0) H 11/04/21 14:15 ABG O2 Saturation 94.7 % (95.0-99.0) L 11/04/21 14:15 ABG O2 Content 18.1 (0.0-44) 11/04/21 14:15 ABG Base Excess 13.9 mmol/L (-2.0-3.0) H 11/04/21 14:15 ABG Hemoglobin 14.0 gm/dl (14.0-18.0) 11/04/21 14:15 ABG Carboxyhemoglobin 2.1 % (0.0-5.0) 11/04/21 14:15 ABG Methemoglobin 0.6 % (0.0-1.5) 11/04/21 14:15 Oxyhemoglobin 92.2 % (95.0-99.0) L 11/04/21 14:15 FiO2 21 % 11/04/21 14:15 Sodium 153 mmol/L (137-145) H 11/04/21 16:19 Potassium 2.4 mmol/L (3.6-5.0) L* 11/04/21 16:19 Chloride 98.4 mmol/L (98-107) 11/04/21 16:19 Carbon Dioxide 39 mmol/L (22-30) H 11/04/21 16:19 Anion Gap 18 mmol/L 11/04/21 16:19 BUN 109 mg/dL (9-20) H 11/04/21 16:19 Creatinine 2.0 mg/dL (0.8-1.3) H 11/04/21 16:19 Estimated GFR 43 ml/min 11/04/21 16:19 BUN/Creatinine Ratio 55 % 11/04/21 16:19 Glucose 119 mg/dL (75-100) H 11/04/21 16:19 POC Glucose 139 mg/dL (70-105) H 11/04/21 12:29 Calcium 9.4 mg/dL (8.4-10.2) 11/04/21 16:19 Phosphorus 4.30 mg/dL (2.5-4.5) 11/04/21 04:52 Magnesium 2.30 mg/dL (1.7-2.3) 11/04/21 04:52 Total Bilirubin 10.00 mg/dL (0.1-1.2) H 11/04/21 04:52 Direct Bilirubin 4.9 mg/dL (0-0.2) H 11/03/21 04:39 Indirect Bilirubin 3.9 mg/dL 11/03/21 04:39 AST 103 units/L (5-40) H 11/04/21 04:52 ALT 138 units/L (7-56) H 11/04/21 04:52 Alkaline Phosphatase 117 units/L (35-129) 11/04/21 04:52 Ammonia 62.0 umol/L (25-60) H 11/03/21 04:39 Total Creatine Kinase 1594 units/L (55-170) H 11/01/21 07:51 NT-Pro-B Natriuret Pep 13661 pg/mL (0-900) H 10/29/21 19:04 Total Protein 6.0 g/dL (6.3-8.2) L 11/04/21 04:52 Albumin 4.2 g/dL (3.9-5) 11/04/21 04:52 Albumin/Globulin Ratio 2.3 % 11/04/21 04:52 TSH 2.670 mlU/mL (0.270-4.200) 10/29/21 19:04 PTH Intact 170.9 pg/mL (15-65) H 10/31/21 04:59 Urine Color Straw (Yellow) 10/30/21 00:29 Urine Turbidity Clear (Clear) 10/30/21 00:29 Urine pH 7.0 (5.0-7.0) 10/30/21 00:29 Ur Specific [place] 1.030 (1.003-1.030) 10/30/21 00:29 Urine Protein 100 mg/dl mg/dL (Negative) 10/30/21 00:29 Urine Glucose (UA) Negative mg/dL (Negative) 10/30/21 00: Urine Ketones Negative mg/dL (Negative) 10/30/21 00: Urine Blood Negative (Negative) 10/30/21 00: Urine Nitrite Negative (Negative) 10/30/21 00:29 Ur Reducing Substances Not Reportable 10/30/21 00: Urine Bilirubin Negative (Negative) 10/30/21 00: Urine Ictotest Not Reportable 10/30/21 00: Urine Urobilinogen 0.0 mg/dL (<2.0) 10/30/21 00:29 Ur Leukocyte Esterase 1+ (Negative) 10/30/21 00:29 Urine WBC (Auto) 3.0 /HPF (0.0-6.0) 10/30/21 00: Urine RBC (Auto) 5.0 /HPF (0.0-6.0) 10/30/21 00:29 U Epithel Cells (Auto) 1.0 /HPF (0-13.0) 10/30/21 00:29 Hyaline Casts 4 /LPF 10/30/21 00:29 Urine Mucus Few /HPF 10/30/21 00:29 Urine Osmolality 339 Mosm/kg 10/30/21 00:29 Urine Creatinine 36.1 mg/dL (0.1-20.0) H 10/30/21 00:29 Urine Sodium 66 mmol/L 10/30/21 00:29 Salicylates < 0.3 mg/dL (2.8-20.0) L 10/29/21 19:04 Acetaminophen 5.0 ug/mL (10.0-30.0) L 10/29/21 19:04 Plasma/Serum Alcohol < 0.01 % (0-0.07) 10/29/21 19:04 Complement C3 88 mg/dL (82-185) 10/31/21 04:59 Complement C4 25 mg/dL (15-53) 10/31/21 04:59 Hepatitis A IgM Ab Non-reactive (NonReactive) 10/29/21 19:04 Hep Bs Antigen Non-reactive (Negative) 10/29/21 19:04 Hep B Core IgM Ab Non-reactive (NonReactive) 10/29/21 19:04 Hepatitis C Antibody Non-reactive (NonReactive) 10/29/21 19:04 Wu/IV: Voiding Method Indwelling Catheter Active Medications - Current Medications Current Medications: Generic Name Dose Route Start Last Admin Trade Name Freq PRN Reason Stop Dose Admin Acetaminophen 650 mg 11/01/21 12:39 Acetaminophen 325 Mg Tab PO Q6H PRN Pain MILD(1-3)/Fever >100.5/[place]IL[place] Acetazolamide 250 mg 11/04/21 16:00 11/04/21 15:44 Acetazolamide 500 Mg Vial IV 11/09/21 15:59 250 mg BID CAROL Administration Albuterol 2.5 mg 10/30/21 00:44 Albuterol 2.5 Mg/3 Ml Nebu IH Q3HRT PRN Shortness Of Breath Amlodipine Besylate 10 mg 11/04/21 11:00 11/04/21 10:02 Amlodipine 10 Mg Tab FEEDTUBE 10 mg QDAY CAROL Administration Chlordiazepoxide HCl 10 mg 11/04/21 09:07 Chlordiazepoxide 5 Mg Cap FEEDTUBE Q12H PRN Anxiety/AGITATION Clonidine HCl 0.1 mg 11/02/21 10:00 08/18/22 09:27 Clonidine 0.1 Mg Tab FEEDTUBE 0.1 mg DAILY CAROL Administration Furosemide 20 mg 11/05/21 10:00 Furosemide 20 Mg/2 Ml Inj IV DAILY CAROL Hydralazine HCl 10 mg 10/30/21 00:35 11/04/21 03:30 Hydralazine 20 Mg/1 Ml Inj IV 10 mg Q6H PRN Administration SBP >/=170; DBP >/=110 Hydralazine HCl 50 mg 11/04/21 22:00 Hydralazine 25 Mg Tab FEEDTUBE Q8HR CAROL Dexmedetomidine HCl 200 mcg/ 50 mls @ 4.604 mls/hr 11/04/21 10:00 11/04/21 19:48 Sodium Chloride IV 0.3 mcg/kg/hr TITRATE CAROL 6.906 mls/hr Titration Protocol 0.2 MCG/KG/HR Potassium Chloride 10 meq in 100 mls @ 100 mls/hr 11/04/21 19:00 11/04/21 19:50 Kcl 10meq/100ml IV 11/04/21 21:59 100 mls/hr Q1H CAROL Administration Cefepime HCl 1 gm in 100 mls @ 200 mls/hr 11/04/21 21:00 Cefepime/Ns 1 Gm/100 Ml IV Q8H CAROL Protocol Metronidazole 500 mg in 100 mls @ 100 mls/hr 11/04/21 22:00 Flagyl 500 Mg/100 Ml IV Q8H CAROL Protocol Labetalol HCl 10 mg 10/30/21 08:51 10/30/21 09:25 Labetalol 20 Mg/4 Ml Inj IV 10 mg Q4HR PRN Administration sbp>160 Lactulose 20 gm 11/04/21 10:00 11/04/21 09:27 Lactulose 20 Gm/30 Ml Oral Liqd FEEDTUBE 20 gm DAILY CAROL Administration Lansoprazole 30 mg 11/03/21 10:00 11/04/21 09:27 Lansoprazole 30 Mg Solutab FEEDTUBE 30 mg QDAY CAROL Administration Naloxone HCl 0.4 mg 11/02/21 15:35 11/02/21 16:00 Naloxone 0.4 Mg/1 Ml Inj IV 0.4 mg ONCE CAROL Administration Ondansetron HCl 4 mg 10/30/21 00:44 Ondansetron 4 Mg/2 Ml Inj IV Q8H PRN Nausea And Vomiting Potassium Chloride 40 meq 11/04/21 19:00 11/04/21 18:41 Potassium Chloride 20 Meq Packet FEEDTUBE 40 meq QDAY CAROL Administration Prednisone 5 mg 11/04/21 10:00 11/04/21 09:35 Prednisone 5 Mg Tab FEEDTUBE 11/13/21 10:01 5 mg QDAY CAROL Administration Rifaximin 550 mg 11/02/21 10:00 11/04/21 09:28 Rifaximin 550 Mg Tab FEEDTUBE 550 mg BID CAROL Administration Sodium Chloride 10 ml 10/30/21 10:00 11/04/21 09:28 Sodium Chloride 0.9% 10 Ml Flush Syringe IV 10 ml BID CAROL Administration Sodium Chloride 10 ml 10/30/21 00:44 Sodium Chloride 0.9% 10 Ml Flush Syringe IV PRN PRN LINE FLUSH Nutrition/Malnutrition Assess - Dietary Evaluation Nutrition/Malnutrition Findings: Nutrition Notes Start: 10/30/21 09:50 Freq: Status: Active Protocol: Document 11/04/21 14:21 LALA (Rec: 11/04/21 14:36 LALA [id number]) Nutrition Notes Need for Assessment generated from: MD Order Initial or Follow up Brief Note Current Diagnosis Acute Kidney Injury, Hypertension,Heart Failure, Respiratory Failure Other Pertinent Diagnosis Cirrhosis/Ascites, Hepatic Encephalopathy, HFrEF, Rabdomyolisis, EtOH Abuse Current Diet TF-Nepro w/CARBSTEADY @ 40 ml/ hr (from D 11/04). Height 5 ft 8 in Weight 92.079 kg [place] Body Weight (kg) 70.00 BMI 30.9 Weight change and time frame No body weight change reported in 5 days. Weight Status Obese Subjective/Other Information RD consult for write/manage TF assessment. Pt currently on NPO, requested TF order. Pt is on Nasal Cannula, O2 saturation @ 99%, according to Physical Assessment History notes. Percent of energy/protein needs met: Pt currently on NPO. Prescribed TF-Nepro w/ CARBSTEADY @ 40 ml/hr provides for energy/protein needs (1, 745 Kcal/79 g) during LOS, 95% Kcal; 100% AA. #1 Nutrition Diagnosis Swallowing difficulty Diagnosis Progress(for reassessment Continues documentation) Is patient on ventilator? No Is Patient Ambulatory and/or Out of Bed No REE-([place]-[facility] Jeor-confined to bed) 2092.332 Kcal/Kg value to use for calculation 29 Approximate Energy Requirements Using 2670 kcal/Kg Calculation Used for Recommendations Kcal/kg Additional Notes Protein: 0.8-1.2 g/Kg AdjBW; 65-81 g/day. Fluids: 1 ml/Kcal, or as per MD. Nutrition Intervention Nutrition Support: Restart TF-Nepro w/CARBSTEADY @ 40 ml/hr. Flush: 190 ml water Q 4 hr, or as per MD. Kcal 1,745 Protein (gm) 79 Carbohydrates (gm) 156 Fat (gm) 93 Fluid (mL) 705 Fiber (gm) 12 % RDI: 95% Kcal; 100% AA. Goal #1 Provide at least 75% of energy /protein needs through Enteral Feeding during LOS. Follow-Up By: 11/05/21 Additional Comments Start monitoring TF tolerance and BM.
[2021-11-04 17:31] LABS: Calcium 9.4 mg/dL (8.4-10.2)
--- NOTE | 2021-11-04 18:18 | Cat Scan Report ---
CT head/brain wo con INDICATION / CLINICAL INFORMATION: 51 years Male; encephalopathy. TECHNIQUE: Routine CT head without contrast. All CT scans at this location are performed using CT dos e reduction for ALARA by means of automated exposure control. COMPARISON: The study is compared with previous CT of 10/29/2021. FINDINGS: BRAIN / INTRACRANIAL CONTENTS: There has been interval development of CSF attenuation along the left cerebral convexity, particularly the left frontal region measure approximately 6-7 mm in greatest tra nsverse dimension from the previous CT of 10/29/2021. Milder findings noted along the right cerebral c onvexity again, most notably along the frontal region measuring 4 mm. The findings would appear most consistent with developing hygromas given the fairly short interval from the study 10/29/2021. 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 The hygromas result in mild degree of mass effect and sulcal effacement as well as mild mass effe ct upon the lateral ventricles which are otherwise unchanged. There is continued note of mild cerebra l atrophy. There is no clear CT evidence of acute intracranial hemorrhage. ORBITS: No significant abnormality of visualized orbits. SINUSES / MASTOIDS: There is presence of right-sided nasogastric tube. There is 1.2 cm retention cyst along the inferior right maxillary sinus with mild adjacent mucosal thickening. CRANIOCERVICAL JUNCTION: No significant abnormality. ADDITIONAL FINDINGS: None. IMPRESSION: 1. There has been interval development of subdural collections along the cerebral convexities, greate r on the left from 10/29/2021 as detailed above. The findings demonstrate CSF attenuation and would ap pear most consistent with hygromas. 2. There is continued moderate microvascular angiopathy without clear CT evidence of acute hemorrhage . Signer Name: David Ragsdale MD Signed: 11/04/2021 6:14 PM Workstation Name: [id number]
[2021-11-04] MEDS ORDERED: POTASSIUM CHLORIDE 20 MEQ PACKET FEEDTUBE SCH (19:00)
--- NOTE | 2021-11-04 19:01 | Event Note ---
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
--- NOTE | 2021-11-04 20:16 | Event Note ---
Date: 11/04/21 Called [facility] to discuss clinically findings of hygroma and effacement. Awaiting call back
[2021-11-04] MEDS ORDERED: CEFEPIME/NS 1 GM/100 ML 1 GM/100 ML BAG IV SCH (21:00)
[2021-11-04 21:04] LABS: Calcium 9.2 mg/dL (8.4-10.2)
[2021-11-04] MEDS ORDERED: propofoL 200 MG/20 ML VIAL IV ONE ×2 (21:30→21:40)
[2021-11-04] MEDS ORDERED: ROCURONIUM 50 MG/5 ML INJ IV ONE ×2 (21:30→21:42)
[2021-11-04] MEDS ORDERED: SUCCINYLCHOLINE CHLORIDE 200 MG/10 ML INJ MDV ONE (21:30)
[2021-11-04] MEDS ORDERED: SUCCINYLCHOLINE CHLORIDE 200 MG/10 ML INJ MDV IV ONE (21:41)
--- NOTE | 2021-11-04 21:52 | Procedure Note ---
Date of procedure: 11/04/21 (Emergency Intubation) Pre-op diagnosis: Brain Tumor Post-op diagnosis: same Procedure: Called for an emergency intubation on PT prior to transfer to [facility]. At bedside I identified the patient and allergies and did a quick chart review. All required monitors were applied and functioning. RT at bedside. 100mg Propofol was administered with 100mg Succinylcholine following for an RSI Intubation. Cricoid pressure was applied and a glidescope with a #3 mac blade was utilized for the intubation. A grade 1 view was observed and the tube was passed through the VC. Ambu bag was attached and pt was successfully ventilated with positive ETCO2 and BBS. The ETT was secured by RT and Pt was connected to a ventilator. Estimated blood loss: none Disposition: ICU (Emergency Intubation for Transport to [place])
[2021-11-04] MEDS ORDERED: metroNIDAZOLE/NS 500 MG/100 ML 500 MG/100 ML BAG IV SCH (22:00)
[2021-11-04] MEDS ORDERED: CEFEPIME/NS 2 GM/100 ML 2 GM/100 ML BAG IV SCH (22:00)
[2021-11-04 22:07] LABS: Albumin 3.4 g/dL (3.8-4.8); Gamma Globulin 1.1 g/dL (0.8-1.7)
[2021-11-04 22:38] LABS: ABG Base Excess 13.6 mmol/L (-2.0-3.0); ABG HCO3 38.8 mmol/L (20.0-26.0); ABG Methemoglobin 0.6 % (0.0-1.5); ABG Oxygen Saturation 99.6 % (95.0-99.0); ABG PCO2 50.9 mm Hg; ABG PH 7.501 pH Units (7.350-7.450)
--- NOTE | 2021-11-04 22:47 | XRay Report ---
CHEST 1 VIEW 11/04/2021 9:20 PM INDICATION / CLINICAL INFORMATION: S/P oral airway intubation. COMPARISON: 11/02/2021 FINDINGS: SUPPORT DEVICES: ET tube is 6.4 cm above the jazmyn HEART / MEDIASTINUM: Cardiomegaly LUNGS / PLEURA: Increased pulmonary vascularity with opacities in bilateral lungs No pneumothorax. Signer Name: Tristan Hatfield MD Signed: 11/04/2021 10:43 PM Workstation Name: [id number]
[2021-11-04 22:48] LABS: ABG PO2 507.4 mm Hg (80.0-90.0)
[2021-11-05] MEDS: hydrALAZINE 25 MG TAB FEEDTUBE SCH (00:18)
[2021-11-05] MEDS: RIFAXIMIN 550 MG TAB FEEDTUBE SCH (00:19)
[2021-11-05 02:22] VITALS: BP 146/100
[2021-11-05] MEDS ORDERED: FUROSEMIDE 20 MG/2 ML INJ IV SCH (10:00)
[2021-11-05] MEDS ORDERED: CEFEPIME/NS 2 GM/100 ML 2 GM/100 ML BAG IV SCH (12:00)
[2021-11-07 14:11] LABS: ANA Screen, IFA Negative (Negative)
[2021-11-07 16:06] LABS: Myeloperoxidase Antibody <1.0 AI (<1.0)
== END 2021-11-05 02:57 | disposition short-term general hospital (02) | DRG 441 ==
LOC: EDBD → ED 18:14 → MERGE 10-30 00:44 → IMCU 10-30 00:44 → CC1 10-30 10:01 → 3A 10-30 13:13 → IMCU 11-01 20:20 → CC1 11-01 21:24
PROVIDERS: ADMIT Hospitalist; ATTEND Internal Medicine
PROC: 5A09457 Assistance with Respiratory Ventilation, 24-96 Consecutive Hours, Continuous Positive Airway Pressure (ICD-10-PCS; 2021-11-01)
PROC: 4A033R1 Measurement of Arterial Saturation, Peripheral, Percutaneous Approach (ICD-10-PCS; 2021-11-03)
PROC: 5A1935Z Respiratory Ventilation, Less than 24 Consecutive Hours (ICD-10-PCS; principal; 2021-11-04)
PROC: 0BH17EZ Insertion of Endotracheal Airway into Trachea, Via Natural or Artificial Opening (ICD-10-PCS; 2021-11-04)
DX: K72.00 Acute and subacute hepatic failure without coma (principal); G93.41 Metabolic encephalopathy; K76.7 Hepatorenal syndrome; N17.0 Acute kidney failure with tubular necrosis; I50.23 Acute on chronic systolic (congestive) heart failure; J96.00 Acute respiratory failure, unspecified whether with hypoxia or hypercapnia; I16.1 Hypertensive emergency; M62.82 Rhabdomyolysis; I42.9 Cardiomyopathy, unspecified; Z20.822 Contact with and (suspected) exposure to COVID-19; K70.31 Alcoholic cirrhosis of liver with ascites; I11.0 Hypertensive heart disease with heart failure; E87.5 Hyperkalemia; K70.11 Alcoholic hepatitis with ascites; E87.6 Hypokalemia; F10.10 Alcohol abuse, uncomplicated; Y90.9 Presence of alcohol in blood, level not specified; Z82.49 Family history of ischemic heart disease and other diseases of the circulatory system
CPT/HCPCS: 36415; 36600; 70450; 71045; 74018; 76700; 76770; 80048; 80053; 80074; 80076; 80320; 81001; 82140; 82550; 82565; 82570; 82803; 82962; 83735; 83880; 83935; 83970; 84100; 84165; 84295; 84300; 84443; 85007; 85025; 85027; 85610; 85730; 86021; 86038; 86160; 87070; 87086; 87205; 93005; 93306; 94002; 94640; 94660; 94760; G0378; J3490; J7060; J7121; J7517; Q9967; C8929; G0480; J0330; J0360; J0692; J1120; J1610; J1815; J1940; J2060; J2310; J2704; J3480; J7070; J7512; P9047; U0003